=== PATIENT | male | born 1940 | race Caucasian/White ===

== ENCOUNTER 2018-11-08 17:07 | Inpatient (IN) | payer MEDICARE, OTHER ==
[~2018-11-08] VITALS: Ht 213 cm; Wt 89.8 kg
--- NOTE | 2018-11-08 16:45 | NUR ---
Report received from ANUSHA Carlson at [facility].
[2018-11-08 18:19] VITALS: BP 151/102
[2018-11-08] MEDS: TAMSULOSIN 0.4 MG (FLOMAX) CAP PO SCH (20:53)
--- NOTE | 2018-11-08 21:34 | PM&R H&P / Post Admit Assess ---
History of Present Illness HPI/Chief Complaint Chief complaint: Cervical spine stenosis status post predictable injury with upper extremity weakness History of present illness: This is an 78-year-old white male of Dr. Velarde in [facility] who is known to me from cervical spine surgery by Dr. Starr on 11/02/2018 at [facility] who is had a long wait for insurance approval from [facility] to be admitted to inpatient rehab due to severe cervical spine muscle weakness of the arms and legs. He had such severe stenosis that he has residual neurologic deficit to the upper extremities more than lower extremities. His bowels or not moving well but they did about 4 days ago he has not had any lung problems or prostate problems during his hospital course and [place] at [facility]. He thinks that he gets too drowsy with taking 2 of the hydrocodone pain pills in addition for the muscle relaxant so will decrease the dose on both but keep him comfortable nonetheless. His prior level of functioning was independent without the use of assistive devices and he will return home with his and supportive family. Source: patient, RN/MD, old records Exam Limitations: no limitations Date Seen 11/08/18 Time Seen by a Provider: 18:00 Attending Physician Calista Mercado DO PCP No,Local Physician Referring Physician Date of Admission Nov 08, 2018 at 17:48 Home Medications & Allergies Home Medications Reviewed patient Home Medication Reconciliation performed by pharmacy medication reconciliations install technician and/or nursing. Patients Allergies have been reviewed. Allergies Allergies Coded Allergies No Known Drug Allergies (Unverified11/08/18) Past Tgllzds-Ouizca-Jidzmc Hx Past Med/Social Hx: Reviewed Nursing Past Med/Soc Hx, Reviewed and Corrections made Patient Social History Marrital Status: Employed/Student: retired ([employer] profession in [place]) Alcohol Use: Denies Use Recreational Drug Use: No Smoking Status: Former Smoker Former Smoker, Quit: Nov 08, 1998 Type Used: Cigarettes Physical Abuse Screen: No Sexual Abuse: No Recent Foreign Travel: No Contact w/other who traveled: No Recent Hopitalizations: Yes Recent Infectious Disease Expo: No Immunizations Up To Date Date of Pneumonia Vaccine: Nov 04, 2016 Seasonal Allergies Seasonal Allergies: Yes Past Medical History Surgeries: Abdominal, Orthopedic Respiratory: Asthma Currently Using CPAP: No Currently Using BIPAP: No Genitourinary: Benign Prostatic Hyperpl, Prostate Problems History of Blood Disorders: No Family History Diabetes mellitus 19 FATHER G8 BROTHER G8 SISTER FH: aortic aneurysm 19 MOTHER FH: multiple sclerosis G8 SISTER FH: prostate cancer 19 FATHER Review of Systems Constitutional: see HPI EENTM: no symptoms reported Respiratory: no symptoms reported Cardiovascular: no symptoms reported Gastrointestinal: constipation Genitourinary: no symptoms reported Musculoskeletal: back pain Skin: no symptoms reported Psychiatric/Neurological: Numbness, Paresthesia, Tingling, Tremors, Weakness All Other Systems Reviewed Negative Unless Noted: Yes Physical Exam Exam Vital Signs Vital Signs Date Time Temp Pulse Resp B/P (MAP) Pulse Ox O2 Delivery O2 Flow Rate FiO2 11/08/18 18:19 37.1 80 16 151/102 94 Room Air Capillary Refill : General Appearance: No Apparent Distress, WD/WN, Chronically ill, Thin HEENT: PERRL/EOMI, Normal ENT Inspection, Pharynx Normal, Moist Mucous Membranes Neck: Full Range of Motion, Normal Inspection, Non Tender, Supple Respiratory: Chest Non Tender, Lungs Clear, Normal Breath Sounds, No Accessory Muscle Use, No Respiratory Distress Cardiovascular: Regular Rate, Rhythm, No Edema, No Gallop, No JVD, No Murmur Gastrointestinal: No Organomegaly, No Pulsatile Mass, Non Tender, Soft, Abnormal Bowel Sounds, Distended Back: Normal Inspection, No CVA Tenderness, No Vertebral Tenderness Extremity: Normal Capillary Refill, Normal Inspection, Normal Range of Motion, Non Tender, No Calf Tenderness, No Pedal Edema Neurologic/Psychiatric: Alert, Oriented x3, Normal Mood/Affect, stationary plant operators II-XII Norm as Tested, Motor Weakness (upper extremities 2/5 bilateral, legs 4/5) Skin: Normal Color, Warm/Dry Lymphatic: No Adenopathy Results Results/Procedures Labs Patient resulted labs reviewed. Assessment/Plan Assessment and Plan (1) Cervical spinal stenosis Status: Acute (2) Injury of cervical spine Status: Acute Qualifiers: Encounter type: subsequent encounter Qualified Codes: S14.109D - Unspecified injury at unspecified level of cervical spinal cord, subsequent encounter (3) BPH (benign prostatic hyperplasia) Status: Chronic Qualifiers: Lower urinary tract symptom presence: symptoms absent Qualified Codes: N40.0 - Benign prostatic hyperplasia without lower urinary tract symptoms (4) Constipation Status: Acute Qualifiers: Constipation type: slow transit constipation Qualified Codes: K59.01 - Slow transit constipation (5) Asthma Status: Chronic Qualifiers: Asthma severity: moderate Asthma persistence: unspecified Asthma complication type: unspecified Qualified Codes: J45.909 - Unspecified asthma, uncomplicated (6) Bilateral arm weakness Status: Acute (7) Risk for falls Status: Acute Post Admission Physician Asses Date seen by provider: Nov 08, 2018 Time seen by provider: 18:00 Admisison Dx: (1) Cervical spinal stenosis Status: Acute The preadmission screen agrees with the post admission assessment that the patient is a good candidate for inpatient rehabilitation. The patient will have a comprehensive program of inpatient rehabilitation with a goal of maximizing level of functional independence prior to discharge home with family. The patient will have PT/OT ninety minutes per day, each discipline, five days a week for gait, strengthening, conditioning, balance, ADLs, any patient/family/caregiver training as necessary. Speech therapy to do cognitive assessment and treat as indicated. Rehabilitation nursing to assist with bowel, bladder, skin, wound care, medication administration, pain management. Cryptography Teacher to assist with discharge planning, community reentry. SCD's for DVT prophylaxis. He appears to be well motivated to participate in three hours of therapy a day. He should be able to tolerate three hours of therapy a day from a medical standpoint. He should benefit from the three hours of therapy a day. He has a reasonable discharge plan, reasonable discharge rehabilitation goals and a supportive family. He has various comorbidities that need to be closely monitored with medications and treatments adjusted on a daily basis as needed. These include: see list Barriers to discharge for this patient who had been independent prior to this are for him to be modified independent to supervision for ADLs and mobility skills prior to discharge home with family, so as to lessen the burden of the caregivers. Risks for this patient include: 1. Fall 2. Fracture 3. DVT 4. Pulmonary embolism 5. Wound infection 6. Skin breakdown 7. Contractures 8. Poorly controlled pain 9. Urinary retention 10. UTI 11. Respiratory infection 12. Aspiration Estimated Length of Stay: 14 days Prognosis: Rehab prognosis appears good for goal of discharge home with family modified independent to supervision for ADLs and mobility skills. CALISTA MERCADO DO Nov 08, 2018 21:34
[2018-11-08] MEDS ORDERED: CALCIUM CARBONATE 500 MG (TUMS) TAB.CHEW PO PRN (21:45)
[2018-11-08] MEDS ORDERED: BISACODYL 10 MG SUPP (DULCOLAX) PR PRN (21:45)
[2018-11-08] MEDS ORDERED: diphenhydrAMINE 25 MG TAB (BENADRYL) PO PRN (21:45)
[2018-11-08] MEDS ORDERED: FLEET ENEMA ADULT 1 EA BTL PR PRN (21:45)
[2018-11-08] MEDS ORDERED: ONDANSETRON 4 MG (ZOFRAN) ORAL DISSOLVE TAB PO PRN (21:45)
[2018-11-08] MEDS ORDERED: LACTULOSE SYRUP 10GM/15ML (ENULOSE) 30ML UDC PO PRN (21:45)
[2018-11-08] MEDS: POLYETHYLENE GLYCOL 17 GM (MIRALAX) PACK PO SCH (21:51)
[2018-11-08] MEDS: SENNA W/DOCUSATE (SENOKOT S) TABLET PO SCH (21:51)
[2018-11-09] MEDS: HYDROcodone/APAP 5 MG/325 MG (LORTAB) TAB PO PRN ×6 (01:21→23:53)
[2018-11-09 04:59] LABS: BASOPHILS % (AUTO) 0 % (0-10); EOSINOPHILS # (AUTO) 0.1 10^3/uL (0.0-0.3); EOSINOPHILS % (AUTO) 1 % (0-10); HEMATOCRIT 41 % (40-54); LYMPHOCYTES # (AUTO) 2.1 X 10^3 (1.0-4.0); LYMPHOCYTES % (AUTO) 23 % (12-44); MEAN CORPUSCULAR HEMOGLOBIN 32 PG (25-34); MEAN CORPUSCULAR HGB CONC 34 G/DL (32-36); MEAN CORPUSCULAR VOLUME 95 FL (80-99); MEAN PLATELET VOLUME 9.9 FL (7.4-10.4); MONOCYTES # (AUTO) 0.6 X 10^3 (0.0-1.0); MONOCYTES % (AUTO) 6 % (0-12); NEUTROPHILS # (AUTO) 6.2 X 10^3 (1.8-7.8); NEUTROPHILS % (AUTO) 69 % (42-75); PLATELET COUNT 257 10^3/uL (130-400); RED CELL DISTRIBUTION WIDTH 12.4 % (10.0-14.5)
[2018-11-09 05:18] LABS: ALANINE AMINOTRANSFERASE 34 U/L (0-55); ALBUMIN 3.9 GM/DL (3.2-4.5); ALKALINE PHOSPHATASE 106 U/L (40-136); BILIRUBIN,TOTAL 0.5 MG/DL (0.1-1.0); BUN/CREATININE RATIO 25; CALCIUM 9.1 MG/DL (8.5-10.1); CARBON DIOXIDE 26 MMOL/L (21-32); CHLORIDE 97 MMOL/L (98-107); CREATININE SERUM 0.89 MG/DL (0.60-1.30); GFR ESTIMATED > 60; GLUCOSE 172 MG/DL (70-105); POTASSIUM 4.5 MMOL/L (3.6-5.0); SODIUM 131 MMOL/L (135-145); TOTAL PROTEIN 6.5 GM/DL (6.4-8.2)
[2018-11-09 05:22] VITALS: BP 145/85
[2018-11-09] MEDS: RT-ADVAIR HFA 115/21 MCG PER PUFF IH SCH ×2 (07:10→19:13)
[2018-11-09] MEDS: DOCUSATE SODIUM 100 MG (COLACE) CAP PO PRN (08:51)
[2018-11-09] MEDS: BACLOFEN 10 MG (LIORESAL) TAB PO PRN (08:51)
[2018-11-09] MEDS: TAMSULOSIN 0.4 MG (FLOMAX) CAP PO SCH ×2 (08:51→19:49)
--- NOTE | 2018-11-09 08:56 | Physical Therapy Evaluation ---
PT Evaluation-General Medical Diagnosis Admission Date Nov 08, 2018 at 17:48 Medical Diagnosis: cervical spine surgery Onset Date: Nov 02, 2018 Therapy Diagnosis Therapy Diagnosis: impaired mobility, strength, endurance, balance Precautions Precautions/Isolations: Fall Prevention, Standard Precautions Referral Physician: Calista Mercado DO Reason for Referral: Evaluation/Treatment Medical History Additional Medical History Past Medical History Surgeries: Abdominal, Orthopedic Respiratory: Asthma Currently Using CPAP: No Currently Using BIPAP: No Genitourinary: Benign Prostatic Hyperpl, Prostate Problems History of Blood Disorders: No Reviewed History: Yes Social History Home: Single Level Current Living Status: Spouse Entry Into Home: Level Entry Prior/Core FIM Prior Level of Function Therapy Code Descriptions/Definitions Functional [place] Measure: 0=Not Assessed/NA 4=Minimal Assistance 1=Total Assistance 5=Supervision or Setup 2=Maximal Assistance 6=Modified [place] 3=Moderate Assistance 7=Complete [place] Therapy Quality Codes: 6 Independent with activity with or without an assistive device 5 Patient requires set up or clean up by helper. Patient completes activity by themselves 4 Supervision or touching assist (CGA). [place] provide cues , steadying assist 3 The helper provides less than half the effort to complete the activity 2 The helper provides more than half the effort to complete the activity 1 Dependent. The helper does all the effort to complete an activity 7 Patient refused to complete or attempt activity 9 The patient did not perform the activity before the current illness or injury 88 Not attempted due to Medical conditions or safety concerns Functional Abilities and Goals: Independent: Patient completed the activities by him/herself, with or without an assistive device, with no assistance from a helper. Needed Some Help: Patient needed partial assistance from another person to complete activities. Dependent: A helper completed the activities for the patient. Unknown: Not Applicable: Bed Mobility: 7 Transfers (B,C,W/C) (FIM): 7 Gait: 7 Stairs: 7 Indoor Mobility (Ambulation): Independent Stairs: Independent PT Evaluation-Current Subjective Patient in recliner pre tx, agrees to PT, has 4/10 pain in neck, nurse notified of pain because patient wants pain meds. Pt/Family Goals "to walk out of here" Objective Patient Orientation: Person, Place, Situation cervical collar ROM/Strength ROM Lower Extremities WNL Strenght Lower Extremities LLE (hip flexion 3+/5, knee flexion 4-/5, knee extension 4+/5, dorsiflexion 3/5), RLE (hip flexion 3+/5, knee flexion 4-/5, knee extension 4+/5, dorsiflexion 3+/5) Sensory Vision: Functional Hearing: Functional Sensation Right Lower Extremit: Impaired Sensation Left Lower Extremity: Impaired Transfers Therapy Code Descriptions/Definitions Functional [place] Measure: 0=Not Assessed/NA 4=Minimal Assistance 1=Total Assistance 5=Supervision or Setup 2=Maximal Assistance 6=Modified [place] 3=Moderate Assistance 7=Complete [place] Therapy Quality Codes: 6 Independent with activity with or without an assistive device 5 Patient requires set up or clean up by helper. Patient completes activity by themselves 4 Supervision or touching assist (CGA). [place] provide cues , steadying assist 3 The helper provides less than half the effort to complete the activity 2 The helper provides more than half the effort to complete the activity 1 Dependent. The helper does all the effort to complete an activity 7 Patient refused to complete or attempt activity 9 The patient did not perform the activity before the current illness or injury 88 Not attempted due to Medical conditions or safety concerns Transfers (B, C, W/C) (FIM): 4 Scootin Rollin Roll Left to Right (QC): 4 Supine to/from Sit: 4 Sit to/from Stand: 4 Sit to Lying (QC): 3 Lying to Sitting/Side of Bed(Q: 3 Sit to Stand (QC): 3 Chair/Txx-sj-Gxfqr Xfer(QC): 4 Car Transfer (QC): 4 Patient performs bed mobility with SBA, supine <-> sit min assist, sit <-> stand min assist, transfers CGA, car transfer CGA. Patient needs cues for hand placement and safety. Patient is reluctant to place hands on bed or armrest when standing or sitting for some reason. He needs cues every time. Gait Does the Patient Walk?: Yes Mode of Locomotion: Walk Anticipated Mode of Locomotion: Walk Gait (FIM): 4 Walk 10 feet (QC): 4 Walk 50 ft with 2 Turns(QC): 4 Walk 150 ft (QC): 4 Walking 10ft/uneven surface-QC: 4 Distance: 150'x2 Gait Level of Assist: 4 Gait Persons Needed: 1 Gait Assistive Device: FWW Comments/Gait Description Patient can ambulate 150' with a rolling walker with CGA (including 50' with at least 2 turns of 90 degrees and 10' over an uneven surface). Patient has un steady moments, uncoordinated steps, but no jose LOB. Ambulates slowly. Stairs Stairs (FIM): 1 #of Steps: 1 Level of Assist: 4 1 Step (curb) (QC): 3 Assistive Device: Walker Patient can go up and down 1 step with min assist. Cues for positioning and safety. Balance Sitting Static: Normal Sitting Dynamic: Normal Standing Static: Fair Standing Dynamic: Fair Treatment NuStep level 4 for 15 min. Assessment/Needs Patient has impaired mobility, strength, endurance, balance. He is weaker in arms than legs. Needs cues for positioning and safety during treatment. Rehab Potential: Fair PT Short Term Goals Short Term Goals Time Frame: Nov 16, 2018 Transfers (B,C,W/C) (FIM): 4 (CGA) Gait (FIM): 4 Gait Distance Comment: 200' Gait Level of Assist: 4 Gait Assistive Device: FWW PT Clay Modeler Goals Clay Modeler Goals PT Clay Modeler Goals Time Frame: Nov 30, 2018 Transfers (B,C,W/C) (FIM): 5 Sit to Lying (QC): 6 Lying-Sitting on Side/Bed(QC): 6 Sit to Stand (QC): 4 Rollin Roll Left to Right (QC): 6 Chair/Cvv-ka-Qxfyb Xfer(QC): 4 Car Transfer (QC): 4 Gait (FIM): 5 Distance: 300' Walk 10 feet (QC): 4 Walk 10ft-Uneven Surface(QC): 4 Walk 50ft with 2 Turns (QC): 4 Walk 150 ft (QC): 4 Gait Level of Assist: 5 Gait Assistive Device: FWW Stairs (FIM): 2 # of Steps: 4 1 Step (curb) (QC): 4 4 Steps (QC): 4 Stairs Level Of Assist: 5 PT Plan Problem List Problem List: Activity Tolerance, Functional Strength, Safety, Balance, Gait, Transfer, Bed Mobility, ROM Treatment/Plan Treatment Plan: Continue Plan of Care Treatment Plan: Bed Mobility, Education, Functional Activity Mann, Functional Strength, Group Therapy, Gait, Safety, Therapeutic Exercise, Transfers Treatment Duration: Nov 30, 2018 Frequency: At least 5 of 7 days/Wk (IRF) Estimated Hrs Per Day: 1.5 hours per day Patient and/or Family Agrees t: Yes Safety Risks/Education Patient Education: Gait Training, Transfer Techniques, Steps, Reviewed Precautions, Correct Positioning, Safety Issues Teaching Recipient: Patient Teaching Methods: Demonstration, Discussion Response to Teaching: Reinforcement Needed Discharge Recommendations Plan Patient will perform bed mobility and transfer training, balance and endurance training, functional strengthening, stair training, gait training, and education, to improve functional mobility and independence at home. Therapy Discharge Recommendati: Other, See Comments (home with family assist) Time/GCodes Time In: 0800 Time Out: 0900 Total Billed Treatment Time: 60 Total Billed Treatment 1 visit EVM 30' FA 15' EX 15' OSORIO LOCKHART PT Nov 09, 2018 08:56
--- NOTE | 2018-11-09 08:59 | PM&R Progress Note ---
Subjective HPI/CC On Admission Date Seen by Provider: Nov 09, 2018 Time Seen by Provider: 09:00 Chief complaint: Cervical spine stenosis status post predictable injury with upper extremity weakness History of present illness: This is an 78-year-old white male of Dr. Velarde in [facility] who is known to me from cervical spine surgery by Dr. Starr on 11/02/2018 at [facility] who is had a long wait for insurance approval from [facility] to be admitted to inpatient rehab due to severe cervical spine muscle weakness of the arms and legs. He had such severe stenosis that he has residual neurologic deficit to the upper extremities more than lower extremities. His bowels or not moving well but they did about 4 days ago he has not had any lung problems or prostate problems during his hospital course and [place] at [facility]. He thinks that he gets too drowsy with taking 2 of the hydrocodone pain pills in addition for the muscle relaxant so will decrease the dose on both but keep him comfortable nonetheless. His prior level of functioning was independent without the use of assistive devices and he will return home with his and supportive family. Subjective/Events-last exam Pt doing very good but improving pain control with alternating Lortab and Baclofen, K Pad and Voltaren gel. Suppository and soap suds enema will be initiated today to get bowels moving Has limited range of motion lifting this arms due to the cervical spine stenosis and spinal cord injury Will need to recheck him from OT and PT standpoint Conferred with RN Checked meds and labs Reviewed therapy notes Review of Systems General: Fatigue Musculoskeletal: arm pain, leg pain Objective Exam Vital Signs Vital Signs Date Time Temp Pulse Resp B/P (MAP) Pulse Ox O2 Delivery O2 Flow Rate FiO2 11/09/18 21:01 Room Air 11/09/18 20:12 36.2 11/09/18 19:13 94 11/09/18 17:24 84 20 157/79 (105) Capillary Refill : General Appearance: No Apparent Distress, WD/WN, Chronically ill, Thin HEENT: PERRL/EOMI, Normal ENT Inspection, Pharynx Normal, Moist Mucous Membranes Neck: Full Range of Motion, Normal Inspection, Non Tender, Supple Respiratory: Chest Non Tender, Lungs Clear, Normal Breath Sounds, No Accessory Muscle Use, No Respiratory Distress Cardiovascular: Regular Rate, Rhythm, No Edema, No Gallop, No JVD, No Murmur Gastrointestinal: No Organomegaly, No Pulsatile Mass, Non Tender, Soft, Abnormal Bowel Sounds, Distended Back: Normal Inspection, No CVA Tenderness, No Vertebral Tenderness Extremity: Normal Capillary Refill, Normal Inspection, Normal Range of Motion, Non Tender, No Calf Tenderness, No Pedal Edema Neurologic/Psychiatric: Alert, Oriented x3, Normal Mood/Affect, tooth cutter clutch II-XII Norm as Tested, Motor Weakness (upper extremities 2/5 bilateral, legs 4/5) Skin: Normal Color, Warm/Dry Lymphatic: No Adenopathy Results/Procedures Lab Laboratory Tests 11/09/18 04:40 Patient resulted labs reviewed. FIM Transfers Therapy Code Descriptions/Definitions Functional [place] Measure: 0=Not Assessed/NA 4=Minimal Assistance 1=Total Assistance 5=Supervision or Setup 2=Maximal Assistance 6=Modified [place] 3=Moderate Assistance 7=Complete [place] Therapy Quality Codes: 6 Independent with activity with or without an assistive device 5 Patient requires set up or clean up by helper. Patient completes activity by themselves 4 Supervision or touching assist (CGA). [place] provide cues , steadying assist 3 The helper provides less than half the effort to complete the activity 2 The helper provides more than half the effort to complete the activity 1 Dependent. The helper does all the effort to complete an activity 7 Patient refused to complete or attempt activity 9 The patient did not perform the activity before the current illness or injury 88 Not attempted due to Medical conditions or safety concerns Assessment/Plan Assessment and Plan Assess & Plan/Chief Complaint Assessment: Cervical spine injury Extremity weakness Constipation Asthma BPH Plan: Monitor lungs BM regimen (1) Cervical spinal stenosis Status: Acute (2) Constipation Status: Acute Qualifiers: Constipation type: slow transit constipation Qualified Codes: K59.01 - Slow transit constipation (3) Asthma Status: Chronic Qualifiers: Asthma severity: moderate Asthma persistence: unspecified Asthma complication type: unspecified Qualified Codes: J45.909 - Unspecified asthma, uncomplicated (4) Bilateral arm weakness Status: Acute (5) Injury of cervical spine Status: Acute Qualifiers: Encounter type: subsequent encounter Qualified Codes: S14.109D - Unspecified injury at unspecified level of cervical spinal cord, subsequent encounter (6) BPH (benign prostatic hyperplasia) Status: Chronic Qualifiers: Lower urinary tract symptom presence: symptoms absent Qualified Codes: N40.0 - Benign prostatic hyperplasia without lower urinary tract symptoms (7) Risk for falls Status: Acute MAYRA TORREZ DO Nov 09, 2018 08:59
[2018-11-09] MEDS: SENNA W/DOCUSATE (SENOKOT S) TABLET PO SCH ×2 (09:00→19:49)
[2018-11-09] MEDS ORDERED: FLUT1DIS26 IH (09:29)
[2018-11-09] MEDS ORDERED: DOCU-143 PO (09:29)
[2018-11-09] MEDS ORDERED: TAMS0.4C98 PO (09:29)
[2018-11-09] MEDS ORDERED: ACET-2267 PO (09:29)
--- NOTE | 2018-11-09 09:32 | NUR ---
UPDATED MED REC WITH DISCHARGE INSTRUCTIONS FROM [facility]. NOTE THE FOLLOWING CHANGES WERE MADE AT THAT DISCHARGE THAT ARE NOT CURRENTLY REFLECTED ON THE HOME MED REC: START TAKING: DIAZEPAM 5MG Q6H PRN HYDROCODONE 10-325MG 1-2 Q4H PRN (THESE ARE BOTH SCRATCHED OUT HOWEVER IT IS UNCLEAR WHO MARKED THROUGH THEM) STOP TAKING: TYLENOL 500MG BID
[2018-11-09] MEDS ORDERED: BISACODYL 10 MG SUPP (DULCOLAX) PR SCH (09:45)
--- NOTE | 2018-11-09 10:44 | ST Cognitive Linguistic Eval ---
Speech Evaluation-General Medical Diagnosis cervical spine surgery Onset Date: Nov 02, 2018 Therapy Diagnosis Therapy Diagnosis: Cognitive-communication Precautions Precautions: Fall Precautions/Isolations: Fall Prevention, Standard Precautions Referral Referring Physician: Dr. Mercado Reason for Referral: Evaluation/Treatment Medical History Pertinent Medical History: Back Injury Patient has had spinal stenosis Current History Cervical Spine Surgery Reviewed History: Yes Social History Home: Single Level Current Living Status: Spouse Speech PLF-Current Status Prior Level of Function Patient lives at home with his where he plans to return post rehab. Subjective The patient was pleasant and cooperative with the cognitive assessment. Language Eval: Auditory Comprehends Simple Yes/No Ques: Functional Indent/Objects Multiple Ling: Functional Ident/Pics in Multiple Ling: Functional Follows 1-Step Commands: Functional Follows Complex Directions: Functional Follows General Conversations: Functional Language Eval: Verbal Language Completes Spontaneous Greeting: Functional Produces Auto, Serial Info: Functional Imitates Simple Words/Phrases: Functional Word Finding: Functional Requests Basic Needs: Functional States Basic Personal Info: Functional Expresses Complex Ideas: Functional Objective Cognitive Domain Attention: WNL Memory: Mild Problem Solving: Functional Executive Functions: WNL Visuospatial Skills: WNL Composite Severity Rating: WNL Clock Drawing Severity Rating: WNL Objective Formal/Standardized Tests [facility] Mental Status ([facility]) Results 28/30, within normal range of function Oral Motor/Speech Production Within functional limits Impression The patient is an 78 year old man who was admitted to the ARU s/p spine surgery. The patient was given the SLUMS with normal range of function indicated with a score of 28/30. The patient will not be receiving skilled ST at this time. Communication/Social Cognition Comprehension: 7 Expression: 7 Social Interaction: 7 Problem Solvin Memory: 7 Speech Patient Assess Expression of Ideas/Wants: Expression (4) Understanding Verbal Content: Understands (4) Brief Interview-Mental Status: Yes Repetition of Three Words: Three (3) Temporal Orientation: Year: Correct (3) Temporal Orientation: Month: Accurate within 5 days(2) Temporal Orientation: Day: Correct (1) Recall : Wear to say "Sock": Yes, no cue required (2) Recall : Color: Yes, no cue required (2) Recall : Bed: Yes,after cueing (1) Memory/Recall Ability: Current season, Location of own room, That he or she is in a hsp/hsp unit Speech-Plan Patient/Family Goals Patient/Family Goals: The patient plans on returning home with his post rehab. Treatment Plan Speech Therapy Treatment Plan: Discontinue ST The patient does not meet requirements for cognitive therapy. Treatment Duration: Nov 09, 2018 Frequency: 1 time per week Estimated Hrs Per Day: .25 hour per day Rehab Potential: Fair Barriers to Learning: None identified Pt/Family Agrees to Plan: Yes Safety Risks/Education Teaching Recipient: Patient Teaching Methods: Discussion Response to Teaching: Verbalize Understanding Education Topics Provided: Safety within his room and communication of his wants/needs Time Speech Therapy Time In: 09:15 Speech Therapy Time Out: 09:30 Total Billed Time: 15 Billed Treatment Time 1, SPSNDCOMP ADEN Johnson Nov 09, 2018 10:44
[2018-11-09] MEDS ORDERED: DICLOFENAC 1% GEL 100 GM (VOLTAREN) TUBE TOP PRN (11:00)
--- NOTE | 2018-11-09 13:34 | Occupational Therapy Eval ---
OT Evaluation-General/PLF Medical Diagnosis Admission Date Nov 08, 2018 at 17:48 Medical Diagnosis: cervical spine surgery Onset Date: Nov 02, 2018 Therapy Diagnosis Therapy Diagnosis: impaired self care skills Precautions Precautions/Isolations: Fall Prevention, Standard Precautions Safety Interventions: None Referral Physician: Calista Mercado DO Medical History Pertinent Medical History: Back Injury Additional Medical History BPH, Asthma Current History Pt s/p cervical spine surgery. Has rigid cervical collar in place Reviewed History: Yes Social History Home: Single Level Current Living Status: Spouse Entry Into Home: Level Entry ADL-Prior Level of Function Therapy Code Descriptions/Definitions Functional [place] Measure: 0=Not Assessed/NA 4=Minimal Assistance 1=Total Assistance 5=Supervision or Setup 2=Maximal Assistance 6=Modified [place] 3=Moderate Assistance 7=Complete [place] Therapy Quality Codes: 6 Independent with activity with or without an assistive device 5 Patient requires set up or clean up by helper. Patient completes activity by themselves 4 Supervision or touching assist (CGA). [place] provide cues , steadying assist 3 The helper provides less than half the effort to complete the activity 2 The helper provides more than half the effort to complete the activity 1 Dependent. The helper does all the effort to complete an activity 7 Patient refused to complete or attempt activity 9 The patient did not perform the activity before the current illness or injury 88 Not attempted due to Medical conditions or safety concerns Functional Abilities and Goals: Independent: Patient completed the activities by him/herself, with or without an assistive device, with no assistance from a helper. Needed Some Help: Patient needed partial assistance from another person to complete activities. Dependent: A helper completed the activities for the patient. Unknown: Not Applicable: ADL PLOF Comments Pt reports being independent with self care and mobility prior to admission. Did not use any assistive devices for mobility. Self Care: Independent DME/Equipment: Bath Chair, Shower, Tall Toilet Drive Self: Yes OT Current Status Subjective Pt sitting inchair, agrees to therapy. Pt reports 7/10 neck pain. Mental Status/Objective Patient Orientation: Person, Place, Situation Current Glasses/Contacts: Yes Hearing Aids: No Dentures/Partials: Yes Hand Dominance: Right Upper Extremity ROM Pt has minimal active shoulder ROM bilaterally. Able to tolerate PROM to ~90degrees. Upper Extremity Coordination Poor bilateral UE. (Pt unable to maintain personal property assessor on washcloth or comb during grooming tasks) Upper Extremity Sensation Decreased bilateral UE. Pt reports numbness and tingling. Upper Extremity Strength Formal MMT not completed secondary to recent cervical surgery. Pt has impaired strength bilaterally ADL-Treatment ADL-Current Pt participated in UE assessment while seated. Grooming tasks completed while sitting in chair. Pt unable to bring washcloth up to face. With elbow supported, but is able to wash lower portion of face, but has difficulty maintaining grasp on washcloth, requires assist to complete task. Pt unable to raise arm to brush hair. With assist to flex shoulder pt is able to comb sides of hair with hand over hand assist, but unable to comb back of head. Pt states he soaked his dentures last night and had assist to put them in his mouth this morning. Pt declined shower, but agreed to change shirt. Total assist required to doff/don shirt. Pt states he already changed shorts this morning. Pt unable to reach feet to don socks. Pt was instructed in use of sock aid. When sock was placed on sock aid, pt was able to don socks with mod assist and increased time. Pt sit to stand with min assist. Gait to restroom with FWW. Pt demonstrated ability to transfer on/off toilet with minimal assistance. Return to chair with min assist. Pt fatigues with activity and requires rest breaks throughout treatment. Pt was issued medium resistance therapy sponge to increase personal property assessor strength. Pt performed bilateral hand personal property assessor exercises x20 reps to increase strength for functional tasks. Education provided regarding role of therapy and plan of care. Pt states understanding of education and is in agreement with plan. Pt sitting in chair with needs met after session. Eating (FIM): 1 (nurse aide reports pt required total assist to eat breakfast this morning) Eating (QC): 1 Grooming (FIM): 1 Upper Body Dressing (FIM): 1 Upper Body Dressing (QC): 1 Toilet/Commode Transfer (FIM): 4 Toilet Transfer (QC): 3 Education OT Patient Education: Rehab process Teaching Recipient: Patient Teaching Methods: Discussion Response to Teaching: Verbalize Understanding OT Short Term Goals Short Term Goals Time Frame: Nov 16, 2018 Eating(FIM): 3 Grooming(FIM): 3 Upper Body Dressing(FIM): 3 Lower Body Dressing(FIM): 3 Toilet/Commode Transfer(FIM): 4 (CGA) Additional Short Term Goals: 1-Demonstrate ADL Tasks, 2-Verbalize Understanding, 3-ImproveStrength/Mann 1=Demonstrate adherence to instructed precautions during ADL tasks. 2=Patient will verbalize/demonstrate understanding of assistive d evices/modifications for ADL. 3=Patient will improve strength/tolerance for activity to enable patient to perform ADL's. OT Mcfp Goals Mcfp Goals Time Frame: Nov 30, 2018 Eating (FIM): 5 Eating (QC): 5 Groomin Oral Hygiene (QC): 5 Bathing(FIM): 5 Shower/Bathe Self (QC): 4 Upper Body Dressing(FIM): 5 Upper Body Dressing (QC): 5 Lower Body Dressing(FIM): 5 Lower Body Dressing (QC): 4 On/Off Footwear (QC): 5 Toileting(FIM): 5 Toileting Hygiene (QC): 5 Toilet/Commode Transfer(FIM): 5 Toilet/Commode Transfer (QC): 5 Shower Transfer(FIM): 5 Additional Goals: 1-Demonstrate ADL Tasks, 2-Verbalize Understanding, 3- ImproveStrength/Mann 1=Demonstrate adherence to instructed precautions during ADL tasks. 2=Patient will verbalize/demonstrate understanding of assistive devices/modifications for ADL. 3=Patient will improve strength/tolerance for activity to enable patient to perform ADL's. OT Education/Plan Problem List/Assessment Assessment: Decreased Activ Tolerance, Decreased UE Strength, Dependent Transfers, Impaired Coordination, Impaired Funct Balance, Impaired I ADL's, Impaired Self-Care Skills, Restricted Funct UE ROM Pt s/p cervical surgery with decreased strength and coordination impacting ability to perform functional tasks. Pt to benefit from skilled OT intervention for ADL training, transfers, strengthening, coordination, adaptive equipment training, and home safety education to increase level of independence and allow safe discharge home. Discharge Recommendations Plan/Recommendations: Continue POC Treatment Plan/Plan of Care Treatment,Training & Education: Yes Patient would benefit from OT for education, treatment and training to promote independence in ADL's, mobility, safety and/or upper extremity function for ADL's. Plan of Care: ADL Retraining, Functional Mobility, Group Exercise/Act as Ind, UE Funct Exercise/Act, UE Neuromus Re-Ed/Coord Treatment Duration: Nov 30, 2018 Frequency: At least 5 of 7 days/Wk (IRF) Estimated Hrs Per Day: 1.5 hours per day Agreement: Yes Rehab Potential: Fair Time/GCodes Start Time: 09:30 Stop Time: 11:00 Total Time Billed (hr/min): 90 Billed Treatment Time 1 visit, EVM(30minutes), ADLx4(60minutes), RACHELLE SUAREZ OT Nov 09, 2018 13:34
--- NOTE | 2018-11-09 13:35 | Physical Therapy Daily Note ---
PT Daily Note-Current Subjective Patient in recliner pre tx, agrees to PT, has no complaints of pain. Appearance Patient in recliner post tx with nurse call, phone, tray, all needs met. Mental Status Patient Orientation: Person, Place, Situation Transfers Therapy Code Descriptions/Definitions Functional [place] Measure: 0=Not Assessed/NA 4=Minimal Assistance 1=Total Assistance 5=Supervision or Setup 2=Maximal Assistance 6=Modified [place] 3=Moderate Assistance 7=Complete [place] Therapy Quality Codes: 6 Independent with activity with or without an assistive device 5 Patient requires set up or clean up by helper. Patient completes activity by themselves 4 Supervision or touching assist (CGA). [place] provide cues , steadying assist 3 The helper provides less than half the effort to complete the activity 2 The helper provides more than half the effort to complete the activity 1 Dependent. The helper does all the effort to complete an activity 7 Patient refused to complete or attempt activity 9 The patient did not perform the activity before the current illness or injury 88 Not attempted due to Medical conditions or safety concerns Transfers (B, C, W/C) (FIM): 4 Sit to/from Stand: 4 Bed to/from Chair: 4 CGA, needs cues for positioning Gait Training Gait (FIM): 4 Distance: 150'x2 Gait Level of Assist: 4 Gait Persons Needed: 1 Gait Assistive Device: FWW CGA, some unsteadiness but no LOB, slow ambulation Exercises Standing: Hip Abduction, Heel/toe raises, Marching, Mini squats LAQ alternating for 5 min Treatments ambulation, transfers, LE exercise, toileting (patient needs assist getting pants down and up) Assessment Current Status: Fair Progress improving LE strength and endurance PT Short Term Goals Short Term Goals Time Frame: Nov 16, 2018 Transfers (B,C,W/C) (FIM): 4 (CGA) Gait (FIM): 4 Gait Distance Comment: 200' Gait Level of Assist: 4 Gait Assistive Device: FWW PT Half-Way Goals Half-Way Goals PT Rn Anesthesiology Goals Time Frame: Nov 30, 2018 Transfers (B,C,W/C) (FIM): 5 Sit to Lying (QC): 6 Lying-Sitting on Side/Bed(QC): 6 Sit to Stand (QC): 4 Rollin Roll Left to Right (QC): 6 Chair/Ntu-jx-Knohh Xfer(QC): 4 Car Transfer (QC): 4 Gait (FIM): 5 Distance: 300' Walk 10 feet (QC): 4 Walk 10ft-Uneven Surface(QC): 4 Walk 50ft with 2 Turns (QC): 4 Walk 150 ft (QC): 4 Gait Level of Assist: 5 Gait Assistive Device: FWW Stairs (FIM): 2 # of Steps: 4 1 Step (curb) (QC): 4 4 Steps (QC): 4 Stairs Level Of Assist: 5 PT Plan Problem List Problem List: Activity Tolerance, Functional Strength, Safety, Balance, Gait, Transfer, Bed Mobility Treatment/Plan Treatment Plan: Continue Plan of Care Treatment Plan: Bed Mobility, Education, Functional Activity Mann, Functional Strength, Group Therapy, Gait, Safety, Therapeutic Exercise, Transfers Treatment Duration: Nov 30, 2018 Frequency: At least 5 of 7 days/Wk (IRF) Estimated Hrs Per Day: 1.5 hours per day Patient and/or Family Agrees t: Yes Safety Risks/Education Patient Education: Gait Training, Transfer Techniques, Correct Positioning, Safety Issues Teaching Recipient: Patient Teaching Methods: Demonstration, Discussion Response to Teaching: Reinforcement Needed Time/GCodes Time In: 1300 Time Out: 1330 Total Billed Treatment Time: 30 Total Billed Treatment 1 visit EX 15' GT 15' OSORIO LOCKHART PT Nov 09, 2018 13:35
--- NOTE | 2018-11-09 14:30 | NUR ---
Met with patient to complete initial assessment. Patient admitted to ARU on 11/08, with a diagnosis of Spinal Cord Dysfunction - Non Traumatic; Cervical Spondylosis with Myelopathy; Severe Cervical Stenosis, Neural Canal and Neural Foramen; Cervical Radiculopathy. Patient underwent C2-T2 PSF/C3-7 laminectomy with bone graft; s/p dura tear. This procedure was completed at [facility], by Dr. Starr. Prior to hospitalization the patient was living with his spouse in [place], [place]. He was reportedly independent with ADLs and functionally mobile without the use of an AD. Patient states he has a hip kit, shower chair, and a tall toilet. Patient identifies his PCP as Dr. Sanchez Pandey of [place], [place]. Patient identified his spouse, Kathryn as his primary contact ([phone]). Patient confirmed his primary insurance provider to [employer], with no supplemental coverage. Patient states his preferred pharmacy is [facility]. The purpose of Weekly Team Conference was discussed and patient displayed understanding and no concerns. Will continue to follow for ongoing discharge planning.
--- NOTE | 2018-11-09 14:30 | NUR ---
Met with patient and spouse to review Team Conference Summary. Patient agreeable to information discussed as well as to a continued stay with review at the next conference, 11/16. Clinical updates are required to be submitted to [facility], November 15. Will continue to follow for ongoing discharge planning.
[2018-11-09] MEDS: POLYETHYLENE GLYCOL 17 GM (MIRALAX) PACK PO SCH ×2 (15:19→19:55)
[2018-11-09 17:24] VITALS: BP 157/79
[2018-11-10] MEDS: HYDROcodone/APAP 5 MG/325 MG (LORTAB) TAB PO PRN ×5 (04:11→20:37)
[2018-11-10 05:04] VITALS: BP 155/82
[2018-11-10] MEDS: RT-ADVAIR HFA 115/21 MCG PER PUFF IH SCH ×2 (07:35→19:54)
[2018-11-10] MEDS: TAMSULOSIN 0.4 MG (FLOMAX) CAP PO SCH ×2 (08:30→20:37)
--- NOTE | 2018-11-10 08:57 | Physical Therapy Daily Note ---
PT Daily Note-Current Subjective Patient in recliner pre tx, agrees to PT, has 8/10 pain, nurse notified and he got pain meds during treatment. Appearance Patient in recliner post tx with nurse call, phone, tray, legs elevated and requested SCD's on. Mental Status Patient Orientation: Normal For Age cervical collar Transfers Therapy Code Descriptions/Definitions Functional [place] Measure: 0=Not Assessed/NA 4=Minimal Assistance 1=Total Assistance 5=Supervision or Setup 2=Maximal Assistance 6=Modified [place] 3=Moderate Assistance 7=Complete [place] Therapy Quality Codes: 6 Independent with activity with or without an assistive device 5 Patient requires set up or clean up by helper. Patient completes activity by themselves 4 Supervision or touching assist (CGA). [place] provide cues , steadying assist 3 The helper provides less than half the effort to complete the activity 2 The helper provides more than half the effort to complete the activity 1 Dependent. The helper does all the effort to complete an activity 7 Patient refused to complete or attempt activity 9 The patient did not perform the activity before the current illness or injury 88 Not attempted due to Medical conditions or safety concerns Transfers (B, C, W/C) (FIM): 4 Sit to/from Stand: 4 Bed to/from Chair: 4 Min assist sit to stand from lower surfaces, CGA for transfers, cues for hand placement Gait Training Gait (FIM): 4 Distance: 150'x2 Gait Level of Assist: 4 Gait Persons Needed: 1 Gait Assistive Device: FWW slow ambulation, more unsteady but still CGA, difficulty with clearance and step-through on right side Exercises sit to stand from elevated surface 3 sets of 10, LAQ alternating for 5 min NuStep Minutes: 15 NuStep Workload: 4 Treatments LE exercise, ambulation, transfers Assessment Current Status: Fair Progress patient has good motivation PT Short Term Goals Short Term Goals Time Frame: Nov 16, 2018 Gait (FIM): 4 Gait Distance Comment: 200' Gait Level of Assist: 4 Gait Assistive Device: FWW PT Manufacturing Chief Engineer Goals Usp Goals PT Usp Goals Time Frame: Nov 30, 2018 Transfers (B,C,W/C) (FIM): 5 Sit to Lying (QC): 6 Lying-Sitting on Side/Bed(QC): 6 Sit to Stand (QC): 4 Rollin Roll Left to Right (QC): 6 Chair/Fie-vj-Lwluy Xfer(QC): 4 Car Transfer (QC): 4 Gait (FIM): 5 Distance: 300' Walk 10 feet (QC): 4 Walk 10ft-Uneven Surface(QC): 4 Walk 50ft with 2 Turns (QC): 4 Walk 150 ft (QC): 4 Gait Level of Assist: 5 Gait Assistive Device: FWW Stairs (FIM): 2 # of Steps: 4 1 Step (curb) (QC): 4 4 Steps (QC): 4 Stairs Level Of Assist: 5 PT Plan Problem List Problem List: Activity Tolerance, Functional Strength, Safety, Balance, Gait, Transfer, Bed Mobility, ROM Treatment/Plan Treatment Plan: Continue Plan of Care Treatment Plan: Bed Mobility, Education, Functional Activity Mann, Functional Strength, Group Therapy, Gait, Safety, Therapeutic Exercise, Transfers Treatment Duration: Nov 30, 2018 Frequency: At least 5 of 7 days/Wk (IRF) Estimated Hrs Per Day: 1.5 hours per day Patient and/or Family Agrees t: Yes Safety Risks/Education Patient Education: Gait Training, Transfer Techniques, Correct Positioning, Safety Issues Teaching Recipient: Patient Teaching Methods: Demonstration, Discussion Response to Teaching: Reinforcement Needed Time/GCodes Time In: 0800 Time Out: 0900 Total Billed Treatment Time: 60 Total Billed Treatment 1 visit EX 25' FA 15' GT 20' OSORIO LOCKHART PT Nov 10, 2018 08:57
[2018-11-10] MEDS: POLYETHYLENE GLYCOL 17 GM (MIRALAX) PACK PO SCH ×2 (09:00→20:40)
[2018-11-10] MEDS: SENNA W/DOCUSATE (SENOKOT S) TABLET PO SCH ×2 (09:00→20:40)
--- NOTE | 2018-11-10 12:56 | PM&R Progress Note ---
Subjective HPI/CC On Admission Date Seen by Provider: Nov 10, 2018 Time Seen by Provider: 09:00 Chief complaint: Cervical spine stenosis status post predictable injury with upper extremity weakness History of present illness: This is an 78-year-old white male of Dr. Velarde in [facility] who is known to me from cervical spine surgery by Dr. Starr on 11/02/2018 at [facility] who is had a long wait for insurance approval from [facility] to be admitted to inpatient rehab due to severe cervical spine muscle weakness of the arms and legs. He had such severe stenosis that he has residual neurologic deficit to the upper extremities more than lower extremities. His bowels or not moving well but they did about 4 days ago he has not had any lung problems or prostate problems during his hospital course and [place] [facility]. He thinks that he gets too drowsy with taking 2 of the hydrocodone pain pills in addition for the muscle relaxant so will decrease the dose on both but keep him comfortable nonetheless. His prior level of functioning was independent without the use of assistive devices and he will return home with his and supportive family. Subjective/Events-last exam Large BM last night. Doing extremely well. Balance issues today and reassured . Walking not as good but we will pursue that today. Overall in improved condition. Will need to recheck him from OT and PT standpoint Conferred with RN Checked meds and labs Reviewed therapy notes Review of Systems Musculoskeletal: neck pain, arm pain, leg pain Objective Exam Vital Signs Vital Signs Date Time Temp Pulse Resp B/P (MAP) Pulse Ox O2 Delivery O2 Flow Rate FiO2 11/10/18 19:56 95 Room Air 11/10/18 16:22 36.4 80 16 130/75 (93) Capillary Refill : General Appearance: No Apparent Distress, WD/WN, Chronically ill, Thin HEENT: PERRL/EOMI, Normal ENT Inspection, Pharynx Normal, Moist Mucous Membranes Neck: Full Range of Motion, Normal Inspection, Non Tender, Supple Respiratory: Chest Non Tender, Lungs Clear, Normal Breath Sounds, No Accessory Muscle Use, No Respiratory Distress Cardiovascular: Regular Rate, Rhythm, No Edema, No Gallop, No JVD, No Murmur Gastrointestinal: No Organomegaly, No Pulsatile Mass, Non Tender, Soft, Abnorm al Bowel Sounds, Distended Back: Normal Inspection, No CVA Tenderness, No Vertebral Tenderness Extremity: Normal Capillary Refill, Normal Inspection, Normal Range of Motion, Non Tender, No Calf Tenderness, No Pedal Edema Neurologic/Psychiatric: Alert, Oriented x3, Normal Mood/Affect, remote inpatient coder II-XII Norm as Tested, Motor Weakness (upper extremities 2/5 bilateral, legs 4/5) Skin: Normal Color, Warm/Dry Lymphatic: No Adenopathy Results/Procedures Lab Patient resulted labs reviewed. FIM Transfers Therapy Code Descriptions/Definitions Functional [place] Measure: 0=Not Assessed/NA 4=Minimal Assistance 1=Total Assistance 5=Supervision or Setup 2=Maximal Assistance 6=Modified [place] 3=Moderate Assistance 7=Complete [place] Therapy Quality Codes: 6 Independent with activity with or without an assistive device 5 Patient requires set up or clean up by helper. Patient completes activity by themselves 4 Supervision or touching assist (CGA). [place] provide cues , steadying assist 3 The helper provides less than half the effort to complete the activity 2 The helper provides more than half the effort to complete the activity 1 Dependent. The helper does all the effort to complete an activity 7 Patient refused to complete or attempt activity 9 The patient did not perform the activity before the current illness or injury 88 Not attempted due to Medical conditions or safety concerns Transfers (B, C, W/C) (FIM): 4 Scootin Rollin Roll Left to Right (QC): 4 Supine to/from Sit: 4 Sit to/from Stand: 4 Sit to Lying (QC): 3 Sit to Stand (QC): 3 Chair/Yad-dk-Qsnxb Xfer(QC): 4 Bed to/from Chair: 4 Car Transfer (QC): 4 Gait Training Does the Patient Walk?: Yes Gait (FIM): 4 Distance: 150'x2 Walk 10 feet (QC): 4 Walk 50 ft with 2 Turns(QC): 4 Walk 150 ft (QC): 4 Walking 10ft/uneven surface-QC: 4 Gait Level of Assist: 4 Gait Persons Needed: 1 Gait Assistive Device: FWW Wheelchair Training Does the Pt Use a Wheelchair?: No Stair Training Stairs (FIM): 1 #of Steps: 1 1 Step (curb) (QC): 3 Level of Assist: 4 Mental Status/Objective Comprehension: 7 Expression: 7 Social Interaction: 7 Problem Solvin Memory: 7 ADL-Treatment Feedin (nurse aide reports pt required total assist to eat breakfast this morning) Eating (QC): 1 Groomin Upper Extremity Dressin Upper Body Dressing (QC): 1 Toilet/Commode Transfer: 4 Toilet Transfer (QC): 3 Assessment/Plan Assessment and Plan Assess & Plan/Chief Complaint Assessment: Cervical spine injury Extremity weakness Constipation Asthma BPH Plan: Monitor lungs BM regimen to be maintained (1) Cervical spinal stenosis Status: Acute (2) Constipation Status: Acute Qualifiers: Constipation type: slow transit constipation Qualified Codes: K59.01 - Slow transit constipation (3) Asthma Status: Chronic Qualifiers: Asthma severity: moderate Asthma persistence: unspecified Asthma complication type: unspecified Qualified Codes: J45.909 - Unspecified asthma, uncomplicated (4) Bilateral arm weakness Status: Acute (5) Injury of cervical spine Status: Acute Qualifiers: Encounter type: subsequent encounter Qualified Codes: S14.109D - Unspecified injury at unspecified level of cervical spinal cord, subsequent encounter (6) BPH (benign prostatic hyperplasia) Status: Chronic Qualifiers: Lower urinary tract symptom presence: symptoms absent Qualified Codes: N40.0 - Benign prostatic hyperplasia without lower urinary tract symptoms (7) Risk for falls Status: Acute MAYRA TORREZ DO Nov 10, 2018 12:56
--- NOTE | 2018-11-10 12:57 | Individualized Plan of Care ---
Individualized Plan of Care Rehab Nursing IPOC Order Admission Date Nov 08, 2018 at 17:48 Current Orders Orders Admission Order(Inpt,Obs,Sdc) (11/08/18 17:18) Vital Signs: Per Unit Policy ( 08,16,00 (11/08/18 17:18) Lime Sludge Mixer-Inpt Rehab Con (11/08/18 17:18) Rehab Nursing Orders-Ipoc (11/08/18 17:18) Physical Therapy Rehab Orders (11/08/18 17:18) Occupational Therapy Rehab Ord (11/08/18 17:18) Speech Therapy Rehab Orders (11/08/18 17:18) Intake & Output 06,14,22 (11/08/18 17:18) Precautions (Aru) (11/08/18 17:18) Weekly Weight (Lbs) WEEK (11/08/18 17:18) Rehab-Intensity Of Therapy (11/08/18 17:18) Initiate Admission Nursing Pro .admission (11/08/18 17:18) Initiate Admission Nursing Pro .admission (11/08/18 17:18) Cbc With Automated Diff (11/09/18 06:00) Comprehensive Metabolic Panel (11/09/18 06:00) General/Regular (11/08/18 Dinner) Follow-Up Appointment D/C (11/08/18 18:20) Nursing Communication (Order) (11/08/18 18:20) Ambulate 08,12,20 (11/08/18 18:36) Sequential Compression Device .once (11/08/18 18:36) Dvt/Vte Risk - Notifiy Physici .admit once (11/08/18 18:36) Ivan Morse 09,21 (11/08/18 18:42) Tamsulosin Capsule (Flomax Capsule) (11/08/18 21:00) Dressing Order (Intervention) DAILY (11/08/18 18:42) Docusate Sodium Capsule (Colace Capsule) (11/08/18 18:45) Fluticasone/Salmeterol Common (Advair 11 (11/09/18 09:00) Hydrocodone/Apap 5/325 Tablet (Lortab 5 (11/08/18 19:00) Baclofen Tablet (Lioresal Tablet) (11/08/18 19:00) Acetaminophen Tablet (Tylenol Tablet) (11/08/18 21:45) Calcium Carbonate Chew Tablet (Antacid C (11/08/18 21:45) Diphenhydramine Tablet (Benadryl Tablet) (11/08/18 21:45) Bisacodyl Suppository (Dulcolax Supposit (11/08/18 21:45) Na Phos/Na Biphos Enema (Fleet Enema Timothy (11/08/18 21:45) Lactulose Oral Solution (Enulose Oral So (11/08/18 21:45) Melatonin Tablet (Melatonin Tablet) (11/08/18 21:45) Ondansetron Oral Dissolve Tab (Zofran (11/08/18 21:45) Senna S Tablet (Senokot S Tablet) (11/08/18 21:45) Polyethylene Glycol Powder Pkt (Miralax (11/08/18 21:45) Soap Suds Enema DAILY PRN (11/09/18 09:35) Bisacodyl Suppository (Dulcolax Supposit (11/09/18 09:45) Heating Pad (11/09/18 10:57) Diclofenac 1% Gel (Voltaren 1% Gel) (11/09/18 11:00) Patient Visit (11/09/18 ) Speech Sound Lang Comp (11/09/18 ) Patient Visit (11/09/18 ) Pt Eval Moderate Complexity (11/09/18 ) Functional Activities, Ea 15 (11/09/18 ) Exercise Therap, Ea 15 Min (11/09/18 ) Gait Training, Ea 15 Min (11/09/18 ) Patient Visit (11/10/18 ) Exercise Therap, Ea 15 Min (11/10/18 ) Gait Training, Ea 15 Min (11/10/18 ) Functional Activities, Ea 15 (11/10/18 ) Patient Visit (11/10/18 ) Exercise Therap, Ea 15 Min (11/10/18 ) Gait Training, Ea 15 Min (11/10/18 ) Rehab Nursing Orders: Ongoing Assess. of Cognitive Status, Ongoing Assess. of Function Status, Bladder Management, Bowel Management, Disease Management & Educaiton, DVT Prophylaxis, Fall Prevention, Fluid/Electrolyte/Nutrition Mgmt, Infection Prevention, Management of Risks & Complications, Nutrition Management, Pain Management, Patient/Family Support, Safety Management Intensity of Therapy to be met Patient to be seen: Min.3h per day/5 of 7d PT IPOC Problem List: Activity Tolerance, Functional Strength, Safety, Balance, Gait, Transfer, Bed Mobility, ROM Treatment Plan: Continue Plan of Care Bed Mobility, Education, Functional Activity Mann, Functional Strength, Group Therapy, Gait, Safety, Therapeutic Exercise, Transfers Treatment Duration: Nov 30, 2018 Frequency: At least 5 of 7 days/Wk (IRF) Estimated Hrs Per Day: 1.5 hours per day OT IPOC Problems: Decreased Activ Tolerance, Decreased UE Strength, Dependent Transf ers, Impaired Coordination, Impaired Funct Balance, Impaired I ADL's, Impaired Self-Care Skills, Restricted Funct UE ROM OT Treatment, Training and Edu: Yes OT Problems Pt s/p cervical surgery with decreased strength and coordination impacting ability to perform functional tasks. Pt to benefit from skilled OT intervention for ADL training, transfers, strengthening, coordination, adaptive equipment training, and home safety education to increase level of independence and allow safe discharge home. Plan of Care: ADL Retraining, Functional Mobility, Group Exercise/Act as Ind, UE Funct Exercise/Act, UE Neuromus Re-Ed/Coord Treatment Duration: Nov 30, 2018 Frequency: At least 5 of 7 days/Wk (IRF) Estimated Hrs Per Day: 1.[address] IPOC Speech Therapy Treatment Plan: Discontinue ST Treatment Duration: Nov 09, 2018 Frequency: 1 time per week Estimated Hrs Per Day: .25 hour per day Lime Sludge Mixer/Case Mgmt Lime Sludge Mixer/Case Managemen: Discharge Planning Dietitian/Neon Sign Erector Dietitian/Neon Sign Erector to monitor nutritional status and make changes and/or recommendations as needed and work with speech pathology on dietary upgrades as the occur. Physician IPOC Medical Issues being managed closely and that require the 24 hour availability of a physician: Spine injury will require close monitoring for any neuro deficits and close mon itoring of asthma for any acute bronchospasm Medical Issues: Bowel/Bladder Function, DVT Prophylaxis, Falls Precautions, Fluid/Electrolyte/Nutrition Balance, Pain Management Brief Synthesis of Preadmission Screen, Post-Admission Evaluation, and Therapy Evaluations: PT will focus on ambulation with fall risk prevention OT will help patient regain function of arms with use of assistive devices to regain independent ADL's Medical Prognosis: Good Anticipated Length of Stay: 10 days MAYRA TORREZ DO Nov 10, 2018 12:57
--- NOTE | 2018-11-10 15:28 | Physical Therapy Daily Note ---
PT Daily Note-Current Subjective Pt agreeable to PT. No complaints this afternoon. Mental Status Patient Orientation: Person, Place, Time, Situation Transfers Therapy Code Descriptions/Definitions Functional [place] Measure: 0=Not Assessed/NA 4=Minimal Assistance 1=Total Assistance 5=Supervision or Setup 2=Maximal Assistance 6=Modified [place] 3=Moderate Assistance 7=Complete [place] Therapy Quality Codes: 6 Independent with activity with or without an assistive device 5 Patient requires set up or clean up by helper. Patient completes activity by themselves 4 Supervision or touching assist (CGA). [place] provide cues , steadying assist 3 The helper provides less than half the effort to complete the activity 2 The helper provides more than half the effort to complete the activity 1 Dependent. The helper does all the effort to complete an activity 7 Patient refused to complete or attempt activity 9 The patient did not perform the activity before the current illness or injury 88 Not attempted due to Medical conditions or safety concerns Sit to stand x multiple attempts with min-CGA with skilled cues for sequencing andhand placment. Gait Training Does the Patient Walk?: Yes Gait (FIM): 2 Distance (FIM): 2=789-57 ft Distance: 125 ft x 2 Gait Assistive Device: FWW Min - CGA with skilled cues for upright posture and increased step length/foot clearance. Exercises NuStep Minutes: 12 Treatments Nu step performed to improve LE strength and hip/knee ROM; pt's gait was impr efren after riding the Nu step showing improved step length and foot clearance. Assessment Current Status: Good Progress Sit to stand transfers improved with repetition and his gait pattern improved during treatment session. PT Short Term Goals Short Term Goals Time Frame: Nov 16, 2018 Gait (FIM): 4 Gait Distance Comment: 200' Gait Level of Assist: 4 Gait Assistive Device: FWW PT Credit And Collection Manager Goals Credit And Collection Manager Goals PT Correction Goals Time Frame: Nov 30, 2018 Transfers (B,C,W/C) (FIM): 5 Sit to Lying (QC): 6 Lying-Sitting on Side/Bed(QC): 6 Sit to Stand (QC): 4 Rollin Roll Left to Right (QC): 6 Chair/Ulv-ml-Asyhx Xfer(QC): 4 Car Transfer (QC): 4 Gait (FIM): 5 Distance: 300' Walk 10 feet (QC): 4 Walk 10ft-Uneven Surface(QC): 4 Walk 50ft with 2 Turns (QC): 4 Walk 150 ft (QC): 4 Gait Level of Assist: 5 Gait Assistive Device: FWW Stairs (FIM): 2 # of Steps: 4 1 Step (curb) (QC): 4 4 Steps (QC): 4 Stairs Level Of Assist: 5 PT Plan Problem List Problem List: Activity Tolerance, Functional Strength, Safety, Balance, Gait, Transfer, Bed Mobility Treatment/Plan Treatment Plan: Continue Plan of Care Treatment Plan: Bed Mobility, Education, Functional Activity Mann, Functional Strength, Group Therapy, Gait, Safety, Therapeutic Exercise, Transfers Treatment Duration: Nov 30, 2018 Frequency: At least 5 of 7 days/Wk (IRF) Estimated Hrs Per Day: 1.5 hours per day Patient and/or Family Agrees t: Yes Safety Risks/Education Patient Education: Gait Training Teaching Recipient: Patient Teaching Methods: Demonstration, Discussion Response to Teaching: Return Demonstration, Reinforcement Needed Time/GCodes Time In: 1330 Time Out: 1400 Total Billed Treatment Time: 30 Total Billed Treatment visit GT 18 EX 12 TIFFANIE VIERA PT Nov 10, 2018 15:28
--- NOTE | 2018-11-10 15:30 | Occupational Ther Daily Note ---
OT Current Status-Daily Note Subjective Pt. reports that he is unable to raise his arms very high in the air. Appearance Pt. up in chair. Agrees to work with OT. Mental Status/Objective Patient Orientation: Person, Place, Time, Situation Therapy Code Descriptions/Definitions Functional [place] Measure: 0=Not Assessed/NA 4=Minimal Assistance 1=Total Assistance 5=Supervision or Setup 2=Maximal Assistance 6=Modified [place] 3=Moderate Assistance 7=Complete [place] ADL-Treatment Therapy Code Descriptions/Definitions Functional [place] Measure: 0=Not Assessed/NA 4=Minimal Assistance 1=Total Assistance 5=Supervision or Setup 2=Maximal Assistance 6=Modified [place] 3=Moderate Assistance 7=Complete [place] Therapy Quality Codes: 6 Independent with activity with or without an assistive device 5 Patient requires set up or clean up by helper. Patient completes activity by themselves 4 Supervision or touching assist (CGA). [place] provide cues , steadying assist 3 The helper provides less than half the effort to complete the activity 2 The helper provides more than half the effort to complete the activity 1 Dependent. The helper does all the effort to complete an activity 7 Patient refused to complete or attempt activity 9 The patient did not perform the activity before the current illness or in jury 88 Not attempted due to Medical conditions or safety concerns Eating (FIM): 3 Eating (QC): 3 Toileting (FIM): 3 Toileting Hygiene (QC): 3 Transfers (B, C, W/C) (FIM): 4 Toilet/Commode Transfer (FIM): 4 Toilet Transfer (QC): 4 Other Treatment Pt. up in chair. Reports that he is dressed for the day and declines a shower at this time. OT provides gentle PROM to bilateral shoulders within available range, and within comfort levels. Provided gentle pressure to biceps and wrist extensors, as they were tight. Pt. reports that this "feels good." Able to achieve approximately 100 degrees in left shoulder in flexion, and 90 degrees in right shoulder in flexion. Provided gentle stretch to bilateral pectorals. Pt. completed AROM to bilateral elbows, wrists, and fingers within available range. After exercises and stretching, pt. practiced different methods to feed self, including built up grasp, swiveled spoon, plate guard, and using right hand to assist left hand to mouth. With effort and increased time, pt. is able to bring spoon to mouth, as well as dry food such as a cookie, to feed self. This is difficult and he is unable to maintain his hand at that level for long. However, this seemed to improve his confidence with eating. Pt. is encouraged to use right hand to stabilize cup or food item, to assist left hand. Pt. ambulated twice to bathroom to toilet. Utilized walker and required min assist. Transferred back to chair with all needs met. Education OT Patient Education: Correct positioning, Exercise program, Modified ADL techniques, Progress toward Goal/Update tx plan, Purpose of tx/functional activities, Reviewed precautions, Rehab process, Transfer techniques, Use of adapted equipment Teaching Recipient: Patient Teaching Methods: Demonstration, Discussion Response to Teaching: Verbalize Understanding, Return Demonstration OT Short Term Goals Short Term Goals Time Frame: Nov 16, 2018 Eating(FIM): 3 Grooming(FIM): 3 Upper Body Dressing(FIM): 3 Lower Body Dressing(FIM): 3 Toilet/Commode Transfer(FIM): 4 (CGA) Additional Short Term Goals: 1-Demonstrate ADL Tasks, 2-Verbalize Understanding, 3-ImproveStrength/Mann 1=Demonstrate adherence to instructed precautions during ADL tasks. 2=Patient will verbalize/demonstrate understanding of assistive devices/modifications for ADL. 3=Patient will improve strength/tolerance for activity to enable patient to perform ADL's. OT Shop Teacher Goals Shop Teacher Goals Time Frame: Nov 30, 2018 Eating (FIM): 5 Eating (QC): 5 Groomin Oral Hygiene (QC): 5 Bathing(FIM): 5 Shower/Bathe Self (QC): 4 Upper Body Dressing(FIM): 5 Upper Body Dressing (QC): 5 Lower Body Dressing(FIM): 5 Lower Body Dressing (QC): 4 On/Off Footwear (QC): 5 Toileting(FIM): 5 Toileting Hygiene (QC): 5 Toilet/Commode Transfer(FIM): 5 Toilet/Commode Transfer (QC): 5 Shower Transfer(FIM): 5 Additional Goals: 1-Demonstrate ADL Tasks, 2-Verbalize Understanding, 3- ImproveStrength/Mann 1=Demonstrate adherence to instructed precautions during ADL tasks. 2=Patient will verbalize/demonstrate understanding of assistive devices/modifications for ADL. 3=Patient will improve strength/tolerance for activity to enable patient to perform ADL's. OT Education/Plan Problem List/Assessment Assessment: Decreased Activ Tolerance, Decreased UE Strength, Dependent Transfers, Impaired Coordination, Impaired Funct Balance, Impaired I ADL's, Impaired Self-Care Skills, Restricted Funct UE ROM Pt s/p cervical surgery with decreased strength and coordination impacting ability to perform functional tasks. Pt to benefit from skilled OT intervention for ADL training, transfers, strengthening, coordination, adaptive equipment training, and home safety education to increase level of independence and allow safe discharge home. Discharge Recommendations Plan/Recommendations: Continue POC Therapy Discharge Recommendati: Post Acute OT Treatment Plan/Plan of Care Treatment,Training & Education: Yes Patient would benefit from OT for education, treatment and training to promote independence in ADL's, mobility, safety and/or upper extremity function for ADL's. Plan of Care: ADL Retraining, Functional Mobility, Group Exercise/Act as Ind, UE Funct Exercise/Act, UE Neuromus Re-Ed/Coord Treatment Duration: Nov 30, 2018 Frequency: At least 5 of 7 days/Wk (IRF) Estimated Hrs Per Day: 1.5 hours per day Agreement: Yes Rehab Potential: Fair Time/GCodes Start Time: 09:45 Stop Time: 11:15 Total Time Billed (hr/min): 90 Billed Treatment Time 1, ADL x 30minutes, NM x 30minutes, Ex x 30minutes NATALIE US OT Nov 10, 2018 15:30
[2018-11-10 16:22] VITALS: BP 130/75
--- NOTE | 2018-11-10 19:08 | NUR ---
bedside report received from NITIN TAVARES, assume care of pt
--- NOTE | 2018-11-10 20:37 | NUR ---
pt refused miralax & Senokot, c/o pain level 5/10 on numeric scale, Lortab 5 1 tab po given
--- NOTE | 2018-11-10 20:40 | NUR ---
assessments & interventions completed, see assessments & interventions, up in the chair, up to bathroom with 1 person assist & walker
--- NOTE | 2018-11-10 21:15 | NUR ---
rates pain at 2/10 on numeric scale
[2018-11-11] MEDS: HYDROcodone/APAP 5 MG/325 MG (LORTAB) TAB PO PRN ×5 (00:37→17:04)
--- NOTE | 2018-11-11 00:37 | NUR ---
c/o pain level 5/10 on numeric scale, Lortab 5 1 tab po given
--- NOTE | 2018-11-11 01:22 | NUR ---
resting quietly in the chair, pain level 0/10 on flacc scale
--- NOTE | 2018-11-11 04:23 | NUR ---
c/o pain level 6/10, Lortab 5 1 tab po given
--- NOTE | 2018-11-11 04:55 | NUR ---
resting quietly in the chair, pain level 0/10 on flacc scale
[2018-11-11 05:32] VITALS: BP 136/79
--- NOTE | 2018-11-11 07:14 | NUR ---
bedside report given to INGRIS TAVARES
--- NOTE | 2018-11-11 07:33 | NUR ---
c/o pain level 4/10 on numeric scale, Lortab 5 1 tab po given
[2018-11-11] MEDS: RT-ADVAIR HFA 115/21 MCG PER PUFF IH SCH ×2 (07:53→19:23)
--- NOTE | 2018-11-11 08:00 | NUR ---
STATES HAS FELT SHAKY SINCE FIRST DAY OF THERAPY. COMPLAIN POOR APPETITE BUT FAMILY IS BRINGING IN FOOD AND THAT HELPS. STATES URINARY INCONTINENCY IS NEW FOR HIM. LEGS ARE SWOLLEN SO WILL PUT BAMBI HOSE ON.
--- NOTE | 2018-11-11 08:00 | NUR ---
AFEBRILE. BP DOES DIFFERENTIATE BETWEEN AUTOMATIC AND MANUAL. SEE VS INTERVENTION. LEFT LEG STRONGER THAN ARM. Addendum: 11/11/18 at 1429 by ADIA DONOVAN RN WRONG PATIENT
--- NOTE | 2018-11-11 08:57 | Physical Therapy Daily Note ---
PT Daily Note-Current Subjective Patient in recliner pre tx, agrees to PT, has no complaints of pain. Appearance Patient in recliner post tx with nurse call, phone, tray, all needs met. Mental Status Patient Orientation: Normal For Age cervical collar Transfers Therapy Code Descriptions/Definitions Functional [place] Measure: 0=Not Assessed/NA 4=Minimal Assistance 1=Total Assistance 5=Supervision or Setup 2=Maximal Assistance 6=Modified [place] 3=Moderate Assistance 7=Complete [place] Therapy Quality Codes: 6 Independent with activity with or without an assistive device 5 Patient requires set up or clean up by helper. Patient completes activity by themselves 4 Supervision or touching assist (CGA). [place] provide cues , steadying assist 3 The helper provides less than half the effort to complete the activity 2 The helper provides more than half the effort to complete the activity 1 Dependent. The helper does all the effort to complete an activity 7 Patient refused to complete or attempt activity 9 The patient did not perform the activity before the current illness or injury 88 Not attempted due to Medical conditions or safety concerns Transfers (B, C, W/C) (FIM): 4 Sit to/from Stand: 4 Bed to/from Chair: 4 min assist sit to stand from low surfaces, cues for hand placement Gait Training Gait (FIM): 2 Distance: 120'x2 Gait Level of Assist: 4 Gait Persons Needed: 1 Gait Assistive Device: FWW slow ambulation, shaky, more slumped posture the longer he walks, poor foot clearance Exercises Standing: Hip Abduction, Heel/toe raises, Marching, Mini squats sideways ambulation in the parallel bars 8'x4 NuStep Minutes: 15 NuStep Workload: 4 Treatments transfers, ambulation, LE exercise Assessment Current Status: Fair Progress less neck pain PT Short Term Goals Short Term Goals Time Frame: Nov 16, 2018 Gait (FIM): 4 Gait Distance Comment: 200' Gait Level of Assist: 4 Gait Assistive Device: FWW PT Penitentiary Goals Cook Cashier Food Prep Goals PT Penitentiary Goals Time Frame: Nov 30, 2018 Transfers (B,C,W/C) (FIM): 5 Sit to Lying (QC): 6 Lying-Sitting on Side/Bed(QC): 6 Sit to Stand (QC): 4 Rollin Roll Left to Right (QC): 6 Chair/Zlg-rd-Uqyld Xfer(QC): 4 Car Transfer (QC): 4 Gait (FIM): 5 Distance: 300' Walk 10 feet (QC): 4 Walk 10ft-Uneven Surface(QC): 4 Walk 50ft with 2 Turns (QC): 4 Walk 150 ft (QC): 4 Gait Level of Assist: 5 Gait Assistive Device: FWW Stairs (FIM): 2 # of Steps: 4 1 Step (curb) (QC): 4 4 Steps (QC): 4 Stairs Level Of Assist: 5 PT Plan Problem List Problem List: Activity Tolerance, Functional Strength, Safety, Balance, Gait, Transfer, Bed Mobility, ROM Treatment/Plan Treatment Plan: Continue Plan of Care Treatment Plan: Bed Mobility, Education, Functional Activity Mann, Functional Strength, Group Therapy, Gait, Safety, Therapeutic Exercise, Transfers Treatment Duration: Nov 30, 2018 Frequency: At least 5 of 7 days/Wk (IRF) Estimated Hrs Per Day: 1.5 hours per day Patient and/or Family Agrees t: Yes Safety Risks/Education Patient Education: Gait Training, Transfer Techniques, Correct Positioning, Safety Issues Teaching Recipient: Patient Teaching Methods: Demonstration, Discussion Response to Teaching: Reinforcement Needed Time/GCodes Time In: 0800 Time Out: 0900 Total Billed Treatment Time: 60 Total Billed Treatment 1 visit GT 30' EX 30' OSORIO LOCKHART PT Nov 11, 2018 08:57
[2018-11-11] MEDS: TAMSULOSIN 0.4 MG (FLOMAX) CAP PO SCH ×2 (08:58→20:57)
[2018-11-11] MEDS: SENNA W/DOCUSATE (SENOKOT S) TABLET PO SCH ×2 (08:58→20:56)
[2018-11-11] MEDS: POLYETHYLENE GLYCOL 17 GM (MIRALAX) PACK PO SCH ×2 (09:00→20:57)
--- NOTE | 2018-11-11 09:00 | NUR ---
DR. TORREZ INFORMED OF PATIENT COMPLAINING THAT URINE SMELLS LIKE A BARN AND URINARY FREQUENCY. WILL OBTAIN UA. Addendum: 11/11/18 at 1429 by ADIA DONOVAN RN WRONG PATIENT
--- NOTE | 2018-11-11 10:37 | CONSULTATION REPORT ---
DATE OF SERVICE: 11/11/2018 ATTENDING PHYSICIAN: Dr. Mercado. SUMMARY: An 78-year-old white man recovering from a cervical spine surgery by Dr. Starr on the th of this month, who has been having urgency incontinence, probably secondary to overactive bladder. He does have history of that at home. He was also apparently has some BPH and prostatism. His Dr. Pandey, in [place], [place] and he has him on Flomax 0.4 b.i.d. He has tried oxybutynin 5 mg t.i.d., question help him, but caused dry mouth and discontinued it. His H and P was reviewed. IMPRESSION: 1. BPH with prostatism. 2. Wet overactive bladder. PLAN: We will have the nurse to check a postvoid residual bladder scan and call me and decide the next step if the hospital carry [place] that will be the least medication to cause dry mouth and I do not think they have Myrbetriq, which also was expensive. The plan was fully explained to the patient. Job ID: [id number] DocumentID: [id number] Dictated Date: 11/11/2018 09:50:40 Supervisor Evaporator Date: 11/11/2018 10:37:12 Dictated By: REHANA CASON MD
--- NOTE | 2018-11-11 11:20 | NUR ---
DR. CASON NOTIFIED PATIENT FELT VOIDED WELL PER TOILET AND THEN BLADDER SCANNER SHOWED 208 CC.
--- NOTE | 2018-11-11 11:34 | Physical Therapy Daily Note ---
PT Daily Note-Current Subjective Patient in recliner pre tx, agrees to PT, has no complaints of pain at rest, needs to use the restroom. Needs assist with pants down and up. Appearance Patient in recliner post tx with nurse call, phone, tray, all needs met. Mental Status Patient Orientation: Normal For Age Transfers Therapy Code Descriptions/Definitions Functional [place] Measure: 0=Not Assessed/NA 4=Minimal Assistance 1=Total Assistance 5=Supervision or Setup 2=Maximal Assistance 6=Modified [place] 3=Moderate Assistance 7=Complete [place] Therapy Quality Codes: 6 Independent with activity with or without an assistive device 5 Patient requires set up or clean up by helper. Patient completes activity by themselves 4 Supervision or touching assist (CGA). [place] provide cues , steadying assist 3 The helper provides less than half the effort to complete the activity 2 The helper provides more than half the effort to complete the activity 1 Dependent. The helper does all the effort to complete an activity 7 Patient refused to complete or attempt activity 9 The patient did not perform the activity before the current illness or i njury 88 Not attempted due to Medical conditions or safety concerns Transfers (B, C, W/C) (FIM): 4 Sit to/from Stand: 4 Bed to/from Chair: 4 Min assist for sit to stand, CGA for transfers, occasional cues for hand placement Gait Training Gait (FIM): 2 Distance: 120'x2 Gait Level of Assist: 4 Gait Persons Needed: 1 Gait Assistive Device: FWW Patient had one LOB that required therapist assist, otherwise was CGA. Patient tends to slump more the longer he ambulates due to weakness. Exercises Seated Therapy Exercises: Ankle pumps, Hip flexion, Hip abd/add (with pillow and RTB) Seated Reps: 20 LAQ alternating for 5 min Treatments toileting, ambulation, LE exercise Assessment Current Status: Fair Progress improving LE strength PT Short Term Goals Short Term Goals Time Frame: Nov 16, 2018 Gait (FIM): 4 Gait Distance Comment: 200' Gait Level of Assist: 4 Gait Assistive Device: FWW PT Drier Helper Goals Drier Helper Goals PT Mcfp Goals Time Frame: Nov 30, 2018 Transfers (B,C,W/C) (FIM): 5 Sit to Lying (QC): 6 Lying-Sitting on Side/Bed(QC): 6 Sit to Stand (QC): 4 Rollin Roll Left to Right (QC): 6 Chair/Mne-pt-Lvrxc Xfer(QC): 4 Car Transfer (QC): 4 Gait (FIM): 5 Distance: 300' Walk 10 feet (QC): 4 Walk 10ft-Uneven Surface(QC): 4 Walk 50ft with 2 Turns (QC): 4 Walk 150 ft (QC): 4 Gait Level of Assist: 5 Gait Assistive Device: FWW Stairs (FIM): 2 # of Steps: 4 1 Step (curb) (QC): 4 4 Steps (QC): 4 Stairs Level Of Assist: 5 PT Plan Problem List Problem List: Activity Tolerance, Functional Strength, Safety, Balance, Gait, Transfer, Bed Mobility Treatment/Plan Treatment Plan: Continue Plan of Care Treatment Plan: Bed Mobility, Education, Functional Activity Mann, Functional Strength, Group Therapy, Gait, Safety, Therapeutic Exercise, Transfers Treatment Duration: Nov 30, 2018 Frequency: At least 5 of 7 days/Wk (IRF) Estimated Hrs Per Day: 1.5 hours per day Patient and/or Family Agrees t: Yes Safety Risks/Education Patient Education: Gait Training, Transfer Techniques, Correct Positioning, Safety Issues Teaching Recipient: Patient Teaching Methods: Demonstration, Discussion Response to Teaching: Reinforcement Needed Time/GCodes Time In: 1100 Time Out: 1130 Total Billed Treatment Time: 30 Total Billed Treatment 1 visit GT 15' EX 15' OSORIO LOCKHART PT Nov 11, 2018 11:34
--- NOTE | 2018-11-11 11:45 | Occupational Ther Daily Note ---
OT Current Status-Daily Note Subjective Pt sitting in chair, agrees to therapy. Pt reports pain in neck, but does not rate. Mental Status/Objective Therapy Code Descriptions/Definitions Functional [place] Measure: 0=Not Assessed/NA 4=Minimal Assistance 1=Total Assistance 5=Supervision or Setup 2=Maximal Assistance 6=Modified [place] 3=Moderate Assistance 7=Complete [place] ADL-Treatment Pt declined shower this morning, but agrees to sponge bath. Pt required max assist to doff shirt. Pt able to hold washcloth in left hand and wash chest and abdomen; requires assist to wash bilateral UE and face. Pt attempted to wash upper legs and lacie area, but requires assist for thorough hygiene. Pt instructed in use of long handled sponge for lower body bathing. Pt has difficulty maintaining accounting associate on sponge and requires assist to complete task. Pt able to thread UE into sleeves, but requires assist to pull up over arms and head and pull down in back. Assist to thread bilateral LE into Depends and pants. Sit to stand with min assist. Pt attempts to pull pants up over hips, but is unable to grasp and requires assist for pant hike. After socks placed on sock aid, pt able to don with minimal assistance and increased time. Pt held comb in left hand and with elbow supported was able to partially comb hair. Pt fatigues quickly with activity and requires rest breaks throughout treatment. Increased time for ADL tasks. Therapy Code Descriptions/Definitions Functional [place] Measure: 0=Not Assessed/NA 4=Minimal Assistance 1=Total Assistance 5=Supervision or Setup 2=Maximal Assistance 6=Modified [place] 3=Moderate Assistance 7=Complete [place] Therapy Quality Codes: 6 Independent with activity with or without an assistive device 5 Patient requires set up or clean up by helper. Patient completes activity by themselves 4 Supervision or touching assist (CGA). [place] provide cues , steadying assist 3 The helper provides less than half the effort to complete the activity 2 The helper provides more than half the effort to complete the activity 1 Dependent. The helper does all the effort to complete an activity 7 Patient refused to complete or attempt activity 9 The patient did not perform the activity before the current illness or injury 88 Not attempted due to Medical conditions or safety concerns Grooming (FIM): 3 Bathing (FIM): 1 Upper Body (FIM): 2 Lower Body Dressing (FIM): 2 Other Treatment Gentle PROM completed to bilateral shoulders within available range. Pt states it makes him feel better and does not have any pain. Pt completed AROM bilateral elbow, wrist, forearm and fingers within available range. Pt moves slowly and takes frequent rest breaks. Bilateral hand accounting associate exercises x10 reps with moderate resistance therapy foam. Pt sitting in chair with needs met after session. OT Short Term Goals Short Term Goals Time Frame: Nov 16, 2018 Eating(FIM): 3 Grooming(FIM): 3 Upper Body Dressing(FIM): 3 Lower Body Dressing(FIM): 3 Toilet/Commode Transfer(FIM): 4 (CGA) Additional Short Term Goals: 1-Demonstrate ADL Tasks, 2-Verbalize Understanding, 3-ImproveStrength/Mann 1=Demonstrate adherence to instructed precautions during ADL tasks. 2=Patient will verbalize/demonstrate understanding of assistive devices/modifications for ADL. 3=Patient will improve strength/tolerance for activity to enable patient to perform ADL's. OT Earth Observations Chief Scientist Goals Earth Observations Chief Scientist Goals Time Frame: Nov 30, 2018 Eating (FIM): 5 Eating (QC): 5 Groomin Oral Hygiene (QC): 5 Bathing(FIM): 5 Shower/Bathe Self (QC): 4 Upper Body Dressing(FIM): 5 Upper Body Dressing (QC): 5 Lower Body Dressing(FIM): 5 Lower Body Dressing (QC): 4 On/Off Footwear (QC): 5 Toileting(FIM): 5 Toileting Hygiene (QC): 5 Toilet/Commode Transfer(FIM): 5 Toilet/Commode Transfer (QC): 5 Shower Transfer(FIM): 5 Additional Goals: 1-Demonstrate ADL Tasks, 2-Verbalize Understanding, 3- ImproveStrength/Mann 1=Demonstrate adherence to instructed precautions during ADL tasks. 2=Patient will verbalize/demonstrate understanding of assistive devices/modifications for ADL. 3=Patient will improve strength/tolerance for activity to enable patient to perform ADL's. OT Education/Plan Discharge Recommendations Plan/Recommendations: Continue POC Treatment Plan/Plan of Care Patient would benefit from OT for education, treatment and training to promote independence in ADL's, mobility, safety and/or upper extremity function for ADL's. Plan of Care: ADL Retraining, Functional Mobility, Group Exercise/Act as Ind, UE Funct Exercise/Act, UE Neuromus Re-Ed/Coord Treatment Duration: Nov 30, 2018 Frequency: At least 5 of 7 days/Wk (IRF) Estimated Hrs Per Day: 1.5 hours per day Agreement: Yes Rehab Potential: Fair Time/GCodes Start Time: 09:30 Stop Time: 11:00 Total Time Billed (hr/min): 90 Billed Treatment Time 1 visit, ADLx4(60minutes), EXx2(30minutes) RACHELLE SUAREZ OT Nov 11, 2018 11:45
--- NOTE | 2018-11-11 12:10 | PM&R Progress Note ---
Subjective HPI/CC On Admission Date Seen by Provider: Nov 11, 2018 Time Seen by Provider: 09:00 Chief complaint: Cervical spine stenosis status post predictable injury with upper extremity weakness History of present illness: This is an 78-year-old white male of Dr. Velarde in [facility] who is known to me from cervical spine surgery by Dr. Starr on 11/02/2018 at [facility] who is had a long wait for insurance approval from [facility] to be admitted to inpatient rehab due to severe cervical spine muscle weakness of the arms and legs. He had such severe stenosis that he has residual neurologic deficit to the upper extremities more than lower extremities. His bowels or not moving well but they did about 4 days ago he has not had any lung problems or prostate problems during his hospital course and [facility]. He thinks that he gets too drowsy with taking 2 of the hydrocodone pain pills in addition for the muscle relaxant so will decrease the dose on both but keep him comfortable nonetheless. His prior level of functioning was independent without the use of assistive devices and he will return home with his and supportive family. Subjective/Events-last exam Continues the shakiness Incontinence is new and is trying to work with the diapers he uses Poor appetite so encouraged him to do more with that Arms are getting stronger Lower extremity edema noted so we'll initiate BAMBI mathew Conferred with RN Checked meds and labs Reviewed therapy notes Review of Systems General: Fatigue Genitourinary: Incontinence Neurological: Weakness, Numbness, Incoordination Objective Exam Vital Signs Vital Signs Date Time Temp Pulse Resp B/P (MAP) Pulse Ox O2 Delivery O2 Flow Rate FiO2 11/12/18 06:00 36.4 80 20 150/74 (99) 93 Room Air Capillary Refill : General Appearance: No Apparent Distress, WD/WN, Chronically ill, Thin HEENT: PERRL/EOMI, Normal ENT Inspection, Pharynx Normal, Moist Mucous Membranes Neck: Full Range of Motion, Normal Inspection, Non Tender, Supple Respiratory: Chest Non Tender, Lungs Clear, Normal Breath Sounds, No Accessory Muscle Use, No Respiratory Distress Cardiovascular: Regular Rate, Rhythm, No Edema, No Gallop, No JVD, No Murmur Gastrointestinal: No Organomegaly, No Pulsatile Mass, Non Tender, Soft, Abnormal Bowel Sounds, Distended Back: Normal Inspection, No CVA Tenderness, No Vertebral Tenderness Extremity: Normal Capillary Refill, Normal Inspection, Normal Range of Motion, Non Tender, No Calf Tenderness, No Pedal Edema Neurologic/Psychiatric: Alert, Oriented x3, Normal Mood/Affect, 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 FIM Transfers Therapy Code Descriptions/Definitions Functional [place] Measure: 0=Not Assessed/NA 4=Minimal Assistance 1=Total Assistance 5=Supervision or Setup 2=Maximal Assistance 6=Modified [place] 3=Moderate Assistance 7=Complete [place] Therapy Quality Codes: 6 Independent with activity with or without an assistive device 5 Patient requires set up or clean up by helper. Patient completes activity by themselves 4 Supervision or touching assist (CGA). [place] provide cues , steadying assist 3 The helper provides less than half the effort to complete the activity 2 The helper provides more than half the effort to complete the activity 1 Dependent. The helper does all the effort to complete an activity 7 Patient refused to complete or attempt activity 9 The patient did not perform the activity before the current illness or injury 88 Not attempted due to Medical conditions or safety concerns Transfers (B, C, W/C) (FIM): 4 Scootin Rollin Roll Left to Right (QC): 4 Supine to/from Sit: 4 Sit to/from Stand: 4 Sit to Lying (QC): 3 Sit to Stand (QC): 3 Chair/Tcg-oj-Zabim Xfer(QC): 4 Bed to/from Chair: 4 Car Transfer (QC): 4 Gait Training Does the Patient Walk?: Yes Gait (FIM): 2 Distance (FIM): 0=708-72 ft Distance: 120'x2 Walk 10 feet (QC): 4 Walk 50 ft with 2 Turns(QC): 4 Walk 150 ft (QC): 4 Walking 10ft/uneven surface-QC: 4 Gait Level of Assist: 4 Gait Persons Needed: 1 Gait Assistive Device: FWW Wheelchair Training Does the Pt Use a Wheelchair?: No Stair Training Stairs (FIM): 1 #of Steps: 1 1 Step (curb) (QC): 3 Level of Assist: 4 Mental Status/Objective Comprehension: 7 Expression: 7 Social Interaction: 7 Problem Solvin Memory: 7 ADL-Treatment Feedin Eating (QC): 3 Groomin Bathin Upper Extremity Dressin Upper Body Dressing (QC): 1 Lower Extremity Dressin Toiletin Toileting Hygiene (QC): 3 Toilet/Commode Transfer: 4 Toilet Transfer (QC): 4 Assessment/Plan Assessment and Plan Assess & Plan/Chief Complaint Assessment: Cervical spine injury Extremity weakness Constipation now resolved Asthma BPH Shakiness Urinary incontinence Plan: Monitor lungs BM regimen to be maintained Urology consultation Lower extremity edema management with BAMBI mathew (1) Cervical spinal stenosis Status: Acute (2) Constipation Status: Acute Qualifiers: Constipation type: slow transit constipation Qualified Codes: K59.01 - Slow transit constipation (3) Asthma Status: Chronic Qualifiers: Asthma severity: moderate Asthma persistence: unspecified Asthma complication type: unspecified Qualified Codes: J45.909 - Unspecified asthma, uncomplicated (4) Bilateral arm weakness Status: Acute (5) Injury of cervical spine Status: Acute Qualifiers: Encounter type: subsequent encounter Qualified Codes: S14.109D - Unspecified injury at unspecified level of cervical spinal cord, subsequent encounter (6) BPH (benign prostatic hyperplasia) Status: Chronic Qualifiers: Lower urinary tract symptom presence: symptoms absent Qualified Codes: N40.0 - Benign prostatic hyperplasia without lower urinary tract symptoms (7) Risk for falls Status: Acute MAYRA TORREZ DO Nov 11, 2018 12:10
--- NOTE | 2018-11-11 13:45 | NUR ---
CHECKED AGAIN PER DR. CASON'S REQUEST AND AFTER VOIDING 100 CC - BLADDER SCAN SHOWED [address] CASON NOTIFIED.
[2018-11-11 16:42] VITALS: BP 165/72
--- NOTE | 2018-11-11 17:00 | NUR ---
NOW STATES DID HAVE SOME INCONTINENCY AT HOME, BUT HAS NOT HAD ANY TODAY.
--- NOTE | 2018-11-11 18:00 | NUR ---
IS PLEASED WITH HIS PROGRESS TODAY IN BEING ABLE TO FEED SELF ONCE FOOD IS PUT ON FORK FOR HIM. A FAIRLY GOOD DAY.
[2018-11-11] MEDS: BACLOFEN 10 MG (LIORESAL) TAB PO PRN (20:56)
[2018-11-12] MEDS: HYDROcodone/APAP 5 MG/325 MG (LORTAB) TAB PO PRN ×5 (00:45→23:32)
[2018-11-12 06:00] VITALS: BP 150/74
--- NOTE | 2018-11-12 07:47 | Physical Therapy Daily Note ---
PT Daily Note-Current Subjective Pt agreeable to PT session, requested pain meds from nsg. States he feels he needs more work on his shoulders due to soreness. Reports he still is not able to raise arms very high, is able to bend elbows. States his R side is weaker in general than L side, with decreased coordination Pain Numeric Pain Scale: 5-Moderate Pain Location Body Site: Neck Appearance Pt sitting up in recliner awake and alert with FISH HATCHERY MAN present upon arrival. At end of session, pt sitting up in recliner with LE's elevated, pillows supporting UE's, call light, phone and bedside table within reach Mental Status Patient Orientation: Confused, Place, Time, Eyes Open, Situation Attachments: Other-See Comments (hard c-collar) Transfers Therapy Code Descriptions/Definitions Functional [place] Measure: 0=Not Assessed/NA 4=Minimal Assistance 1=Total Assistance 5=Supervision or Setup 2=Maximal Assistance 6=Modified [place] 3=Moderate Assistance 7=Complete [place] Therapy Quality Codes: 6 Independent with activity with or without an assistive device 5 Patient requires set up or clean up by helper. Patient completes activity by themselves 4 Supervision or touching assist (CGA). [place] provide cues , steadying assist 3 The helper provides less than half the effort to complete the activity 2 The helper provides more than half the effort to complete the activity 1 Dependent. The helper does all the effort to complete an activity 7 Patient refused to complete or attempt activity 9 The patient did not perform the activity before the current illness or injury 88 Not attempted due to Medical conditions or safety concerns Transfers (B, C, W/C) (FIM): 4 Sit to/from Stand: 4 (sit to stand requiring min A and skilled verb inst for hand, body and foot placement, and safety. Stand to sit CGA with skilled verb inst) Gait Training Does the Patient Walk?: Yes Gait (FIM): 4 Distance (FIM): 3=150 ft Distance: 150 x2 Gait Level of Assist: 4 (CGA provided for safety 2* unsteady gait) Gait Persons Needed: 1 Gait Assistive Device: FWW slow pace, NBOS, unsteady without LOB, shuffling but step through gait pattern 75% of gait distance Exercises Seated Therapy Exercises: Ankle pumps, Long arc quads, Chair press-ups, Hip flexion, Hip abd/add (with knees extended) Seated Reps: 20 (each LE) NuStep Minutes: 15 NuStep Workload: 5 (LE's only, seat 11) Treatments transfers, gait, safety, education, balance, strength, functional mobility, activity tolerance Assessment Current Status: Good Progress PT Short Term Goals Short Term Goals Time Frame: Nov 16, 2018 Gait (FIM): 4 Gait Distance Comment: 200' Gait Level of Assist: 4 Gait Assistive Device: FWW PT Alf Goals Alf Goals PT Abstract Manager Goals Time Frame: Nov 30, 2018 Transfers (B,C,W/C) (FIM): 5 Sit to Lying (QC): 6 Lying-Sitting on Side/Bed(QC): 6 Sit to Stand (QC): 4 Rollin Roll Left to Right (QC): 6 Chair/Gbk-my-Khesw Xfer(QC): 4 Car Transfer (QC): 4 Gait (FIM): 5 Distance: 300' Walk 10 feet (QC): 4 Walk 10ft-Uneven Surface(QC): 4 Walk 50ft with 2 Turns (QC): 4 Walk 150 ft (QC): 4 Gait Level of Assist: 5 Gait Assistive Device: FWW Stairs (FIM): 2 # of Steps: 4 1 Step (curb) (QC): 4 4 Steps (QC): 4 Stairs Level Of Assist: 5 PT Plan Treatment/Plan Treatment Plan: Continue Plan of Care Treatment Plan: Bed Mobility, Education, Functional Activity Mann, Functional Strength, Group Therapy, Gait, Safety, Therapeutic Exercise, Transfers Treatment Duration: Nov 30, 2018 Frequency: At least 5 of 7 days/Wk (IRF) Estimated Hrs Per Day: 1.5 hours per day Patient and/or Family Agrees t: Yes Safety Risks/Education Patient Education: Gait Training, Transfer Techniques, Safety Issues Teaching Recipient: Patient Teaching Methods: Demonstration, Discussion Response to Teaching: Verbalize Understanding, Return Demonstration Time/GCodes Time In: 740 Time Out: 830 Total Billed Treatment Time: 50 Total Billed Treatment 1 visit, GT x20 min, EX x30 min FRANCISCO GILLIS PTA Nov 12, 2018 07:47
[2018-11-12] MEDS: POLYETHYLENE GLYCOL 17 GM (MIRALAX) PACK PO SCH ×3 (08:16→20:20)
[2018-11-12] MEDS: SENNA W/DOCUSATE (SENOKOT S) TABLET PO SCH ×2 (08:16→20:20)
[2018-11-12] MEDS: TAMSULOSIN 0.4 MG (FLOMAX) CAP PO SCH ×2 (08:16→20:20)
[2018-11-12] MEDS: DOCUSATE SODIUM 100 MG (COLACE) CAP PO PRN (08:16)
--- NOTE | 2018-11-12 09:06 | PM&R Progress Note ---
Subjective HPI/CC On Admission Date Seen by Provider: Nov 12, 2018 Time Seen by Provider: 09:15 Chief complaint: Cervical spine stenosis status post predictable injury with upper extremity weakness History of present illness: This is an 78-year-old white male of Dr. Velarde in [facility] who is known to me from cervical spine surgery by Dr. Starr on 11/02/2018 at [facility] who is had a long wait for insurance approval from [facility] to be admitted to inpatient rehab due to severe cervical spine muscle weakness of the arms and legs. He had such severe stenosis that he has residual neurologic deficit to the upper extremities more than lower extremities. His bowels or not moving well but they did about 4 days ago he has not had any lung problems or prostate problems during his hospital course and [place] at [facility] In [facility]. He thinks that he gets too drowsy with taking 2 of the hydrocodone pain pills in addition for the muscle relaxant so will decrease the dose on both but keep him comfortable nonetheless. His prior level of functioning was independent without the use of assistive devices and he will return home with his and supportive family. Subjective/Events-last exam Incontinence is being managed and he wants to have a larger size of depends disposable underwear to help with that Urology consultation is appreciated and it appears that he is willing to use the Sanctura and I did speak with Dr. Payan Pain is 7/10 Lortab used with good results Only 14 mL post void residual on bladder scan so overflow incontinence is not a diagnosis Conferred with RN Checked meds and labs Reviewed therapy notes Review of Systems General: Fatigue Genitourinary: Incontinence Neurological: Weakness, Numbness, Incoordination Objective Exam Vital Signs Vital Signs Date Time Temp Pulse Resp B/P (MAP) Pulse Ox O2 Delivery O2 Flow Rate FiO2 11/12/18 06:00 36.4 80 20 150/74 (99) 93 Room Air Capillary Refill : General Appearance: No Apparent Distress, WD/WN, Chronically ill, Thin HEENT: PERRL/EOMI, Normal ENT Inspection, Pharynx Normal, Moist Mucous Membranes Neck: Full Range of Motion, Normal Inspection, Non Tender, Supple Respiratory: Chest Non Tender, Lungs Clear, Normal Breath Sounds, No Accessory Muscle Use, No Respiratory Distress Cardiovascular: Regular Rate, Rhythm, No Edema, No Gallop, No JVD, No Murmur Gastrointestinal: No Organomegaly, No Pulsatile Mass, Non Tender, Soft, Abnormal Bowel Sounds, Distended Back: Normal Inspection, No CVA Tenderness, No Vertebral Tenderness Extremity: Normal Capillary Refill, Normal Inspection, Normal Range of Motion, Non Tender, No Calf Tenderness, No Pedal Edema Neurologic/Psychiatric: Alert, Oriented x3, Normal 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 FIM Transfers Therapy Code Descriptions/Definitions Functional [place] Measure: 0=Not Assessed/NA 4=Minimal Assistance 1=Total Assistance 5=Supervision or Setup 2=Maximal Assistance 6=Modified [place] 3=Moderate Assistance 7=Complete [place] Therapy Quality Codes: 6 Independent with activity with or without an assistive device 5 Patient requires set up or clean up by helper. Patient completes activity by themselves 4 Supervision or touching assist (CGA). [place] provide cues , steadying assist 3 The helper provides less than half the effort to complete the activity 2 The helper provides more than half the effort to complete the activity 1 Dependent. The helper does all the effort to complete an activity 7 Patient refused to complete or attempt activity 9 The patient did not perform the activity before the current illness or injury 88 Not attempted due to Medical conditions or safety concerns Transfers (B, C, W/C) (FIM): 4 Scootin Rollin Roll Left to Right (QC): 4 Supine to/from Sit: 4 Sit to/from Stand: 4 Sit to Lying (QC): 3 Sit to Stand (QC): 3 Chair/Caf-at-Jmgvk Xfer(QC): 4 Bed to/from Chair: 4 Car Transfer (QC): 4 Gait Training Does the Patient Walk?: Yes Gait (FIM): 2 Distance (FIM): 8=240-76 ft Distance: 120'x2 Walk 10 feet (QC): 4 Walk 50 ft with 2 Turns(QC): 4 Walk 150 ft (QC): 4 Walking 10ft/uneven surface-QC: 4 Gait Level of Assist: 4 Gait Persons Needed: 1 Gait Assistive Device: FWW Wheelchair Training Does the Pt Use a Wheelchair?: No Stair Training Stairs (FIM): 1 #of Steps: 1 1 Step (curb) (QC): 3 Level of Assist: 4 Mental Status/Objective Comprehension: 7 Expression: 7 Social Interaction: 7 Problem Solvin Memory: 7 ADL-Treatment Feedin Eating (QC): 3 Groomin Bathin Upper Extremity Dressin Upper Body Dressing (QC): 1 Lower Extremity Dressin Toiletin Toileting Hygiene (QC): 3 Toilet/Commode Transfer: 4 Toilet Transfer (QC): 4 Assessment/Plan Assessment and Plan Assess & Plan/Chief Complaint Assessment: Cervical spine injury Extremity weakness Constipation Asthma BPH Urinary incontinence placing on Sanctura Plan: Monitor lungs BM regimen to be maintained Urology consultation is appreciated (1) Cervical spinal stenosis Status: Acute (2) Constipation Status: Acute Qualifiers: Constipation type: slow transit constipation Qualified Codes: K59.01 - Slow transit constipation (3) Asthma Status: Chronic Qualifiers: Asthma severity: moderate Asthma persistence: unspecified Asthma complication type: unspecified Qualified Codes: J45.909 - Unspecified asthma, uncomplicated (4) Bilateral arm weakness Status: Acute (5) Injury of cervical spine Status: Acute Qualifiers: Encounter type: subsequent encounter Qualified Codes: S14.109D - Unspecified injury at unspecified level of cervical spinal cord, subsequent encounter (6) BPH (benign prostatic hyperplasia) Status: Chronic Qualifiers: Lower urinary tract symptom presence: symptoms absent Qualified Codes: N40.0 - Benign prostatic hyperplasia without lower urinary tract symptoms (7) Risk for falls Status: Acute MAYRA TORREZ DO Nov 12, 2018 09:06
--- NOTE | 2018-11-12 09:29 | NUR ---
DR. CASON IN ROOM, TALKING W PT
--- NOTE | 2018-11-12 09:35 | Occupational Ther Daily Note ---
OT Current Status-Daily Note Subjective Pt alert, sitting in recliner. Pt agrees to therapy. Pt c/o pain, 08/31, reported to nrsg. Mental Status/Objective Patient Orientation: Person, Place, Time, Situation Therapy Code Descriptions/Definitions Functional [place] Measure: 0=Not Assessed/NA 4=Minimal Assistance 1=Total Assistance 5=Supervision or Setup 2=Maximal Assistance 6=Modified [place] 3=Moderate Assistance 7=Complete [place] ADL-Treatment Pt ambulated to bathroom and sat at sink. Pt requires grooming items to be placed closer to the front edge of the sink due to decreased UE ROM. Pt able to complete oral care by self. Pt takes increased time to complete tasks. Therapy Code Descriptions/Definitions Functional [place] Measure: 0=Not Assessed/NA 4=Minimal Assistance 1=Total Assistance 5=Supervision or Setup 2=Maximal Assistance 6=Modified [place] 3=Moderate Assistance 7=Complete [place] Therapy Quality Codes: 6 Independent with activity with or without an assistive device 5 Patient requires set up or clean up by helper. Patient completes activity by themselves 4 Supervision or touching assist (CGA). [place] provide cues , steadying assist 3 The helper provides less than half the effort to complete the activity 2 The helper provides more than half the effort to complete the activity 1 Dependent. The helper does all the effort to complete an activity 7 Patient refused to complete or attempt activity 9 The patient did not perform the activity before the current illness or injury 88 Not attempted due to Medical conditions or safety concerns Grooming (FIM): 5 Oral Hygiene (QC): 4 Other Treatment Pt ambulated to therapy gym using FWW. Pt completed UE dowel carmen exercises to increase strength for daily functional tasks. Tricep/bicep exercises completed against gravity, 15 reps. Physician checked on pt during OT session. Pt then ambulated back to room and sat in w/c. Ice pack given to pt for upper back, nrsg in room. Call light/phone in reach. All needs met in room after therapy. OT Short Term Goals Short Term Goals Time Frame: Nov 16, 2018 Eating(FIM): 3 Grooming(FIM): 3 Upper Body Dressing(FIM): 3 Lower Body Dressing(FIM): 3 Toilet/Commode Transfer(FIM): 4 (CGA) Additional Short Term Goals: 1-Demonstrate ADL Tasks, 2-Verbalize Understanding, 3-ImproveStrength/Mann 1=Demonstrate adherence to instructed precautions during ADL tasks. 2=Patient will verbalize/demonstrate understanding of assistive devices/modifications for ADL. 3=Patient will improve strength/tolerance for activity to enable patient to perform ADL's. OT Longterm Goals Revenue Cycle Specialist Goals Time Frame: Nov 30, 2018 Eating (FIM): 5 Eating (QC): 5 Groomin Oral Hygiene (QC): 5 Bathing(FIM): 5 Shower/Bathe Self (QC): 4 Upper Body Dressing(FIM): 5 Upper Body Dressing (QC): 5 Lower Body Dressing(FIM): 5 Lower Body Dressing (QC): 4 On/Off Footwear (QC): 5 Toileting(FIM): 5 Toileting Hygiene (QC): 5 Toilet/Commode Transfer(FIM): 5 Toilet/Commode Transfer (QC): 5 Shower Transfer(FIM): 5 Additional Goals: 1-Demonstrate ADL Tasks, 2-Verbalize Understanding, 3-ImproveStrength/Mann 1=Demonstrate adherence to instructed precautions during ADL tasks. 2=Patient will verbalize/demonstrate understanding of assistive devices/modifications for ADL. 3=Patient will improve strength/tolerance for activity to enable patient to perform ADL's. OT Education/Plan Problem List/Assessment Assessment: Decreased Activ Tolerance, Decreased UE Strength, Impaired Coordination, Impaired Funct Balance, Impaired Self-Care Skills, Restricted Funct UE ROM Discharge Recommendations Plan/Recommendations: Continue POC Treatment Plan/Plan of Care Patient would benefit from OT for education, treatment and training to promote independence in ADL's, mobility, safety and/or upper extremity function for ADL's. Plan of Care: ADL Retraining, Functional Mobility, Group Exercise/Act as Ind, UE Funct Exercise/Act, UE Neuromus Re-Ed/Coord Treatment Duration: Nov 30, 2018 Frequency: At least 5 of 7 days/Wk (IRF) Estimated Hrs Per Day: 1.5 hours per day Agreement: Yes Rehab Potential: Fair Time/GCodes Start Time: 08:45 Stop Time: 09:30 Total Time Billed (hr/min): 45 Billed Treatment Time 1 visit-ADL 2 (35 min) EX 1 (10 min) TIFFANIE GAMBINO Nov 12, 2018 09:35
--- NOTE | 2018-11-12 09:45 | Progress Note - Urology ---
Progress Note-Urology Progress Notes/Assess & Plan Progress/Assessment & Plan PVR YESTERDAY 14CC. VOIDING WELL. STILL URGENCY AND FREQUENCY. PLAN SANCTURA AND WATCH PVR Final Diagnosis BPH AND OAB REHANA CASON MD Nov 12, 2018 09:45
[2018-11-12] MEDS: BACLOFEN 10 MG (LIORESAL) TAB PO PRN (11:29)
[2018-11-12] MEDS: RT-ADVAIR HFA 115/21 MCG PER PUFF IH SCH ×2 (12:45→19:14)
[2018-11-12] MEDS: TROSPIUM 20 MG (SANCTURA) TAB PO SCH (17:21)
[2018-11-12 18:33] VITALS: BP 152/74
[2018-11-13 06:00] VITALS: BP 154/67
[2018-11-13] MEDS: TROSPIUM 20 MG (SANCTURA) TAB PO SCH ×2 (06:25→16:09)
[2018-11-13] MEDS: HYDROcodone/APAP 5 MG/325 MG (LORTAB) TAB PO PRN ×4 (06:50→20:10)
[2018-11-13] MEDS: RT-ADVAIR HFA 115/21 MCG PER PUFF IH SCH ×2 (09:00→19:28)
[2018-11-13] MEDS: TAMSULOSIN 0.4 MG (FLOMAX) CAP PO SCH ×2 (09:22→20:10)
[2018-11-13] MEDS: SENNA W/DOCUSATE (SENOKOT S) TABLET PO SCH ×2 (09:22→20:10)
[2018-11-13] MEDS: DOCUSATE SODIUM 100 MG (COLACE) CAP PO PRN (09:22)
[2018-11-13] MEDS: POLYETHYLENE GLYCOL 17 GM (MIRALAX) PACK PO SCH ×2 (09:22→21:00)
[2018-11-13] MEDS: BACLOFEN 10 MG (LIORESAL) TAB PO PRN (09:26)
--- NOTE | 2018-11-13 10:28 | Progress Note - Urology ---
Progress Note-Urology Progress Notes/Assess & Plan Progress/Assessment & Plan SANCTURA HELPING. LESS URGENCY AND INCONTINENCE AND FREQUENCY. STILL VOIDING AND EMPTYING WELL. NO AE Final Diagnosis BPH AND OAB REHANA CASON MD Nov 13, 2018 10:28
--- NOTE | 2018-11-13 11:38 | PM&R Progress Note ---
Subjective HPI/CC On Admission Date Seen by Provider: Nov 13, 2018 Time Seen by Provider: 09:30 Chief complaint: Cervical spine stenosis status post predictable injury with upper extremity weakness History of present illness: This is an 78-year-old white male of Dr. Velarde in [facility] who is known to me from cervical spine surgery by Dr. Starr on 11/02/2018 at [facility] who is had a long wait for insurance approval from [facility] to be admitted to inpatient rehab due to severe cervical spine muscle weakness of the arms and legs. He had such severe stenosis that he has residual neurologic deficit to the upper extremities more than lower extremities. His bowels or not moving well but they did about 4 days ago he has not had any lung problems or prostate problems during his hospital course and [place] at [facility]. He thinks that he gets too drowsy with taking 2 of the hydrocodone pain pills in addition for the muscle relaxant so will decrease the dose on both but keep him comfortable nonetheless. His prior level of functioning was independent without the use of assistive devices and he will return home with his and supportive family. Subjective/Events-last exam Urology is appreciated and started him and on Sanctura Bladder scan is 191 and 199 Lortab and baclofen working well for the pain Urinary incontinence is his only real concern Slept very well in the recliner last night Was able to feed himself yesterday Conferred with RN Checked meds and labs Reviewed therapy notes Review of Systems Neurological: Weakness, Numbness, Incoordination Objective Exam Vital Signs Vital Signs Date Time Temp Pulse Resp B/P (MAP) Pulse Ox O2 Delivery O2 Flow Rate FiO2 11/13/18 20:06 Room Air 11/13/18 17:39 36.6 95 20 112/53 (72) 96 Capillary Refill : General Appearance: No Apparent Distress, WD/WN, Chronically ill, Thin HEENT: PERRL/EOMI, Normal ENT Inspection, Pharynx Normal, Moist Mucous Membranes Neck: Full Range of Motion, Normal Inspection, Non Tender, Supple Respiratory: Chest Non Tender, Lungs Clear, Normal Breath Sounds, No Accessory Muscle Use, No Respiratory Distress Cardiovascular: Regular Rate, Rhythm, No Edema, No Gallop, No JVD, No Murmur Gastrointestinal: No Organomegaly, No Pulsatile Mass, Non Tender, Soft, Abnormal Bowel Sounds, Distended Back: Normal Inspection, No CVA Tenderness, No Vertebral Tenderness Extremity: Normal Capillary Refill, Normal Inspection, Normal Range of Motion, Non Tender, No Calf Tenderness, No Pedal Edema Neurologic/Psychiatric: Alert, Oriented x3, Normal 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 FIM Transfers Therapy Code Descriptions/Definitions Functional [place] Measure: 0=Not Assessed/NA 4=Minimal Assistance 1=Total Assistance 5=Supervision or Setup 2=Maximal Assistance 6=Modified [place] 3=Moderate Assistance 7=Complete [place] Therapy Quality Codes: 6 Independent with activity with or without an assistive device 5 Patient requires set up or clean up by helper. Patient completes activity by themselves 4 Supervision or touching assist (CGA). [place] provide cues , steadying assist 3 The helper provides less than half the effort to complete the activity 2 The helper provides more than half the effort to complete the activity 1 Dependent. The helper does all the effort to complete an activity 7 Patient refused to complete or attempt activity 9 The patient did not perform the activity before the current illness or injury 88 Not attempted due to Medical conditions or safety concerns Transfers (B, C, W/C) (FIM): 4 Scootin Rollin Roll Left to Right (QC): 4 Supine to/from Sit: 4 Sit to/from Stand: 4 (sit to stand requiring min A and skilled verb inst for hand, body and foot placement, and safety. Stand to sit CGA with skilled verb inst) Sit to Lying (QC): 3 Sit to Stand (QC): 3 Chair/Dte-he-Grhtj Xfer(QC): 4 Bed to/from Chair: 4 Car Transfer (QC): 4 Gait Training Does the Patient Walk?: Yes Gait (FIM): 4 Distance (FIM): 3=150 ft Distance: 150 x2 Walk 10 feet (QC): 4 Walk 50 ft with 2 Turns(QC): 4 Walk 150 ft (QC): 4 Walking 10ft/uneven surface-QC: 4 Gait Level of Assist: 4 (CGA provided for safety 2* unsteady gait) Gait Persons Needed: 1 Gait Assistive Device: FWW Wheelchair Training Does the Pt Use a Wheelchair?: No Stair Training Stairs (FIM): 1 #of Steps: 1 1 Step (curb) (QC): 3 Level of Assist: 4 Mental Status/Objective Comprehension: 7 Expression: 7 Social Interaction: 7 Problem Solvin Memory: 7 ADL-Treatment Feedin Eating (QC): 3 Groomin Oral Hygiene (QC): 4 Bathin Upper Extremity Dressin Upper Body Dressing (QC): 1 Lower Extremity Dressin Toiletin Toileting Hygiene (QC): 3 Toilet/Commode Transfer: 4 Toilet Transfer (QC): 4 Assessment/Plan Assessment and Plan Assess & Plan/Chief Complaint Assessment: Cervical spine injury Extremity weakness Constipation Asthma BPH Urinary incontinence placing on Sanctura Plan: Monitor lungs BM regimen to be maintained Urology consultation is appreciated Feeding self (1) Cervical spinal stenosis Status: Acute (2) Constipation Status: Acute Qualifiers: Constipation type: slow transit constipation Qualified Codes: K59.01 - Slow transit constipation (3) Asthma Status: Chronic Qualifiers: Asthma severity: moderate Asthma persistence: unspecified Asthma complication type: unspecified Qualified Codes: J45.909 - Unspecified asthma, uncomplicated (4) Bilateral arm weakness Status: Acute (5) Injury of cervical spine Status: Acute Qualifiers: Encounter type: subsequent encounter Qualified Codes: S14.109D - Unspecified injury at unspecified level of cervical spinal cord, subsequent encounter (6) BPH (benign prostatic hyperplasia) Status: Chronic Qualifiers: Lower urinary tract symptom presence: symptoms absent Qualified Codes: N40.0 - Benign prostatic hyperplasia without lower urinary tract symptoms (7) Risk for falls Status: Acute MAYRA TORREZ DO Nov 13, 2018 11:38
[2018-11-13] MEDS: LIDOCAINE UROJET 2% GEL 10 ML PKG TOP PRN (14:08)
[2018-11-13 17:39] VITALS: BP 112/53
--- NOTE | 2018-11-13 21:30 | NUR ---
FEELS URINARY RETENTION IS WORSE. STATES NOT EVEN DRIBBLING MUCH AND UNABLE TO TELL WHEN BLADDER IS FULL. SEE BLADDER SCAN/STRAIGHT CATH INTERVENTION. UNABLE TO SLEEP IN BED BECAUSE TOO MUCH NECK PAIN. ENCOURAGED BECAUSE ARM STRENGTH IS IMPROVED BILATERALLY. RIGHT ARM IS WEAKER THAN LEFT. 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 CAN HOLD A CANDY BAR IN HAND AND FEED SELF. STATES WANTS TO ASSIST IN GIVING HIM A SHOWER IN AM.
--- NOTE | 2018-11-13 21:35 | NUR ---
SACRUM IS RED. NEW ALLEVYN APPLIED. SINCE PATIENT UNABLE TO LIE IN BED, ENCOURAGED TO TRY TO SHIFT WEIGHT MUCH POSSIBLE WHILE SITTING IN CHAIR. VOICES UNDERSTANDING.
--- NOTE | 2018-11-14 02:00 | NUR ---
STATES "ALWAYS WAKES UP ABOUT THIS TIME". MEDICATED WITH LORTAB REQUESTED AND MILD DOSE OF MELATONIN. SITS STRAIGHT UP IN CHAIR WITH HARD COLLAR ON.
[2018-11-14] MEDS: MELATONIN 3 MG TABLET PO PRN (02:04)
[2018-11-14] MEDS: HYDROcodone/APAP 5 MG/325 MG (LORTAB) TAB PO PRN ×5 (02:04→21:19)
[2018-11-14 05:18] LABS: BASOPHILS % (AUTO) 0 % (0-10); EOSINOPHILS # (AUTO) 0.1 10^3/uL (0.0-0.3); EOSINOPHILS % (AUTO) 1 % (0-10); HEMATOCRIT 40 % (40-54); HEMOGLOBIN 13.6 G/DL (13.3-17.7); LYMPHOCYTES # (AUTO) 1.8 X 10^3 (1.0-4.0); LYMPHOCYTES % (AUTO) 16 % (12-44); MEAN CORPUSCULAR HEMOGLOBIN 33 PG (25-34); MEAN CORPUSCULAR HGB CONC 34 G/DL (32-36); MEAN CORPUSCULAR VOLUME 95 FL (80-99); MEAN PLATELET VOLUME 9.8 FL (7.4-10.4); MONOCYTES # (AUTO) 0.6 X 10^3 (0.0-1.0); MONOCYTES % (AUTO) 6 % (0-12); NEUTROPHILS # (AUTO) 8.3 X 10^3 (1.8-7.8); NEUTROPHILS % (AUTO) 77 % (42-75); PLATELET COUNT 265 10^3/uL (130-400); RED CELL DISTRIBUTION WIDTH 12.1 % (10.0-14.5); WHITE BLOOD COUNT 10.8 10^3/uL (4.3-11.0)
[2018-11-14 05:24] VITALS: BP 142/68
[2018-11-14 05:44] LABS: ALANINE AMINOTRANSFERASE 32 U/L (0-55); ALBUMIN 3.9 GM/DL (3.2-4.5); ALKALINE PHOSPHATASE 86 U/L (40-136); BILIRUBIN,TOTAL 0.5 MG/DL (0.1-1.0); BUN/CREATININE RATIO 20; CALCIUM 9.2 MG/DL (8.5-10.1); CARBON DIOXIDE 24 MMOL/L (21-32); CHLORIDE 101 MMOL/L (98-107); CREATININE SERUM 0.98 MG/DL (0.60-1.30); GFR ESTIMATED > 60; GLUCOSE 151 MG/DL (70-105); POTASSIUM 4.4 MMOL/L (3.6-5.0); SODIUM 135 MMOL/L (135-145); TOTAL PROTEIN 6.2 GM/DL (6.4-8.2)
[2018-11-14] MEDS: TROSPIUM 20 MG (SANCTURA) TAB PO SCH ×2 (06:22→17:15)
[2018-11-14] MEDS: RT-ADVAIR HFA 115/21 MCG PER PUFF IH SCH ×2 (07:29→20:21)
--- NOTE | 2018-11-14 08:55 | Physical Therapy Daily Note ---
PT Daily Note-Current Subjective Patient in recliner pre tx, agrees to PT, voices no complaints of pain. Appearance Patient in recliner post tx with nurse call, phone, tray, all needs met. Mental Status Patient Orientation: Person, Place, Situation cervical collar Transfers Therapy Code Descriptions/Definitions Functional [place] Measure: 0=Not Assessed/NA 4=Minimal Assistance 1=Total Assistance 5=Supervision or Setup 2=Maximal Assistance 6=Modified [place] 3=Moderate Assistance 7=Complete [place] Therapy Quality Codes: 6 Independent with activity with or without an assistive device 5 Patient requires set up or clean up by helper. Patient completes activity by themselves 4 Supervision or touching assist (CGA). [place] provide cues , steadying assist 3 The helper provides less than half the effort to complete the activity 2 The helper provides more than half the effort to complete the activity 1 Dependent. The helper does all the effort to complete an activity 7 Patient refused to complete or attempt activity 9 The patient did not perform the activity before the current illness or injury 88 Not attempted due to Medical conditions or safety concerns Transfers (B, C, W/C) (FIM): 4 Sit to/from Stand: 4 Bed to/from Chair: 4 CGA, cues for hand placement and positioning Gait Training Gait (FIM): 2 Distance: 120'x2 Gait Level of Assist: 4 Gait Persons Needed: 1 Gait Assistive Device: FWW Patient ambulates slowly, increasingly slumps with fatigue. Exercises Seated Therapy Exercises: Ankle pumps, Hip flexion, Hip abd/add (with pillow and RTB) LAQ alternating for 5 min NuStep Minutes: 15 NuStep Workload: 4 Treatments LE exercise, transfers, ambulation Assessment Current Status: Poor Progress Patient shaky and stiff this morning PT Short Term Goals Short Term Goals Time Frame: Nov 16, 2018 Gait (FIM): 4 Gait Distance Comment: 200' Gait Level of Assist: 4 Gait Assistive Device: FWW PT Enamel Machine Operator Goals Half-Way Goals PT [place]amel Machine Operator Goals Time Frame: Nov 30, 2018 Transfers (B,C,W/C) (FIM): 5 Sit to Lying (QC): 6 Lying-Sitting on Side/Bed(QC): 6 Sit to Stand (QC): 4 Rollin Roll Left to Right (QC): 6 Chair/Non-ob-Lnbhr Xfer(QC): 4 Car Transfer (QC): 4 Gait (FIM): 5 Distance: 300' Walk 10 feet (QC): 4 Walk 10ft-Uneven Surface(QC): 4 Walk 50ft with 2 Turns (QC): 4 Walk 150 ft (QC): 4 Gait Level of Assist: 5 Gait Assistive Device: FWW Stairs (FIM): 2 # of Steps: 4 1 Step (curb) (QC): 4 4 Steps (QC): 4 Stairs Level Of Assist: 5 PT Plan Problem List Problem List: Activity Tolerance, Functional Strength, Safety, Balance, Gait, Transfer, Bed Mobility, ROM Treatment/Plan Treatment Plan: Continue Plan of Care Treatment Plan: Bed Mobility, Education, Functional Activity Mann, Functional Strength, Group Therapy, Gait, Safety, Therapeutic Exercise, Transfers Treatment Duration: Nov 30, 2018 Frequency: At least 5 of 7 days/Wk (IRF) Estimated Hrs Per Day: 1.5 hours per day Patient and/or Family Agrees t: Yes Safety Risks/Education Patient Education: Gait Training, Transfer Techniques, Correct Positioning, Safety Issues Teaching Recipient: Patient Teaching Methods: Demonstration, Discussion Response to Teaching: Reinforcement Needed Time/GCodes Time In: 0800 Time Out: 0900 Total Billed Treatment Time: 60 Total Billed Treatment 1 visit EX 40' GT 20' OSORIO LOCKHART PT Nov 14, 2018 08:55
[2018-11-14] MEDS: TAMSULOSIN 0.4 MG (FLOMAX) CAP PO SCH ×2 (09:12→21:00)
[2018-11-14] MEDS: SENNA W/DOCUSATE (SENOKOT S) TABLET PO SCH ×2 (09:12→21:00)
[2018-11-14] MEDS: POLYETHYLENE GLYCOL 17 GM (MIRALAX) PACK PO SCH ×2 (09:13→21:19)
--- NOTE | 2018-11-14 10:05 | PM&R Progress Note ---
Subjective HPI/CC On Admission Date Seen by Provider: Nov 14, 2018 Time Seen by Provider: 09:00 Chief complaint: Cervical spine stenosis status post predictable injury with upper extremity weakness History of present illness: This is an 78-year-old white male of Dr. Velarde in [facility] who is known to me from cervical spine surgery by Dr. Starr on 11/02/2018 at [facility] who is had a long wait for insurance approval from [facility] to be admitted to inpatient rehab due to severe cervical spine muscle weakness of the arms and legs. He had such severe stenosis that he has residual neurologic deficit to the upper extremities more than lower extremities. His bowels or not moving well but they did about 4 days ago he has not had any lung problems or prostate problems during his hospital course and [place] at [facility]. He thinks that he gets too drowsy with taking 2 of the hydrocodone pain pills in addition for the muscle relaxant so will decrease the dose on both but keep him comfortable nonetheless. His prior level of functioning was independent without the use of assistive devices and he will return home with his and supportive family. Subjective/Events-last exam Labs are normal Family at the bedside Straight Cath of 500cc yesterday [place] restarted a couple of days ago Weakness in his legs noted but overall feeling pretty well No shaking noted on exam Bowels are moving well Conferred with RN Checked meds and labs Reviewed therapy notes Review of Systems General: Fatigue Genitourinary: Retention Neurological: Weakness, Numbness, Incoordination Objective Exam Vital Signs Vital Signs Date Time Temp Pulse Resp B/P (MAP) Pulse Ox O2 Delivery O2 Flow Rate FiO2 11/14/18 16:13 36.2 94 16 131/68 (89) 95 Room Air Capillary Refill : General Appearance: No Apparent Distress, WD/WN, Chronically ill, Thin HEENT: PERRL/EOMI, Normal ENT Inspection, Pharynx Normal, Moist Mucous Membran es Neck: Full Range of Motion, Normal Inspection, Non Tender, Supple Respiratory: Chest Non Tender, Lungs Clear, Normal Breath Sounds, No Accessory Muscle Use, No Respiratory Distress Cardiovascular: Regular Rate, Rhythm, No Edema, No Gallop, No JVD, No Murmur Gastrointestinal: No Organomegaly, No Pulsatile Mass, Non Tender, Soft, Abnormal Bowel Sounds, Distended Back: Normal Inspection, No CVA Tenderness, No Vertebral Tenderness Extremity: Normal Capillary Refill, Normal Inspection, Normal Range of Motion, Non Tender, No Calf Tenderness, No Pedal Edema Neurologic/Psychiatric: Alert, Oriented x3, Normal Mood/Affect, woods 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 FIM Transfers Therapy Code Descriptions/Definitions Functional [place] Measure: 0=Not Assessed/NA 4=Minimal Assistance 1=Total Assistance 5=Supervision or Setup 2=Maximal Assistance 6=Modified [place] 3=Moderate Assistance 7=Complete [place] Therapy Quality Codes: 6 Independent with activity with or without an assistive device 5 Patient requires set up or clean up by helper. Patient completes activity by themselves 4 Supervision or touching assist (CGA). [place] provide cues , steadying assist 3 The helper provides less than half the effort to complete the activity 2 The helper provides more than half the effort to complete the activity 1 Dependent. The helper does all the effort to complete an activity 7 Patient refused to complete or attempt activity 9 The patient did not perform the activity before the current illness or injury 88 Not attempted due to Medical conditions or safety concerns Transfers (B, C, W/C) (FIM): 4 Scootin Rollin Roll Left to Right (QC): 4 Supine to/from Sit: 4 Sit to/from Stand: 4 Sit to Lying (QC): 3 Sit to Stand (QC): 3 Chair/Dom-nr-Bkzhl Xfer(QC): 4 Bed to/from Chair: 4 Car Transfer (QC): 4 Gait Training Does the Patient Walk?: Yes Gait (FIM): 2 Distance (FIM): 3=150 ft Distance: 120'x2 Walk 10 feet (QC): 4 Walk 50 ft with 2 Turns(QC): 4 Walk 150 ft (QC): 4 Walking 10ft/uneven surface-QC: 4 Gait Level of Assist: 4 Gait Persons Needed: 1 Gait Assistive Device: FWW Wheelchair Training Does the Pt Use a Wheelchair?: No Stair Training Stairs (FIM): 1 #of Steps: 1 1 Step (curb) (QC): 3 Level of Assist: 4 Mental Status/Objective Comprehension: 7 Expression: 7 Social Interaction: 7 Problem Solvin Memory: 7 ADL-Treatment Feedin Eating (QC): 3 Groomin Oral Hygiene (QC): 4 Bathin Upper Extremity Dressin Upper Body Dressing (QC): 1 Lower Extremity Dressin Toiletin Toileting Hygiene (QC): 3 Toilet/Commode Transfer: 4 Toilet Transfer (QC): 4 Assessment/Plan Assessment and Plan Assess & Plan/Chief Complaint Assessment: Cervical spine injury Extremity weakness Constipation resolved but maintained on meds Asthma BPH Urinary incontinence placing on [place] mixed now with retention requiring catheter in/out Plan: Monitor lungs BM regimen to be maintained Urology consultation is appreciated Feeding self now and doing better (1) Cervical spinal stenosis Status: Acute (2) Constipation Status: Acute Qualifiers: Constipation type: slow transit constipation Qualified Codes: K59.01 - Slow transit constipation (3) Asthma Status: Chronic Qualifiers: Asthma severity: moderate Asthma persistence: unspecified Asthma complication type: unspecified Qualified Codes: J45.909 - Unspecified asthma, uncomplicated (4) Bilateral arm weakness Status: Acute (5) Injury of cervical spine Status: Acute Qualifiers: Encounter type: subsequent encounter Qualified Codes: S14.109D - Unspecified injury at unspecified level of cervical spinal cord, subsequent encounter (6) BPH (benign prostatic hyperplasia) Status: Chronic Qualifiers: Lower urinary tract symptom presence: symptoms absent Qualified Codes: N40.0 - Benign prostatic hyperplasia without lower urinary tract symptoms (7) Risk for falls Status: Acute MAYRA TORREZ DO Nov 14, 2018 10:05
--- NOTE | 2018-11-14 11:15 | NUR ---
Pastoral care visit.
[2018-11-14] MEDS: LIDOCAINE UROJET 2% GEL 10 ML PKG TOP PRN ×2 (11:22→21:02)
--- NOTE | 2018-11-14 12:54 | Occupational Ther Daily Note ---
OT Current Status-Daily Note Subjective Pt seen in recliner chair, nurse present. Pt agreeable to OT tx session. present through session. Mental Status/Objective Patient Orientation: Normal For Age Therapy Code Descriptions/Definitions Functional [place] Measure: 0=Not Assessed/NA 4=Minimal Assistance 1=Total Assistance 5=Supervision or Setup 2=Maximal Assistance 6=Modified [place] 3=Moderate Assistance 7=Complete [place] Attachments: Other-See Comments Pt wearing C-collar ADL-Treatment Therapy Code Descriptions/Definitions Functional [place] Measure: 0=Not Assessed/NA 4=Minimal Assistance 1=Total Assistance 5=Supervision or Setup 2=Maximal Assistance 6=Modified [place] 3=Moderate Assistance 7=Complete [place] Therapy Quality Codes: 6 Independent with activity with or without an assistive device 5 Patient requires set up or clean up by helper. Patient completes activity by themselves 4 Supervision or touching assist (CGA). [place] provide cues , steadying assist 3 The helper provides less than half the effort to complete the activity 2 The helper provides more than half the effort to complete the activity 1 Dependent. The helper does all the effort to complete an activity 7 Patient refused to complete or attempt activity 9 The patient did not perform the activity before the current illness or injury 88 Not attempted due to Medical conditions or safety concerns Grooming (FIM): 2 (Pt able to grab brush, completed hair grooming task. ) Bathing (FIM): 2 (Pt required max A during showering tasks due to fine motor coordination and AROM. Pt completed torso, lacie area, and upper leg bathing. Pt utilized LHS to complete LB washing, pt stated he would like assist washing more thoroughly. Pt stood with SBA, required assist with BUE reaching grab bars. Pt able to maintain reach/ grasp of hand rails.) Shower/Bathe Self (QC): 2 Upper Body (FIM): 2 (Pt requires assist threading BUE and head. Pt able to pull down to adjust front of shirt, requires assist adjusting back of shirt. ) Upper Body Dressing (QC): 2 Lower Body Dressing (FIM): 2 (Pt requires assist threading BLE into breifs and pants. Pt able to pull L side up while in standing, pt c/o pain in R arm as he pulled with L. Pt requires assist pulling R side of pants up and adjusting in back. ) Lower Body Dressing (QC): 2 Transfers (B, C, W/C) (FIM): 4 (CGA for safety sit to stand from recliner. Use of FWW) Shower Transfer(FIM): 4 (CGA) Other Treatment Pt completes shower on this date. Skilled OT session included recommendation of home environment modifications based on 's descriptions. Pt's educated on showering, dressing and transfer techniques while maintaining cervical spine precautions. Pt denies use of AE during don/doffing clothing as plans to assist in dressing until pt able to complete. verbally demonstrated understanding. Pt sit to stand with CGA, transfers to recliner chair and left with present and all needs met. Call light in reach. Education OT Patient Education: Correct positioning, Energy conservation, Instructions to caregiver, Modified ADL techniques, Purpose of tx/functional activities, Reviewed precautions, Rehab process, Safety issues, Transfer techniques, Use of adapted equipment Teaching Recipient: Patient, Significant Other Teaching Methods: Demonstration, Discussion Response to Teaching: Verbalize Understanding, Return Demonstration OT Short Term Goals Short Term Goals Time Frame: Nov 16, 2018 Eating(FIM): 3 Grooming(FIM): 3 Upper Body Dressing(FIM): 3 Lower Body Dressing(FIM): 3 Toilet/Commode Transfer(FIM): 4 (CGA) Additional Short Term Goals: 1-Demonstrate ADL Tasks, 2-Verbalize Understanding, 3-ImproveStrength/Mann 1=Demonstrate adherence to instructed precautions during ADL tasks. 2=Patient will verbalize/demonstrate understanding of assistive devices/modifications for ADL. 3=Patient will improve strength/tolerance for activity to enable patient to perform ADL's. OT Call Or Contact Centre Operator Goals Call Or Contact Centre Operator Goals Time Frame: Nov 30, 2018 Eating (FIM): 5 Eating (QC): 5 Groomin Oral Hygiene (QC): 5 Bathing(FIM): 5 Shower/Bathe Self (QC): 4 Upper Body Dressing(FIM): 5 Upper Body Dressing (QC): 5 Lower Body Dressing(FIM): 5 Lower Body Dressing (QC): 4 On/Off Footwear (QC): 5 Toileting(FIM): 5 Toileting Hygiene (QC): 5 Toilet/Commode Transfer(FIM): 5 Toilet/Commode Transfer (QC): 5 Shower Transfer(FIM): 5 Additional Goals: 1-Demonstrate ADL Tasks, 2-Verbalize Understanding, 3- ImproveStrength/Mann 1=Demonstrate adherence to instructed precautions during ADL tasks. 2=Patient will verbalize/demonstrate understanding of assistive devices/modif ications for ADL. 3=Patient will improve strength/tolerance for activity to enable patient to perform ADL's. OT Education/Plan Problem List/Assessment Assessment: Decreased Activ Tolerance, Decreased UE Strength, Impaired Coordination, Impaired I ADL's, Impaired Self-Care Skills Discharge Recommendations Plan/Recommendations: Continue POC Equpiment Recommendations-D/C: Rails on Tub/Shower, Extended Shower Sprayer Treatment Plan/Plan of Care Treatment,Training & Education: Yes Patient would benefit from OT for education, treatment and training to promote independence in ADL's, mobility, safety and/or upper extremity function for ADL's. Plan of Care: ADL Retraining, Functional Mobility, Group Exercise/Act as Ind, UE Funct Exercise/Act, UE Neuromus Re-Ed/Coord Treatment Duration: Nov 30, 2018 Frequency: At least 5 of 7 days/Wk (IRF) Estimated Hrs Per Day: 1.5 hours per day Agreement: Yes Rehab Potential: Fair Time/GCodes Start Time: 11:30 Stop Time: 12:25 Total Time Billed (hr/min): 55 Billed Treatment Time 1 ADL x4 (55) CHANCE PARRY OTR Nov 14, 2018 12:54
--- NOTE | 2018-11-14 14:21 | Occupational Ther Daily Note ---
OT Current Status-Daily Note Subjective Pt seen in room, present through session, daughters present during start of session. Pt agreeable to OT tx session. Mental Status/Objective Patient Orientation: Normal For Age Therapy Code Descriptions/Definitions Functional [place] Measure: 0=Not Assessed/NA 4=Minimal Assistance 1=Total Assistance 5=Supervision or Setup 2=Maximal Assistance 6=Modified [place] 3=Moderate Assistance 7=Complete [place] ADL-Treatment Therapy Code Descriptions/Definitions Functional [place] Measure: 0=Not Assessed/NA 4=Minimal Assistance 1=Total Assistance 5=Supervision or Setup 2=Maximal Assistance 6=Modified [place] 3=Moderate Assistance 7=Complete [place] Therapy Quality Codes: 6 Independent with activity with or without an assistive device 5 Patient requires set up or clean up by helper. Patient completes activity by themselves 4 Supervision or touching assist (CGA). [place] provide cues , steadying assist 3 The helper provides less than half the effort to complete the activity 2 The helper provides more than half the effort to complete the activity 1 Dependent. The helper does all the effort to complete an activity 7 Patient refused to complete or attempt activity 9 The patient did not perform the activity before the current illness or injury 88 Not attempted due to Medical conditions or safety concerns Eating (FIM): 5 (Pt requires adaptive utensils and positioning prior to start of feeding. Pt positioned with L arm under pillow due to weakness, pt requires cues and assist in ability to clean mouth due to limited range/ weakness. Pt requires skilled techniques for stabbing food, able to complete with increased time and AE.) Eating (QC): 4 (cues) On/Off Footwear (QC): 4 (Pt requires assist threading bilateral socks onto sock aide. Pt able to complete sock donning with increased time/ motor planning.) Other Treatment Pt seated in recliner chair. Pt completes sock donning. AROM exercises encouraged- pt completes bicep curls against gravity. Pt unable to reach shoulders with hands bilaterally. PROM completed to all joints bilaterally. Pt completes bicep curls in gravity eliminated, able to reach opposite shoulder with arm supported. Pt demonstrates muscle spasms after AROM movement. Pt states "It doesn't hurt, but takes a lot of energy." PtPt and educated of nervous system and muscle contraction/ using brain for muscle activation. Pt completes PROM/ AROM exercises, education on completing AROM within range as often as he can. Pt food placed in front of pt, lowered table as much as possible due to weakness. Pt's and pt educated on AE for feeding and other options. Pt left with to finish meal, call light in reach, all needs met. Education OT Patient Education: Correct positioning, Energy conservation, Exercise program, Home exercise program, Instructions to caregiver, Modified ADL techniques, Rehab process, Safety issues, Use of adapted equipment Teaching Recipient: Patient, Significant Other Teaching Methods: Demonstration, Discussion Response to Teaching: Verbalize Understanding, Return Demonstration OT Short Term Goals Short Term Goals Time Frame: Nov 16, 2018 Eating(FIM): 3 (mt) Grooming(FIM): 3 Upper Body Dressing(FIM): 3 Lower Body Dressing(FIM): 3 Toilet/Commode Transfer(FIM): 4 (CGA) Additional Short Term Goals: 1-Demonstrate ADL Tasks, 2-Verbalize Understanding, 3-ImproveStrength/Mann 1=Demonstrate adherence to instructed precautions during ADL tasks. 2=Patient will verbalize/demonstrate understanding of assistive devices/modifications for ADL. 3=Patient will improve strength/tolerance for activity to enable patient to perform ADL's. OT Fdc Goals Corporate Strategy Analyst Goals Time Frame: Nov 30, 2018 Eating (FIM): 5 (met) Eating (QC): 5 Groomin Oral Hygiene (QC): 5 Bathing(FIM): 5 Shower/Bathe Self (QC): 4 Upper Body Dressing(FIM): 5 Upper Body Dressing (QC): 5 Lower Body Dressing(FIM): 5 Lower Body Dressing (QC): 4 On/Off Footwear (QC): 5 (met) Toileting(FIM): 5 Toileting Hygiene (QC): 5 Toilet/Commode Transfer(FIM): 5 Toilet/Commode Transfer (QC): 5 Shower Transfer(FIM): 5 Additional Goals: 1-Demonstrate ADL Tasks, 2-Verbalize Understanding, 3- ImproveStrength/Mann 1=Demonstrate adherence to instructed precautions during ADL tasks. 2=Patient will verbalize/demonstrate understanding of assistive devices/modifications for ADL. 3=Patient will improve strength/tolerance for activity to enable patient to perform ADL's. OT Education/Plan Problem List/Assessment Assessment: Decreased Activ Tolerance, Decreased UE Strength, Impaired Coordination, Impaired I ADL's, Impaired Self-Care Skills, Restricted Funct UE ROM Discharge Recommendations Plan/Recommendations: Continue POC Treatment Plan/Plan of Care Treatment,Training & Education: Yes Patient would benefit from OT for education, treatment and training to promote independence in ADL's, mobility, safety and/or upper extremity function for ADL's. Plan of Care: ADL Retraining, Functional Mobility, Group Exercise/Act as Ind, UE Funct Exercise/Act, UE Neuromus Re-Ed/Coord Treatment Duration: Nov 30, 2018 Frequency: At least 5 of 7 days/Wk (IRF) Estimated Hrs Per Day: 1.5 hours per day Agreement: Yes Rehab Potential: Fair Time/GCodes Start Time: 12:55 Stop Time: 13:30 Total Time Billed (hr/min): 35 Billed Treatment Time 1 ADL, EX (35) CHANCE PARRY OTR Nov 14, 2018 14:21
--- NOTE | 2018-11-14 15:07 | Physical Therapy Daily Note ---
PT Daily Note-Current Subjective Agrees to PT. Reports he would like to work on bed mobility in the next few days. Does not want to practice it today. Transfers Therapy Code Descriptions/Definitions Functional [place] Measure: 0=Not Assessed/NA 4=Minimal Assistance 1=Total Assistance 5=Supervision or Setup 2=Maximal Assistance 6=Modified [place] 3=Moderate Assistance 7=Complete [place] Therapy Quality Codes: 6 Independent with activity with or without an assistive device 5 Patient requires set up or clean up by helper. Patient completes activity by themselves 4 Supervision or touching assist (CGA). [place] provide cues , steadying assist 3 The helper provides less than half the effort to complete the activity 2 The helper provides more than half the effort to complete the activity 1 Dependent. The helper does all the effort to complete an activity 7 Patient refused to complete or attempt activity 9 The patient did not perform the activity before the current illness or injury 88 Not attempted due to Medical conditions or safety concerns Sit to stand training with focus on leaning forward, feet under him and pushing up from the chair. Sit to stand x 7 reps this visit with min assist and cues 75% of the time to stand up; pt also requires skilled cues for controlled descent to sit . Iniitally, required min assist to sit controlled but as treatment progressed he could control his lower with only CGA. Gait Training Does the Patient Walk?: Yes Gait (FIM): 4 Distance (FIM): 3=150 ft Distance: 150 ft x 2 Gait Assistive Device: Cane Large Base Quad Gait training completed with work on upright posture, step length and widened GERARDO. Pt tends to walk with knees flexed, short steps and his heels kick his ankles with step through. Pt able to widen his base and extend through the hips but unable to fully extend knees during gait. Unsteady at times but no jose LOB noted. Assessment Current Status: Good Progress Transfers improved during treatment. Pt able to correct gait pattern but needs cues throughout, carryover for a short time only. PT Short Term Goals Short Term Goals Time Frame: Nov 16, 2018 Gait (FIM): 4 (met) Gait Distance Comment: 200' Gait Level of Assist: 4 Gait Assistive Device: FWW PT Half-Way Goals Umbrella Repairer Goals PT Half-Way Goals Time Frame: Nov 30, 2018 Transfers (B,C,W/C) (FIM): 5 Sit to Lying (QC): 6 Lying-Sitting on Side/Bed(QC): 6 Sit to Stand (QC): 4 Rollin Roll Left to Right (QC): 6 Chair/Vom-zs-Eutcp Xfer(QC): 4 Car Transfer (QC): 4 Gait (FIM): 5 Distance: 300' Walk 10 feet (QC): 4 Walk 10ft-Uneven Surface(QC): 4 Walk 50ft with 2 Turns (QC): 4 Walk 150 ft (QC): 4 Gait Level of Assist: 5 Gait Assistive Device: FWW Stairs (FIM): 2 # of Steps: 4 1 Step (curb) (QC): 4 4 Steps (QC): 4 Stairs Level Of Assist: 5 PT Plan Problem List Problem List: Activity Tolerance, Functional Strength, Safety, Balance, Gait, Transfer, Bed Mobility Treatment/Plan Treatment Plan: Continue Plan of Care Treatment Plan: Bed Mobility, Education, Functional Activity Mann, Functional Strength, Group Therapy, Gait, Safety, Therapeutic Exercise, Transfers Treatment Duration: Nov 30, 2018 Frequency: At least 5 of 7 days/Wk (IRF) Estimated Hrs Per Day: 1.5 hours per day Patient and/or Family Agrees t: Yes Safety Risks/Education Patient Education: Transfer Techniques, Safety Issues Teaching Recipient: Patient Teaching Methods: Demonstration, Discussion Response to Teaching: Return Demonstration, Reinforcement Needed Discharge Recommendations Therapy Discharge Recommendati: Post Acute PT Time/GCodes Time In: 1400 Time Out: 1430 Total Billed Treatment Time: 30 Total Billed Treatment visit FA 30 TIFFANIE VIERA PT Nov 14, 2018 15:07
[2018-11-14 16:13] VITALS: BP 131/68
--- NOTE | 2018-11-14 19:17 | NUR ---
bedside report received from TODD TAVARES, assume care of pt
--- NOTE | 2018-11-14 20:40 | NUR ---
pt voided 5ml clear yellow urine, bladder scan shows 302ml
--- NOTE | 2018-11-14 21:00 | NUR ---
pt took Senokot but refused miralax
--- NOTE | 2018-11-14 21:05 | NUR ---
assessments & interventions completed see assessments & interventions
--- NOTE | 2018-11-14 21:10 | NUR ---
straight cath & received 250ml clear yellow urine
--- NOTE | 2018-11-14 21:19 | NUR ---
c/o pain level 5/10 on numeric scale, lortab 5 1 tab po given
--- NOTE | 2018-11-14 22:00 | NUR ---
resting quietly in the chair, pain level 0/10 on flacc scale
--- NOTE | 2018-11-15 00:45 | NUR ---
voided 75ml
--- NOTE | 2018-11-15 00:50 | NUR ---
bladder scan showed 70ml
[2018-11-15] MEDS: HYDROcodone/APAP 5 MG/325 MG (LORTAB) TAB PO PRN ×4 (01:17→20:33)
--- NOTE | 2018-11-15 01:17 | NUR ---
c/o pain level 4/10 on numeric scale, Lortab 5 1 tab po given
--- NOTE | 2018-11-15 02:00 | NUR ---
rates pain level 2/10 on numeric scale
[2018-11-15 05:15] VITALS: BP 148/70
[2018-11-15] MEDS: TROSPIUM 20 MG (SANCTURA) TAB PO SCH (06:29)
--- NOTE | 2018-11-15 06:40 | NUR ---
voided 5ml, bladder scan showed 433ml
[2018-11-15] MEDS: LIDOCAINE UROJET 2% GEL 10 ML PKG TOP PRN (06:42)
--- NOTE | 2018-11-15 06:43 | NUR ---
c/o pain level 7/10 Lortab 5 1 tab po given
--- NOTE | 2018-11-15 07:00 | NUR ---
straight cath received 400ml clear yellow urine
--- NOTE | 2018-11-15 07:14 | NUR ---
bedside report given to NITIN TAVARES
[2018-11-15] MEDS: RT-ADVAIR HFA 115/21 MCG PER PUFF IH SCH ×2 (07:30→19:59)
[2018-11-15] MEDS: POLYETHYLENE GLYCOL 17 GM (MIRALAX) PACK PO SCH ×2 (09:00→20:43)
[2018-11-15] MEDS: SENNA W/DOCUSATE (SENOKOT S) TABLET PO SCH ×2 (09:12→20:33)
[2018-11-15] MEDS: TAMSULOSIN 0.4 MG (FLOMAX) CAP PO SCH ×2 (09:14→20:33)
--- NOTE | 2018-11-15 10:03 | PM&R Progress Note ---
Subjective HPI/CC On Admission Date Seen by Provider: Nov 15, 2018 Time Seen by Provider: 09:00 Chief complaint: Cervical spine stenosis status post predictable injury with upper extremity weakness History of present illness: This is an 78-year-old white male of Dr. Velarde in [facility] who is known to me from cervical spine surgery by Dr. Starr on 11/02/2018 at [facility] who is had a long wait for insurance approval from [facility] to be admitted to inpatient rehab due to severe cervical spine muscle weakness of the arms and legs. He had such severe stenosis that he has residual neurologic deficit to the upper extremities more than lower extremities. His bowels or not moving well but they did about 4 days ago he has not had any lung problems or prostate problems during his hospital course and [place] [facility]. He thinks that he gets too drowsy with taking 2 of the hydrocodone pain pills in addition for the muscle relaxant so will decrease the dose on both but keep him comfortable nonetheless. His prior level of functioning was independent without the use of assistive devices and he will return home with his and supportive family. Subjective/Events-last exam Urinary issues are really his biggest problem. Dr. Payan will see him and discuss options. Now having urinary retention and catheter is being placed in and out and removing 500 CCs at a time. Had a BM two days ago and I told him to start taking bowel medication on a regular basis because a spinal cord injury affects a bowel like it does a bladder. Pain is improved. Conferred with RN Checked meds and labs Reviewed therapy notes Review of Systems General: Fatigue Gastrointestinal: Constipation Genitourinary: Incontinence, Retention Musculoskeletal: neck pain Neurological: Weakness, Numbness, Incoordination Objective Exam Vital Signs Vital Signs Date Time Temp Pulse Resp B/P (MAP) Pulse Ox O2 Delivery O2 Flow Rate FiO2 11/15/18 19:59 93 Room Air 11/15/18 17:26 36.7 91 18 144/77 (99) Capillary Refill : General Appearance: No Apparent Distress, WD/WN, Chronically ill, Thin HEENT: PERRL/EOMI, Normal ENT Inspection, Pharynx Normal, Moist Mucous Membranes Neck: Full Range of Motion, Normal Inspection, Non Tender, Supple Respiratory: Chest Non Tender, Lungs Clear, Normal Breath Sounds, No Accessory Muscle Use, No Respiratory Distress Cardiovascular: Regular Rate, Rhythm, No Edema, No Gallop, No JVD, No Murmur Gastrointestinal: No Organomegaly, No Pulsatile Mass, Non Tender, Soft, Abnormal Bowel Sounds, Distended Back: Normal Inspection, No CVA Tenderness, No Vertebral Tenderness Extremity: Normal Capillary Refill, Normal Inspection, Normal Range of Motion, Non Tender, No Calf Tenderness, No Pedal Edema Neurologic/Psychiatric: Alert, Oriented x3, Normal Mood/Affect, plate maker zinc II-XII Norm as Tested, Motor Weakness (upper extremities 2/5 bilateral, legs 4/5) Skin: Normal Color, Warm/Dry Lymphatic: No Adenopathy Results/Procedures Lab Patient resulted labs reviewed. FIM Transfers Therapy Code Descriptions/Definitions Functional [place] Measure: 0=Not Assessed/NA 4=Minimal Assistance 1=Total Assistance 5=Supervision or Setup 2=Maximal Assistance 6=Modified [place] 3=Moderate Assistance 7=Complete [place] Therapy Quality Codes: 6 Independent with activity with or without an assistive device 5 Patient requires set up or clean up by helper. Patient completes activity by themselves 4 Supervision or touching assist (CGA). [place] provide cues , steadying assist 3 The helper provides less than half the effort to complete the activity 2 The helper provides more than half the effort to complete the activity 1 Dependent. The helper does all the effort to complete an activity 7 Patient refused to complete or attempt activity 9 The patient did not perform the activity before the current illness or injury 88 Not attempted due to Medical conditions or safety concerns Transfers (B, C, W/C) (FIM): 4 (CGA for safety sit to stand from recliner. Use of FWW) Scootin Rollin Roll Left to Right (QC): 4 Supine to/from Sit: 4 Sit to/from Stand: 4 Sit to Lying (QC): 3 Sit to Stand (QC): 3 Chair/Zev-rr-Zzwdr Xfer(QC): 4 Bed to/from Chair: 4 Car Transfer (QC): 4 Gait Training Does the Patient Walk?: Yes Gait (FIM): 4 Distance (FIM): 3=150 ft Distance: 150 ft x 2 Walk 10 feet (QC): 4 Walk 50 ft with 2 Turns(QC): 4 Walk 150 ft (QC): 4 Walking 10ft/uneven surface-QC: 4 Gait Level of Assist: 4 Gait Persons Needed: 1 Gait Assistive Device: Cane Large Base Quad Wheelchair Training Does the Pt Use a Wheelchair?: No Stair Training Stairs (FIM): 1 #of Steps: 1 1 Step (curb) (QC): 3 Level of Assist: 4 Mental Status/Objective Comprehension: 7 Expression: 7 Social Interaction: 7 Problem Solvin Memory: 7 ADL-Treatment Feedin (Pt requires adaptive utensils and positioning prior to start of feeding. Pt positioned with L arm under pillow due to weakness, pt requires cues and assist in ability to clean mouth due to limited range/ weakness. Pt requires skilled techniques for stabbing food, able to complete with increased time and AE.) Eating (QC): 4 (cues) Groomin (Pt able to grab brush, completed hair grooming task. ) Oral Hygiene (QC): 4 Bathin (Pt required max A during showering tasks due to fine motor coordination and AROM. Pt completed torso, lacie area, and upper leg bathing. Pt utilized LHS to complete LB washing, pt stated he would like assist washing more thoroughly. Pt stood with SBA, required assist with BUE reaching grab bars. Pt able to maintain reach/ grasp of hand rails.) Shower/Bathe Self (QC): 2 Upper Extremity Dressin (Pt requires assist threading BUE and head. Pt able to pull down to adjust front of shirt, requires assist adjusting back of shirt. ) Upper Body Dressing (QC): 2 Lower Extremity Dressin (Pt requires assist threading BLE into breifs and pants. Pt able to pull L side up while in standing, pt c/o pain in R arm as he pulled with L. Pt requires assist pulling R side of pants up and adjusting in back. ) Lower Body Dressing (QC): 2 On/Off Footwear (QC): 4 (Pt requires assist threading bilateral socks onto sock aide. Pt able to complete sock donning with increased time/ motor planning.) Toiletin Toileting Hygiene (QC): 3 Toilet/Commode Transfer: 4 Toilet Transfer (QC): 4 Shower: 4 (CGA) Assessment/Plan Assessment and Plan Assess & Plan/Chief Complaint Assessment: Cervical spine injury Extremity weakness Constipation resolved but maintained on meds Asthma BPH Urinary incontinence placing on [place] mixed now with retention requiring cat heter in/out Plan: Monitor lungs BM regimen to be maintained on regular scheduled basis Urology consultation is appreciated Feeding self now and doing better (1) Cervical spinal stenosis Status: Acute (2) Constipation Status: Acute Qualifiers: Constipation type: slow transit constipation Qualified Codes: K59.01 - Slow transit constipation (3) Asthma Status: Chronic Qualifiers: Asthma severity: moderate Asthma persistence: unspecified Asthma complication type: unspecified Qualified Codes: J45.909 - Unspecified asthma, uncomplicated (4) Bilateral arm weakness Status: Acute (5) Injury of cervical spine Status: Acute Qualifiers: Encounter type: subsequent encounter Qualified Codes: S14.109D - Unspecified injury at unspecified level of cervical spinal cord, subsequent encounter (6) BPH (benign prostatic hyperplasia) Status: Chronic Qualifiers: Lower urinary tract symptom presence: symptoms absent Qualified Codes: N40.0 - Benign prostatic hyperplasia without lower urinary tract symptoms (7) Risk for falls Status: Acute MAYRA TORREZ DO Nov 15, 2018 10:02
--- NOTE | 2018-11-15 10:59 | Physical Therapy Daily Note ---
PT Daily Note-Current Subjective Patient in recliner pre tx, agrees to PT, has no complaints of pain. Appearance Patient in recliner post tx with nurse call, phone, tray, all needs met. Mental Status Patient Orientation: Normal For Age cervical collar Transfers Therapy Code Descriptions/Definitions Functional [place] Measure: 0=Not Assessed/NA 4=Minimal Assistance 1=Total Assistance 5=Supervision or Setup 2=Maximal Assistance 6=Modified [place] 3=Moderate Assistance 7=Complete [place] Therapy Quality Codes: 6 Independent with activity with or without an assistive device 5 Patient requires set up or clean up by helper. Patient completes activity by themselves 4 Supervision or touching assist (CGA). [place] provide cues , steadying assist 3 The helper provides less than half the effort to complete the activity 2 The helper provides more than half the effort to complete the activity 1 Dependent. The helper does all the effort to complete an activity 7 Patient refused to complete or attempt activity 9 The patient did not perform the activity before the current illness or injury 88 Not attempted due to Medical conditions or safety concerns Transfers (B, C, W/C) (FIM): 4 Sit to/from Stand: 4 Bed to/from Chair: 4 Min assist to stand from lower surfaces, CGA for transfers, occasional cues for positioning Gait Training Gait (FIM): 2 Distance: 120'x4 Gait Level of Assist: 4 Gait Persons Needed: 1 Gait Assistive Device: FWW Patient ambulates slowly, unsteady but no LOB, narrow GERARDO, slumps more the further he does and needs occasional cue to stand strait. Exercises NuStep Minutes: 15 NuStep Workload: 4 Treatments LE exercise, transfers, ambulation Assessment Current Status: Fair Progress improving endurance PT Short Term Goals Short Term Goals Time Frame: Nov 16, 2018 Gait (FIM): 4 (met) Gait Distance Comment: 200' Gait Level of Assist: 4 Gait Assistive Device: FWW PT Retirement Goals Global Logistics Analyst Goals PT Retirement Goals Time Frame: Nov 30, 2018 Transfers (B,C,W/C) (FIM): 5 Sit to Lying (QC): 6 Lying-Sitting on Side/Bed(QC): 6 Sit to Stand (QC): 4 Rollin Roll Left to Right (QC): 6 Chair/Xiv-ik-Jtatn Xfer(QC): 4 Car Transfer (QC): 4 Gait (FIM): 5 Distance: 300' Walk 10 feet (QC): 4 Walk 10ft-Uneven Surface(QC): 4 Walk 50ft with 2 Turns (QC): 4 Walk 150 ft (QC): 4 Gait Level of Assist: 5 Gait Assistive Device: FWW Stairs (FIM): 2 # of Steps: 4 1 Step (curb) (QC): 4 4 Steps (QC): 4 Stairs Level Of Assist: 5 PT Plan Problem List Problem List: Activity Tolerance, Functional Strength, Safety, Balance, Gait, Transfer, Bed Mobility, ROM Treatment/Plan Treatment Plan: Continue Plan of Care Treatment Plan: Bed Mobility, Education, Functional Activity Mann, Functional Strength, Group Therapy, Gait, Safety, Therapeutic Exercise, Transfers Treatment Duration: Nov 30, 2018 Frequency: At least 5 of 7 days/Wk (IRF) Estimated Hrs Per Day: 1.5 hours per day Patient and/or Family Agrees t: Yes Safety Risks/Education Patient Education: Gait Training, Transfer Techniques, Correct Positioning, Safety Issues Teaching Recipient: Patient Teaching Methods: Demonstration, Discussion Response to Teaching: Reinforcement Needed Time/GCodes Time In: 1000 Time Out: 1100 Total Billed Treatment Time: 60 Total Billed Treatment 1 visit EX 15' GT 45' OSORIO LOCKHART PT Nov 15, 2018 10:59
--- NOTE | 2018-11-15 11:58 | Occupational Ther Daily Note ---
OT Current Status-Daily Note Subjective Pt seen in recliner chair, pt states minimal pain at the moment. Pt agreeable to OT tx session. Mental Status/Objective Patient Orientation: Normal For Age Therapy Code Descriptions/Definitions Functional [place] Measure: 0=Not Assessed/NA 4=Minimal Assistance 1=Total Assistance 5=Supervision or Setup 2=Maximal Assistance 6=Modified [place] 3=Moderate Assistance 7=Complete [place] Attachments: Other-See Comments (C-collar) ADL-Treatment Therapy Code Descriptions/Definitions Functional [place] Measure: 0=Not Assessed/NA 4=Minimal Assistance 1=Total Assistance 5=Supervision or Setup 2=Maximal Assistance 6=Modified [place] 3=Moderate Assistance 7=Complete [place] Therapy Quality Codes: 6 Independent with activity with or without an assistive device 5 Patient requires set up or clean up by helper. Patient completes activity by themselves 4 Supervision or touching assist (CGA). [place] provide cues , steadying assist 3 The helper provides less than half the effort to complete the activity 2 The helper provides more than half the effort to complete the activity 1 Dependent. The helper does all the effort to complete an activity 7 Patient refused to complete or attempt activity 9 The patient did not perform the activity before the current illness or in [place] 88 Not attempted due to Medical conditions or safety concerns Eating (FIM): 5 (s/u for cutting food and positioning of pt. Pt requires cues at times for differring positions of hands during feeding. Pt ambulates with FWW to refridgerator, able to unwrap breakfast burrito with increased trials. Pt requests not to complete microwaving, as his will help with task. Pt ambulates to room and seated with food in front of him, pillows to support shoulder flexion to reach mouth. Pt able to use L hand to reach mouth with burrito, pt able to cut pre-cut pears into smaller pieces with L hand. Pt educated of utilization of natural movement patterns and muscles/ use of R hand. Pt repositioned for successful R hand feeding tasks. Pt demonstrates decreased coordination and nozzle operator strength of R hand. Pt able to feed self with adaptive utensil with R hand with modified grasp/ patterns. Pt completes 4 successful bites, then requires assist with L hand to reach mouth due to weakness of R.) Eating (QC): 4 (Cues and positioning prior to feeding trials.) Grooming (FIM): 5 (Pt able to complete face hygiene (just reaching from mouth to eyes) with s/u due to decreased coordination and inability to open packaging. ) Transfers (B, C, W/C) (FIM): 4 (Pt completes sit to stand from recliner with CGA. Within standard chair with bilateral arm rests, pt requires min A and cues to successfully stand at FWW. Pt states "that's so strage," referring to abilities to stand at times and not at others. Pt educated of seat height and use of momentum during stance. ) Other Treatment Pt completes feeding tasks with increased IND with R hand on this date. Pt left in recliner with all needs met and call light in reach. Education OT Patient Education: Correct positioning, Energy conservation, Modified ADL techniques, Progress toward Goal/Update tx plan, Purpose of tx/functional activities, Rehab process, Safety issues, Transfer techniques, Use of adapted equipment Teaching Recipient: Patient Teaching Methods: Demonstration, Discussion Response to Teaching: Verbalize Understanding, Return Demonstration OT Short Term Goals Short Term Goals Time Frame: Nov 16, 2018 Eating(FIM): 3 (mt) Grooming(FIM): 3 (met) Upper Body Dressing(FIM): 3 Lower Body Dressing(FIM): 3 Toilet/Commode Transfer(FIM): 4 (CGA) Additional Short Term Goals: 1-Demonstrate ADL Tasks, 2-Verbalize Understanding, 3-ImproveStrength/Mann 1=Demonstrate adherence to instructed precautions during ADL tasks. 2=Patient will verbalize/demonstrate understanding of assistive devices/modifications for ADL. 3=Patient will improve strength/tolerance for activity to enable patient to perform ADL's. OT Drill Foreman Goals [facility] Goals Time Frame: Nov 30, 2018 Eating (FIM): 5 (met) Eating (QC): 5 Groomin (met) Oral Hygiene (QC): 5 Bathing(FIM): 5 Shower/Bathe Self (QC): 4 Upper Body Dressing(FIM): 5 Upper Body Dressing (QC): 5 Lower Body Dressing(FIM): 5 Lower Body Dressing (QC): 4 On/Off Footwear (QC): 5 (met) Toileting(FIM): 5 Toileting Hygiene (QC): 5 Toilet/Commode Transfer(FIM): 5 Toilet/Commode Transfer (QC): 5 Shower Transfer(FIM): 5 Additional Goals: 1-Demonstrate ADL Tasks, 2-Verbalize Understanding, 3- ImproveStrength/Mann 1=Demonstrate adherence to instructed precautions during ADL tasks. 2=Patient will verbalize/demonstrate understanding of assistive devices/modifications for ADL. 3=Patient will improve strength/tolerance for activity to enable patient to perform ADL's. OT Education/Plan Problem List/Assessment Assessment: Decreased Activ Tolerance, Decreased UE Strength, Dependent Transfers, Impaired Coordination, Impaired Funct Balance, Impaired I ADL's, Impaired Self-Care Skills, Restricted Funct UE ROM Discharge Recommendations Plan/Recommendations: Continue POC Treatment Plan/Plan of Care Treatment,Training & Education: Yes Patient would benefit from OT for education, treatment and training to promote independence in ADL's, mobility, safety and/or upper extremity function for ADL's. Plan of Care: ADL Retraining, Functional Mobility, Group Exercise/Act as Ind, UE Funct Exercise/Act, UE Neuromus Re-Ed/Coord Treatment Duration: Nov 30, 2018 Frequency: At least 5 of 7 days/Wk (IRF) Estimated Hrs Per Day: 1.5 hours per day Agreement: Yes Rehab Potential: Fair Time/GCodes Start Time: 09:05 Stop Time: 10:00 Total Time Billed (hr/min): 55 Billed Treatment Time 1 ADL x4 (55) CHANCE PARRY OTR Nov 15, 2018 11:58
--- NOTE | 2018-11-15 13:19 | Occupational Ther Daily Note ---
OT Current Status-Daily Note Subjective Pt seen in recliner chair, agreeable to OT tx session. Pt states 4/10 pain. Mental Status/Objective Patient Orientation: Normal For Age Therapy Code Descriptions/Definitions Functional [place] Measure: 0=Not Assessed/NA 4=Minimal Assistance 1=Total Assistance 5=Supervision or Setup 2=Maximal Assistance 6=Modified [place] 3=Moderate Assistance 7=Complete [place] ADL-Treatment Therapy Code Descriptions/Definitions Functional [place] Measure: 0=Not Assessed/NA 4=Minimal Assistance 1=Total Assistance 5=Supervision or Setup 2=Maximal Assistance 6=Modified [place] 3=Moderate Assistance 7=Complete [place] Therapy Quality Codes: 6 Independent with activity with or without an assistive device 5 Patient requires set up or clean up by helper. Patient completes activity by themselves 4 Supervision or touching assist (CGA). [place] provide cues , steadying assist 3 The helper provides less than half the effort to complete the activity 2 The helper provides more than half the effort to complete the activity 1 Dependent. The helper does all the effort to complete an activity 7 Patient refused to complete or attempt activity 9 The patient did not perform the activity before the current illness or injury 88 Not attempted due to Medical conditions or safety concerns Other Treatment Pt sit to stand with CGA. Pt ambulates with FWW to therapy gym with CGA. Pt states he has no feeling in R index DIP to fingertip. Pt states he isn't able to feel light touch, during sensation testing pt states no feeling with vision to DIP of thumb as well. Pt states he hasn't felt sensation in these areas since before surgery. Pt states, "It is getting better," but is unsure if it is due to "thinking" or "actually getting better." Pt completes pinching exercises bilaterally with digits I-III with forearm supported on arm rest. Pt reaches in different planes below shoulder height to encourage functional reach during shoulder flexion/ stability during functional movements. Pt completes reaching with L hand, able to complete 10 pinches consecutively to theraputty while flexing shoulder. Pt completes shoulder flexion with R arm, able to complete 4 pinches with R shoulder flexed before requiring rest. Muscle spasms noted in R forearm. Pt completes an additional 5 while supporting R arm in flexion. Pt completes R hand manipulation task with arm supported by OT to compensate sensation impairment with vision. Pt able to complete gripping exercises and pinching with vision with greater success. Skilled cues and placement utilized for proper body mechanics and functional hand positions during task. Pt educated on compensated movements, educated on visual compensation to practice proper movements. Pt completes transferring small ball from L to R hand to encourage bilateral integration skills. Pt's present at end of session. Pt's states she would like to shower him this afternoon, pt's educated that nursing or nursing project coordinator staff needs to be present during shower for safety. Pt's nodded and verbalized understanding. Pt left with call light in reach, all needs met. Pt in recliner chair. Education OT Patient Education: Correct positioning, Energy conservation, Exercise program, Home exercise program, Instructions to caregiver, Purpose of tx/functional activities, Rehab process, Safety issues, Transfer techniques Teaching Recipient: Patient Teaching Methods: Demonstration, Discussion Response to Teaching: Verbalize Understanding, Return Demonstration OT Short Term Goals Short Term Goals Time Frame: Nov 16, 2018 Eating(FIM): 3 (mt) Grooming(FIM): 3 (met) Upper Body Dressing(FIM): 3 Lower Body Dressing(FIM): 3 Toilet/Commode Transfer(FIM): 4 (CGA) Additional Short Term Goals: 1-Demonstrate ADL Tasks, 2-Verbalize Understanding, 3-ImproveStrength/Mann 1=Demonstrate adherence to instructed precautions during ADL tasks. 2=Patient will verbalize/demonstrate understanding of assistive devices/modif ications for ADL. 3=Patient will improve strength/tolerance for activity to enable patient to perform ADL's. OT Flare Stitcher Goals [facility] Goals Time Frame: Nov 30, 2018 Eating (FIM): 5 (met) Eating (QC): 5 Groomin (met) Oral Hygiene (QC): 5 Bathing(FIM): 5 Shower/Bathe Self (QC): 4 Upper Body Dressing(FIM): 5 Upper Body Dressing (QC): 5 Lower Body Dressing(FIM): 5 Lower Body Dressing (QC): 4 On/Off Footwear (QC): 5 (met) Toileting(FIM): 5 Toileting Hygiene (QC): 5 Toilet/Commode Transfer(FIM): 5 Toilet/Commode Transfer (QC): 5 Shower Transfer(FIM): 5 Additional Goals: 1-Demonstrate ADL Tasks, 2-Verbalize Understanding, 3- ImproveStrength/Mann 1=Demonstrate adherence to instructed precautions during ADL tasks. 2=Patient will verbalize/demonstrate understanding of assistive devices/modifications for ADL. 3=Patient will improve strength/tolerance for activity to enable patient to perform ADL's. OT Education/Plan Problem List/Assessment Assessment: Decreased Activ Tolerance, Decreased UE Strength, Dependent Transfers, Impaired Coordination, Impaired I ADL's, Impaired Self-Care Skills Discharge Recommendations Plan/Recommendations: Continue POC Treatment Plan/Plan of Care Treatment,Training & Education: Yes Patient would benefit from OT for education, treatment and training to promote independence in ADL's, mobility, safety and/or upper extremity function for ADL's. Plan of Care: ADL Retraining, Functional Mobility, Group Exercise/Act as Ind, UE Funct Exercise/Act, UE Neuromus Re-Ed/Coord Treatment Duration: Nov 30, 2018 Frequency: At least 5 of 7 days/Wk (IRF) Estimated Hrs Per Day: 1.5 hours per day Agreement: Yes Rehab Potential: Fair Time/GCodes Start Time: 10:55 Stop Time: 11:30 Total Time Billed (hr/min): 35 Billed Treatment Time 1 EX x2 (35) CHANCE PARRY OTR Nov 15, 2018 13:19
--- NOTE | 2018-11-15 13:56 | NUR ---
Patient is scheduled for a follow-up appointment with Dr. Starr, tomorrow at 9:15. According to RN, spouse is prepared to transport patient to/from appointment.
--- NOTE | 2018-11-15 15:43 | Physical Therapy Daily Note ---
PT Daily Note-Current Subjective Patient in recliner pre tx, agrees to PT, has 7/10 pain, nurse notified and he got pain meds. Appearance Patient in recliner post tx with nurse call, phone, tray, all needs met. Mental Status Patient Orientation: Normal For Age Transfers Therapy Code Descriptions/Definitions Functional [place] Measure: 0=Not Assessed/NA 4=Minimal Assistance 1=Total Assistance 5=Supervision or Setup 2=Maximal Assistance 6=Modified [place] 3=Moderate Assistance 7=Complete [place] Therapy Quality Codes: 6 Independent with activity with or without an assistive device 5 Patient requires set up or clean up by helper. Patient completes activity by themselves 4 Supervision or touching assist (CGA). [place] provide cues , steadying assist 3 The helper provides less than half the effort to complete the activity 2 The helper provides more than half the effort to complete the activity 1 Dependent. The helper does all the effort to complete an activity 7 Patient refused to complete or attempt activity 9 The patient did not perform the activity before the current illness or injury 88 Not attempted due to Medical conditions or safety concerns Transfers (B, C, W/C) (FIM): 4 Sit to/from Stand: 4 Bed to/from Chair: 4 Gait Training Gait (FIM): 2 Distance: 120'x2 Gait Level of Assist: 4 Gait Persons Needed: 1 Gait Assistive Device: FWW unsteady, tired, patient had one LOB that needed therapist assist Exercises Standing: Hip Abduction, Hamstring curls, Heel/toe raises, Marching, Mini squats Standing Reps: 15 Treatments transfers, ambulation, LE exercise Assessment Current Status: Poor Progress Patient was very fatigued this afternoon, worse balance, had one LOB. PT Short Term Goals Short Term Goals Time Frame: Nov 16, 2018 Gait (FIM): 4 (met) Gait Distance Comment: 200' Gait Level of Assist: 4 Gait Assistive Device: FWW PT Corporate Controller Goals Snf Goals PT Corporate Controller Goals Time Frame: Nov 30, 2018 Transfers (B,C,W/C) (FIM): 5 Sit to Lying (QC): 6 Lying-Sitting on Side/Bed(QC): 6 Sit to Stand (QC): 4 Rollin Roll Left to Right (QC): 6 Chair/Hiy-dd-Lzqgy Xfer(QC): 4 Car Transfer (QC): 4 Gait (FIM): 5 Distance: 300' Walk 10 feet (QC): 4 Walk 10ft-Uneven Surface(QC): 4 Walk 50ft with 2 Turns (QC): 4 Walk 150 ft (QC): 4 Gait Level of Assist: 5 Gait Assistive Device: FWW Stairs (FIM): 2 # of Steps: 4 1 Step (curb) (QC): 4 4 Steps (QC): 4 Stairs Level Of Assist: 5 PT Plan Problem List Problem List: Activity Tolerance, Functional Strength, Safety, Balance, Gait, Transfer, Bed Mobility, ROM Treatment/Plan Treatment Plan: Continue Plan of Care Treatment Plan: Bed Mobility, Education, Functional Activity Mann, Functional Strength, Group Therapy, Gait, Safety, Therapeutic Exercise, Transfers Treatment Duration: Nov 30, 2018 Frequency: At least 5 of 7 days/Wk (IRF) Estimated Hrs Per Day: 1.5 hours per day Patient and/or Family Agrees t: Yes Safety Risks/Education Patient Education: Gait Training, Transfer Techniques, Correct Positioning, Safety Issues Teaching Recipient: Patient Teaching Methods: Demonstration, Discussion Response to Teaching: Reinforcement Needed Time/GCodes Time In: 1510 Time Out: 1540 Total Billed Treatment Time: 30 Total Billed Treatment 1 visit EX 15' GT 15' OSORIO LOCKHART PT Nov 15, 2018 15:43
[2018-11-15 17:26] VITALS: BP 144/77
--- NOTE | 2018-11-15 19:13 | NUR ---
bedside report received from NITIN TAVARES, assume care of pt
--- NOTE | 2018-11-15 20:33 | NUR ---
pt given Dulcolax suppository & Senokot, refused miralax, c/o pain level 4/10 on numeric scale, Lortab 5 1 tab po given
--- NOTE | 2018-11-15 21:10 | NUR ---
pt has small hard brown BM, pain level 2/10 on numeric scale
[2018-11-16] MEDS: HYDROcodone/APAP 5 MG/325 MG (LORTAB) TAB PO PRN ×3 (00:45→18:11)
--- NOTE | 2018-11-16 00:45 | NUR ---
c/o pain level 5/10 on numeric scale, lortab 5 1 tab po given, voided 25ml light gabriel colored urine
--- NOTE | 2018-11-16 00:50 | NUR ---
bladder scan showed 117ml
--- NOTE | 2018-11-16 01:25 | NUR ---
rates pain 2/10 on numeric scale
[2018-11-16 05:15] VITALS: BP 128/67
--- NOTE | 2018-11-16 06:30 | NUR ---
c/o pain level 4/10 on numeric scale, Lortab 5 1 tab po given
--- NOTE | 2018-11-16 07:07 | NUR ---
bedside report given to NITIN TAVARES
--- NOTE | 2018-11-16 07:10 | NUR ---
pain level 2/10 on numeric scale
[2018-11-16] MEDS: RT-ADVAIR HFA 115/21 MCG PER PUFF IH SCH ×2 (07:30→21:06)
[2018-11-16] MEDS: TAMSULOSIN 0.4 MG (FLOMAX) CAP PO SCH ×2 (07:49→21:07)
--- NOTE | 2018-11-16 08:54 | Physical Therapy Daily Note ---
PT Daily Note-Current Subjective Pt sitting in chair in [facility] awaiting W/C for appt. Nurse retrieving W/C, BOAT TENDER will assist to car for transfer. Pain Location: No Pain Reported Mental Status Patient Orientation: Person, Place, Time, Situation Transfers Therapy Code Descriptions/Definitions Functional [place] Measure: 0=Not Assessed/NA 4=Minimal Assistance 1=Total Assistance 5=Supervision or Setup 2=Maximal Assistance 6=Modified [place] 3=Moderate Assistance 7=Complete [place] Therapy Quality Codes: 6 Independent with activity with or without an assistive device 5 Patient requires set up or clean up by helper. Patient completes activity by themselves 4 Supervision or touching assist (CGA). [place] provide cues , steadying assist 3 The helper provides less than half the effort to complete the activity 2 The helper provides more than half the effort to complete the activity 1 Dependent. The helper does all the effort to complete an activity 7 Patient refused to complete or attempt activity 9 The patient did not perform the activity before the current illness or injury 88 Not attempted due to Medical conditions or safety concerns Scootin Sit to/from Stand: 4 Sit to Stand (QC): 4 Treatments Pt transfers from chair to W/C then assisted by BOAT TENDER in W/C to car for car transfer for outside facility appt. Pt has all needs met and BOAT TENDER will see pt after return from appt. Assessment Current Status: Good Progress Pt has pleasant affect and follows directions well. Pt demonstrates increase in strength to gain independence of transfers & mobility. PT Short Term Goals Short Term Goals Time Frame: Nov 16, 2018 Gait (FIM): 4 (met) Gait Distance Comment: 200' Gait Level of Assist: 4 Gait Assistive Device: FWW PT Alf Goals Alf Goals PT Alf Goals Time Frame: Nov 30, 2018 Transfers (B,C,W/C) (FIM): 5 Sit to Lying (QC): 6 Lying-Sitting on Side/Bed(QC): 6 Sit to Stand (QC): 4 Rollin Roll Left to Right (QC): 6 Chair/Jpm-sm-[place] Xfer(QC): 4 Car Transfer (QC): 4 Gait (FIM): 5 Distance: 300' Walk 10 feet (QC): 4 Walk 10ft-Uneven Surface(QC): 4 Walk 50ft with 2 Turns (QC): 4 Walk 150 ft (QC): 4 Gait Level of Assist: 5 Gait Assistive Device: FWW Stairs (FIM): 2 # of Steps: 4 1 Step (curb) (QC): 4 4 Steps (QC): 4 Stairs Level Of Assist: 5 PT Plan Problem List Problem List: Activity Tolerance, Functional Strength, Safety, Balance, Gait, Transfer Treatment/Plan Treatment Plan: Continue Plan of Care Treatment Plan: Bed Mobility, Education, Functional Activity Mann, Functional Strength, Group Therapy, Gait, Safety, Therapeutic Exercise, Transfers Treatment Duration: Nov 30, 2018 Frequency: At least 5 of 7 days/Wk (IRF) Estimated Hrs Per Day: 1.5 hours per day Patient and/or Family Agrees t: Yes Safety Risks/Education Patient Education: Transfer Techniques, Correct Positioning, Safety Issues Teaching Recipient: Patient Teaching Methods: Discussion Response to Teaching: Verbalize Understanding Time/GCodes Time In: 805 Time Out: 825 Total Billed Treatment Time: 20 Total Billed Treatment 1, GLORIA (20m) NADYA STRICKLAND PTA Nov 16, 2018 08:54
[2018-11-16] MEDS: POLYETHYLENE GLYCOL 17 GM (MIRALAX) PACK PO SCH ×2 (09:00→21:11)
[2018-11-16] MEDS: SENNA W/DOCUSATE (SENOKOT S) TABLET PO SCH ×2 (09:00→21:11)
--- NOTE | 2018-11-16 12:36 | Occupational Ther Daily Note ---
OT Current Status-Daily Note Subjective Pt seen in room, agreeable to OT tx session. present at start of session. Mental Status/Objective Patient Orientation: Normal For Age Therapy Code Descriptions/Definitions Functional [place] Measure: 0=Not Assessed/NA 4=Minimal Assistance 1=Total Assistance 5=Supervision or Setup 2=Maximal Assistance 6=Modified [place] 3=Moderate Assistance 7=Complete [place] C collar (hard) ADL-Treatment Therapy Code Descriptions/Definitions Functional [place] Measure: 0=Not Assessed/NA 4=Minimal Assistance 1=Total Assistance 5=Supervision or Setup 2=Maximal Assistance 6=Modified [place] 3=Moderate Assistance 7=Complete [place] Therapy Quality Codes: 6 Independent with activity with or without an assistive device 5 Patient requires set up or clean up by helper. Patient completes activity by themselves 4 Supervision or touching assist (CGA). [place] provide cues , steadying assist 3 The helper provides less than half the effort to complete the activity 2 The helper provides more than half the effort to complete the activity 1 Dependent. The helper does all the effort to complete an activity 7 Patient refused to complete or attempt activity 9 The patient did not perform the activity before the current illness or injury 88 Not attempted due to Medical conditions or safety concerns On/Off Footwear (QC): 4 (cues during task) Other Treatment Pt completes sit to stand with SBA. Pt ambulates with FWW, stating shoes are tall and it is difficult to lift to clear foot. Pt states he will only wear socks at home, pt completes sock doffing with dressing stick, dons one sock onto sock aide with difficulty/ increased time. pt given separate sock aide without foam pad to encourage easier manipulation and success; pt completes with cues for positioning with success. Pt completes P/AROM exercises within range of comfort to encourage ROM, muscle/ manipulation control. Pt then completes stretching/ AROM exercises on frictionless table, completing in all vertical planes, stating tightness in RTC muscles but no intense pain. Pt completes PROM above 90* in order to encourage muscle elongation and prevent contracture. Pt completes bed mobility task on mat with cues and demonstration. Pt requires min A for lowering body/ lifting legs to clear mat while laying supine, and requires mod A for supine to sit. Pt returns to room, sits in recliner chair, all needs met, call light in reach, and daughter present. Education OT Patient Education: Correct positioning, Exercise program, Home exercise program, Instructions to caregiver, Modified ADL techniques, Progress toward Goal/Update tx plan, Purpose of tx/functional activities, Reviewed precautions, Rehab process, Safety issues, Transfer techniques, Use of adapted equipment Teaching Recipient: Patient, Family Teaching Methods: Demonstration, Discussion Response to Teaching: Verbalize Understanding, Return Demonstration OT Short Term Goals Short Term Goals Time Frame: Nov 16, 2018 Eating(FIM): 3 (mt) Grooming(FIM): 3 (met) Upper Body Dressing(FIM): 3 Lower Body Dressing(FIM): 3 Toilet/Commode Transfer(FIM): 4 (CGA) Additional Short Term Goals: 1-Demonstrate ADL Tasks, 2-Verbalize Understanding, 3-ImproveStrength/Mann 1=Demonstrate adherence to instructed precautions during ADL tasks. 2=Patient will verbalize/demonstrate understanding of assistive devices/modifications for ADL. 3=Patient will improve strength/tolerance for activity to enable patient to perform ADL's. OT Territory Sales Manager Medical Goals Residential Goals Time Frame: Nov 30, 2018 Eating (FIM): 5 (met) Eating (QC): 5 Groomin (met) Oral Hygiene (QC): 5 Bathing(FIM): 5 Shower/Bathe Self (QC): 4 Upper Body Dressing(FIM): 5 Upper Body Dressing (QC): 5 Lower Body Dressing(FIM): 5 Lower Body Dressing (QC): 4 On/Off Footwear (QC): 5 (met) Toileting(FIM): 5 Toileting Hygiene (QC): 5 Toilet/Commode Transfer(FIM): 5 Toilet/Commode Transfer (QC): 5 Shower Transfer(FIM): 5 Additional Goals: 1-Demonstrate ADL Tasks, 2-Verbalize Understanding, 3- ImproveStrength/Mann 1=Demonstrate adherence to instructed precautions during ADL tasks. 2=Patient will verbalize/demonstrate understanding of assistive d evices/modifications for ADL. 3=Patient will improve strength/tolerance for activity to enable patient to perform ADL's. OT Education/Plan Discharge Recommendations Plan/Recommendations: Continue POC Treatment Plan/Plan of Care Patient would benefit from OT for education, treatment and training to promote independence in ADL's, mobility, safety and/or upper extremity function for ADL's. Plan of Care: ADL Retraining, Functional Mobility, Group Exercise/Act as Ind, UE Funct Exercise/Act, UE Neuromus Re-Ed/Coord Treatment Duration: Nov 30, 2018 Frequency: At least 5 of 7 days/Wk (IRF) Estimated Hrs Per Day: 1.5 hours per day Agreement: Yes Rehab Potential: Fair Time/GCodes Start Time: 11:00 Stop Time: 12:00 Total Time Billed (hr/min): 60 Billed Treatment Time 1 ADL, EX x 3 (60) CHANCE PARRY OTR Nov 16, 2018 12:36
--- NOTE | 2018-11-16 15:58 | Occupational Ther Daily Note ---
OT Current Status-Daily Note Subjective Pt seen in recliner, pt's daughter and present. Pt no c/o pain, agreeable to tx session. Mental Status/Objective Patient Orientation: Normal For Age Therapy Code Descriptions/Definitions Functional [place] Measure: 0=Not Assessed/NA 4=Minimal Assistance 1=Total Assistance 5=Supervision or Setup 2=Maximal Assistance 6=Modified [place] 3=Moderate Assistance 7=Complete [place] C collar ADL-Treatment Therapy Code Descriptions/Definitions Functional [place] Measure: 0=Not Assessed/NA 4=Minimal Assistance 1=Total Assistance 5=Supervision or Setup 2=Maximal Assistance 6=Modified [place] 3=Moderate Assistance 7=Complete [place] Therapy Quality Codes: 6 Independent with activity with or without an assistive device 5 Patient requires set up or clean up by helper. Patient completes activity by themselves 4 Supervision or touching assist (CGA). [place] provide cues , steadying assist 3 The helper provides less than half the effort to complete the activity 2 The helper provides more than half the effort to complete the activity 1 Dependent. The helper does all the effort to complete an activity 7 Patient refused to complete or attempt activity 9 The patient did not perform the activity before the current illness or injury 88 Not attempted due to Medical conditions or safety concerns Eating (FIM): 5 (s/u, pt positioned for feeding tasks and skilled cues followed for increasing IND with tasks.) Eating (QC): 4 (cues and s/u) Upper Body (FIM): 3 ([place]: Pt requires cues for positioning of arms, removes R arm with assist. Pt able to remove L arm, requires assist to remove overhe ad.Donning: Pt able to thread L arm with shirt handed to him, threads R arm with use of dressing stick to move over shoulder. Pt unable to thread overhead, pt's assists with donning overhead. ) Transfers (B, C, W/C) (FIM): 4 (CGA for lowering to toilet. Pt states they have high rise toilet at home.) Toilet/Commode Transfer (FIM): 4 (CGA) Toilet Transfer (QC): 4 (CGA) Other Treatment Pt completes feeding with use of skilled cues/ techniques. Pt and states they are concerned with bed mobility and dressing tasks with more IND. Pt completes dressing UB with cues to / pt. Pt's states she will help as much as needed but states she knows he has to go through the motions to regain strength. Pt's educated on PROM to maintain muscle elasticity, pt educated on "thumb up" to maintain proper positioning during shoulder PROM. Pt and educated that if any feelings of tightness within shoulder/ scapula to not e xceed 90*. Pt's return-demonstrated PROM to elbow and shoulder within different planes. Pt states need for bathroom, sit to stand with SBA; use of FWW for ambulation. Pt requires assist with lowering pants and CGA for lowering to toilet. Pt left with , pull-string (call light) in reach, all needs met. Education OT Patient Education: Correct positioning, Home exercise program, Instructions to caregiver, Modified ADL techniques, Purpose of tx/functional activities, R eviewed precautions, Rehab process, Safety issues, Transfer techniques, Use of adapted equipment Teaching Recipient: Patient Teaching Methods: Demonstration, Discussion Response to Teaching: Verbalize Understanding, Return Demonstration OT Short Term Goals Short Term Goals Time Frame: Nov 16, 2018 Eating(FIM): 3 (mt) Grooming(FIM): 3 (met) Upper Body Dressing(FIM): 3 Lower Body Dressing(FIM): 3 Toilet/Commode Transfer(FIM): 4 (CGA) Additional Short Term Goals: 1-Demonstrate ADL Tasks, 2-Verbalize Understanding, 3-ImproveStrength/Mann 1=Demonstrate adherence to instructed precautions during ADL tasks. 2=Patient will verbalize/demonstrate understanding of assistive devices/modifications for ADL. 3=Patient will improve strength/tolerance for activity to enable patient to perform ADL's. OT Multiple Pressure Riveter Operator Goals Multiple Pressure Riveter Operator Goals Time Frame: Nov 30, 2018 Eating (FIM): 5 (met) Eating (QC): 5 Groomin (met) Oral Hygiene (QC): 5 Bathing(FIM): 5 Shower/Bathe Self (QC): 4 Upper Body Dressing(FIM): 5 Upper Body Dressing (QC): 5 Lower Body Dressing(FIM): 5 Lower Body Dressing (QC): 4 On/Off Footwear (QC): 5 (met) Toileting(FIM): 5 Toileting Hygiene (QC): 5 Toilet/Commode Transfer(FIM): 5 Toilet/Commode Transfer (QC): 5 Shower Transfer(FIM): 5 Additional Goals: 1-Demonstrate ADL Tasks, 2-Verbalize Understanding, 3- ImproveStrength/Mann 1=Demonstrate adherence to instructed precautions during ADL tasks. 2=Patient will verbalize/demonstrate understanding of assistive devices/modifications for ADL. 3=Patient will improve strength/tolerance for activity to enable patient to perform ADL's. OT Education/Plan Problem List/Assessment Assessment: Decreased Activ Tolerance, Decreased UE Strength, Impaired Coordination, Impaired I ADL's, Impaired Self-Care Skills, Restricted Funct UE ROM Discharge Recommendations Plan/Recommendations: Continue POC Treatment Plan/Plan of Care Treatment,Training & Education: Yes Patient would benefit from OT for education, treatment and training to promote independence in ADL's, mobility, safety and/or upper extremity function for ADL's. Plan of Care: ADL Retraining, Functional Mobility, Group Exercise/Act as Ind, UE Funct Exercise/Act, UE Neuromus Re-Ed/Coord Treatment Duration: Nov 30, 2018 Frequency: At least 5 of 7 days/Wk (IRF) Estimated Hrs Per Day: 1.5 hours per day Agreement: Yes Rehab Potential: Fair Time/GCodes Start Time: 12:55 Stop Time: 13:25 Total Time Billed (hr/min): 30 Billed Treatment Time 1 FA, ADL (30) CHANCE PARRY OTR Nov 16, 2018 15:58
--- NOTE | 2018-11-16 16:01 | Physical Therapy Daily Note ---
PT Daily Note-Current Subjective Pt sitting in recliner in room upon arrival. Sp is present. Pt agrees to PT and reports wanting to practice sit to supine transfers and bed mobility. Pain Numeric Pain Scale: 5-Moderate Pain Location: Lower Location Body Site: Back Pain Description: Ache, Tightness, Tingling Mental Status Patient Orientation: Person, Place, Time, Situation Attachments: Other-See Comments (Cervical Collar) Transfers Therapy Code Descriptions/Definitions Functional [place] Measure: 0=Not Assessed/NA 4=Minimal Assistance 1=Total Assistance 5=Supervision or Setup 2=Maximal Assistance 6=Modified [place] 3=Moderate Assistance 7=Complete [place] Therapy Quality Codes: 6 Independent with activity with or without an assistive device 5 Patient requires set up or clean up by helper. Patient completes activity by themselves 4 Supervision or touching assist (CGA). [place] provide cues , steadying assist 3 The helper provides less than half the effort to complete the activity 2 The helper provides more than half the effort to complete the activity 1 Dependent. The helper does all the effort to complete an activity 7 Patient refused to complete or attempt activity 9 The patient did not perform the activity before the current illness or injury 88 Not attempted due to Medical conditions or safety concerns Scootin Supine to/from Sit: 4 Sit to/from Stand: 5 Sit to Lying (QC): 4 Sit to Stand (QC): 5 Treatments Pt practices transfers from EOB to Supine and vice versa. IT INSTRUCTOR includes Sp in training. Pt resting Supine in bed at end of tx with all needs met, call light in hand. Assessment Current Status: Good Progress Pt able to follow VC well and pt & sp had no questions over transfers at this time. PT Short Term Goals Short Term Goals Time Frame: Nov 16, 2018 Gait (FIM): 4 (met) Gait Distance Comment: 200' Gait Level of Assist: 4 Gait Assistive Device: FWW PT Nursing Home Goals Nursing Home Goals PT Nursing Home Goals Time Frame: Nov 30, 2018 Transfers (B,C,W/C) (FIM): 5 Sit to Lying (QC): 6 Lying-Sitting on Side/Bed(QC): 6 Sit to Stand (QC): 4 Rollin Roll Left to Right (QC): 6 Chair/Jwu-pe-Knvih Xfer(QC): 4 Car Transfer (QC): 4 Gait (FIM): 5 Distance: 300' Walk 10 feet (QC): 4 Walk 10ft-Uneven Surface(QC): 4 Walk 50ft with 2 Turns (QC): 4 Walk 150 ft (QC): 4 Gait Level of Assist: 5 Gait Assistive Device: FWW Stairs (FIM): 2 # of Steps: 4 1 Step (curb) (QC): 4 4 Steps (QC): 4 Stairs Level Of Assist: 5 PT Plan Problem List Problem List: Activity Tolerance, Functional Strength, Transfer Treatment/Plan Treatment Plan: Continue Plan of Care Treatment Plan: Bed Mobility, Education, Functional Activity Mann, Functional Strength, Group Therapy, Gait, Safety, Therapeutic Exercise, Transfers Treatment Duration: Nov 30, 2018 Frequency: At least 5 of 7 days/Wk (IRF) Estimated Hrs Per Day: 1.5 hours per day Patient and/or Family Agrees t: Yes Safety Risks/Education Patient Education: Transfer Techniques, Correct Positioning, Instructions to Caregiver, Safety Issues Teaching Recipient: Patient, Significant Other Teaching Methods: Discussion Response to Teaching: Verbalize Understanding Time/GCodes Time In: 1430 Time Out: 1500 Total Billed Treatment Time: 30 Total Billed Treatment 1, FA x2 (30m) NADYA STRICKLAND PTA Nov 16, 2018 16:01
[2018-11-16 17:30] VITALS: BP 144/69
--- NOTE | 2018-11-16 18:04 | NUR ---
Pt out to Dr. youssef surgical appt. @ 8am. No paperwork returned with patient/family upon return from appt. Family relays to RN, ok'd to wear soft collar for meals only, hard collar on at all other times. [place] removed and was to start Bactrim for small reddened area. No order's received throughout day, with phone call and message left at Dr. Lewis office. Phone call passed to oncall provider, Dr. Plascencia orders Patient to begin bactrim TID, beginning tonight. No other orders relayed to nurse at this time.
--- NOTE | 2018-11-16 19:13 | NUR ---
bedside report received from KAPIL TAVARES, assume care of pt
--- NOTE | 2018-11-16 20:35 | NUR ---
back to bed with 1 person assist & walker
--- NOTE | 2018-11-16 21:04 | NUR ---
refused [facility]
[2018-11-16] MEDS: TRIM/SULFAMETH 160/800 (SEPTRA DS) TAB PO SCH (21:06)
[2018-11-16] MEDS: MELATONIN 3 MG TABLET PO PRN (21:07)
--- NOTE | 2018-11-16 21:15 | NUR ---
voiding 100ml clear yellow urine at a time, bladder scan showed 238
[2018-11-17 06:04] VITALS: BP 135/51
--- NOTE | 2018-11-17 07:21 | NUR ---
bedside report given to INGRIS TAVARES
[2018-11-17] MEDS: RT-ADVAIR HFA 115/21 MCG PER PUFF IH SCH ×2 (07:52→19:10)
--- NOTE | 2018-11-17 08:00 | NUR ---
STATES "NOT AFRAID OF THE BED ANYMORE". SLEPT WELL IN IT LAST NIGHT AND NO INCREASE IN NECK PAIN. STATES STILL VOIDING THE SAME AMOUNT AT HOME (100 CC), BUT CONTINUES TO VOID MORE FREQUENTLY NOW AND ALSO INCONTINENT MORE OFTEN.
[2018-11-17] MEDS: HYDROcodone/APAP 5 MG/325 MG (LORTAB) TAB PO PRN (08:10)
[2018-11-17] MEDS: SENNA W/DOCUSATE (SENOKOT S) TABLET PO SCH ×2 (08:10→20:11)
[2018-11-17] MEDS: TAMSULOSIN 0.4 MG (FLOMAX) CAP PO SCH ×2 (08:10→20:10)
[2018-11-17] MEDS: POLYETHYLENE GLYCOL 17 GM (MIRALAX) PACK PO SCH ×2 (08:13→20:11)
[2018-11-17] MEDS: TRIM/SULFAMETH 160/800 (SEPTRA DS) TAB PO SCH ×2 (09:26→17:07)
--- NOTE | 2018-11-17 09:28 | Physical Therapy Daily Note ---
PT Daily Note-Current Subjective Pt sitting in recliner upon arrival. Pt agrees to PT but asked for BAMBI hoses to be applied. Pain Numeric Pain Scale: 5-Moderate Pain Location: Lower Location Body Site: Back Pain Description: Ache, Tightness, Tingling Mental Status Patient Orientation: Person, Place, Time, Situation Attachments: Other-See Comments (Cervical Collar) Transfers Therapy Code Descriptions/Definitions Functional [place] Measure: 0=Not Assessed/NA 4=Minimal Assistance 1=Total Assistance 5=Supervision or Setup 2=Maximal Assistance 6=Modified [place] 3=Moderate Assistance 7=Complete [place] Therapy Quality Codes: 6 Independent with activity with or without an assistive device 5 Patient requires set up or clean up by helper. Patient completes activity by themselves 4 Supervision or touching assist (CGA). [place] provide cues , steadying assist 3 The helper provides less than half the effort to complete the activity 2 The helper provides more than half the effort to complete the activity 1 Dependent. The helper does all the effort to complete an activity 7 Patient refused to complete or attempt activity 9 The patient did not perform the activity before the current illness or injury 88 Not attempted due to Medical conditions or safety concerns Scootin Sit to/from Stand: 4 Sit to Stand (QC): 4 Weight Bearing Weight Bearing/Tolerated Weight Bearing/Tolerated Gait Training Does the Patient Walk?: Yes Gait (FIM): 4 Distance (FIM): 3=150 ft Distance: 150' Walk 10 feet (QC): 5 Walk 50 ft with 2 Turns(QC): 5 Walk 150 ft (QC): 5 Gait Level of Assist: 5 Gait Persons Needed: 1 Gait Assistive Device: FWW Pt walks with slow cordell, steady but apprehensive about falling, steady/no LOB. Wheelchair Training Does the Pt Use a Wheelchair?: No Exercises Seated Therapy Exercises: Ankle pumps, Long arc quads, Hip flexion, Kicking activity, Hamstring Curls Seated Reps: 20 NuStep Minutes: 15 NuStep Workload: 4 Treatments Pt is assisted by MOLECULAR PATHOLOGIST in donning BAMBI hoses for swelling as Dr Mercado arrives. Pt transfers from recliner to standing using FWW at CGA-Min A. Pt ambulates in hallway then uses NuStep for 15m at WL 4. Pt takes short RB then completes Seated EX in chair. Pt returns to room to rest in recliner as OT arrives. Pt has all needs met. Assessment Current Status: Good Progress Pt is gaining strength and independence of tasks although still anxious. PT Short Term Goals Short Term Goals Time Frame: Nov 16, 2018 Gait (FIM): 4 (met) Gait Distance Comment: 200' Gait Level of Assist: 4 Gait Assistive Device: FWW PT Drag Out Man Goals Drag Out Man Goals PT Assisted Goals Time Frame: Nov 30, 2018 Transfers (B,C,W/C) (FIM): 5 Sit to Lying (QC): 6 Lying-Sitting on Side/Bed(QC): 6 Sit to Stand (QC): 4 Rollin Roll Left to Right (QC): 6 Chair/Zwm-cp-Mmaya Xfer(QC): 4 Car Transfer (QC): 4 Gait (FIM): 5 Distance: 300' Walk 10 feet (QC): 4 Walk 10ft-Uneven Surface(QC): 4 Walk 50ft with 2 Turns (QC): 4 Walk 150 ft (QC): 4 Gait Level of Assist: 5 Gait Assistive Device: FWW Stairs (FIM): 2 # of Steps: 4 1 Step (curb) (QC): 4 4 Steps (QC): 4 Stairs Level Of Assist: 5 PT Plan Problem List Problem List: Activity Tolerance, Functional Strength, Transfer Treatment/Plan Treatment Plan: Continue Plan of Care Treatment Plan: Bed Mobility, Education, Functional Activity Mann, Functional Strength, Group Therapy, Gait, Safety, Therapeutic Exercise, Transfers Treatment Duration: Nov 30, 2018 Frequency: At least 5 of 7 days/Wk (IRF) Estimated Hrs Per Day: 1.5 hours per day Patient and/or Family Agrees t: Yes Safety Risks/Education Patient Education: Gait Training, Transfer Techniques, Correct Positioning, Safety Issues Teaching Recipient: Patient Teaching Methods: Discussion Response to Teaching: Verbalize Understanding Time/GCodes Time In: 815 Time Out: 815 Total Billed Treatment Time: 60 Total Billed Treatment 1, GT (15m), EX x2 (30m) & FA (15m) NADYA STRICKLAND PTA Nov 17, 2018 09:28
--- NOTE | 2018-11-17 10:00 | NUR ---
VERIFIED WITH DR. HUMPHREY'S OFFICE (TALKED TO SAMIRA) THAT BACTRIM SHOULD BE GIVEN BID X 10 DAYS.
--- NOTE | 2018-11-17 10:00 | NUR ---
DR. CASON HERE TO DO BEDSIDE CYSTO.
--- NOTE | 2018-11-17 10:45 | Occupational Ther Daily Note ---
OT Current Status-Daily Note Subjective Pt seen in room, up in recliner, agreeable to OT. Reported no pain except where cervical collar pressed into the back of his head and under his chin. He has been told that he can remove the collar to eat and he was encouraged to do so to relieve pressure. Appearance Alert, cooperative Mental Status/Objective Therapy Code Descriptions/Definitions Functional [place] Measure: 0=Not Assessed/NA 4=Minimal Assistance 1=Total Assistance 5=Supervision or Setup 2=Maximal Assistance 6=Modified [place] 3=Moderate Assistance 7=Complete [place] ADL-Treatment Pt wanted to shower and change clothes. present and doing the ADLs with him, with family education and help as needed. Mod assist to get up from recliner initially. Walked [facility], FWW to bathroom. Pt educ shower technique, transfer into shower with [facility], grab bar, FWW. He lowered himself to shower bench [facility]. Help to wash hair and back. He washed and dried arms but not under arms, chest, abdomen, lacie front, upper and lower legs, using shower bench, grab bars, hand held shower, long handled sponge. Pt educ technique for drying legs with sponge. leaned side to side while washed bottom. Pulled up from shower bench with SBA. walked CGA, FWW to toilet and transferred to toilet [facility], grab bar, to dress. Needed help to pull pants up and down over hips, get them over feet but he pulled them up to hips. Mod assist doffing and donning shirt. Used dressing stick to take slipper socks off but unable to do TEDs. After dressing, walked back to recliner [facility], FWW. Pt educ technique to help donning TEDs. Pt used both socks aids to don slipper sock and needed just a little help with each one. Pt educ hand placement for getting out of recliner and he stood with [facility], FWW. Walked to bed [facility], FWW and was able to get both legs into bed. Help to adjust pillows. Therapy Code Descriptions/Definitions Functional [place] Measure: 0=Not Assessed/NA 4=Minimal Assistance 1=Total Assistance 5=Supervision or Setup 2=Maximal Assistance 6=Modified [place] 3=Moderate Assistance 7=Complete [place] Therapy Quality Codes: 6 Independent with activity with or without an assistive device 5 Patient requires set up or clean up by helper. Patient completes activity by themselves 4 Supervision or touching assist (CGA). [place] provide cues , steadying assist 3 The helper provides less than half the effort to complete the activity 2 The helper provides more than half the effort to complete the activity 1 Dependent. The helper does all the effort to complete an activity 7 Patient refused to complete or attempt activity 9 The patient did not perform the activity before the current illness or injury 88 Not attempted due to Medical conditions or safety concerns Bathing (FIM): 3 Bathing Location: L Upper Leg, R Upper Leg, L Lower Leg (including foot), R Lower Leg (including foot), Chest, Abdomen, Perineal Area Shower/Bathe Self (QC): 3 Upper Body (FIM): 3 Upper Body Dressing (QC): 3 Lower Body Dressing (FIM): 2 Lower Body Dressing (QC): 3 Shower Transfer(FIM): 4 Other Treatment Once in bed, did 5 reps bilat AAROM UEs, then 5 reps each arm alone. Needed mod assist initially to get shoulder flex but, with repetitions, decreased to min assist. education on how to do AAROM with him, with return demo. Pt left up in bed, all needs met. Education OT Patient Education: Exercise program, Modified ADL techniques, Progress toward Goal/Update tx plan, Purpose of tx/functional activities, Safety issues, Transfer techniques, Use of adapted equipment Teaching Recipient: Patient, Family Teaching Methods: Demonstration, Discussion Response to Teaching: Verbalize Understanding, Return Demonstration, Reinforcement Needed OT Short Term Goals Short Term Goals Time Frame: Nov 16, 2018 Eating(FIM): 3 (mt) Grooming(FIM): 3 (met) Upper Body Dressing(FIM): 3 Lower Body Dressing(FIM): 3 Toilet/Commode Transfer(FIM): 4 (CGA) Additional Short Term Goals: 1-Demonstrate ADL Tasks, 2-Verbalize Understanding, 3-ImproveStrength/Mann 1=Demonstrate adherence to instructed precautions during ADL tasks. 2=Patient will verbalize/demonstrate understanding of assistive devices/modifications for ADL. 3=Patient will improve strength/tolerance for activity to enable patient to perform ADL's. OT Architect Goals Architect Goals Time Frame: Nov 30, 2018 Eating (FIM): 5 (met) Eating (QC): 5 Groomin (met) Oral Hygiene (QC): 5 Bathing(FIM): 5 Shower/Bathe Self (QC): 4 Upper Body Dressing(FIM): 5 Upper Body Dressing (QC): 5 Lower Body Dressing(FIM): 5 Lower Body Dressing (QC): 4 On/Off Footwear (QC): 5 (met) Toileting(FIM): 5 Toileting Hygiene (QC): 5 Toilet/Commode Transfer(FIM): 5 Toilet/Commode Transfer (QC): 5 Shower Transfer(FIM): 5 Additional Goals: 1-Demonstrate ADL Tasks, 2-Verbalize Understanding, 3- ImproveStrength/Mann 1=Demonstrate adherence to instructed precautions during ADL tasks. 2=Patient will verbalize/demonstrate understanding of assistive devices/modifications for ADL. 3=Patient will improve strength/tolerance for activity to enable patient to perform ADL's. OT Education/Plan Discharge Recommendations Plan/Recommendations: Continue POC Treatment Plan/Plan of Care Patient would benefit from OT for education, treatment and training to promote independence in ADL's, mobility, safety and/or upper extremity function for ADL's. Plan of Care: ADL Retraining, Functional Mobility, Group Exercise/Act as Ind, UE Funct Exercise/Act, UE Neuromus Re-Ed/Coord Treatment Duration: Nov 30, 2018 Frequency: At least 5 of 7 days/Wk (IRF) Estimated Hrs Per Day: 1.5 hours per day Agreement: Yes Rehab Potential: Fair Time/GCodes Start Time: 09:15 Stop Time: 10:35 Total Time Billed (hr/min): 80 Billed Treatment Time visit, 60 minutes ADL, 10 minutes functional activity, 10 minutes exercise (charged ADL4, FA) ANISH BERMUDEZ OT Nov 17, 2018 10:45
--- NOTE | 2018-11-17 10:46 | PM&R Progress Note ---
Subjective HPI/CC On Admission Date Seen by Provider: Nov 16, 2018 Time Seen by Provider: 13:00 Chief complaint: Cervical spine stenosis status post predictable injury with upper extremity weakness History of present illness: This is an 78-year-old white male of Dr. Velarde in [facility] who is known to me from cervical spine surgery by Dr. Starr on 11/02/2018 at [facility] who is had a long wait for insurance approval from [facility] to be admitted to inpatient rehab due to severe cervical spine muscle weakness of the arms and legs. He had such severe stenosis that he has residual neurologic deficit to the upper extremities more than lower extremities. His bowels or not moving well but they did about 4 days ago he has not had any lung problems or prostate problems during his hospital course and [place] [facility]. He thinks that he gets too drowsy with taking 2 of the hydrocodone pain pills in addition for the muscle relaxant so will decrease the dose on both but keep him comfortable nonetheless. His prior level of functioning was independent without the use of assistive devices and he will return home with his and supportive family. Subjective/Events-last exam [place] were removed. Bactrim initiated but will clarify that or it should be Bactroban topical, we will confer with Dr. Starr. Slept in bed for the first time for five hours last night. Cystoscopy today and after rounds Dr. Payan diagnosed a bladder tumor that appeared to be superficial but needs resection so likely will allow his recovery to continue and then do an outpatient resection with follow-up cystoscopies. No catheter is needed since we stopped the [place]. Conferred with RN Checked meds and labs Reviewed therapy notes Review of Systems General: Fatigue Neurological: Weakness, Numbness, Incoordination Objective Exam Vital Signs Vital Signs Date Time Temp Pulse Resp B/P (MAP) Pulse Ox O2 Delivery O2 Flow Rate FiO2 11/17/18 17:21 36.1 68 16 105/70 (82) 95 Room Air Capillary Refill : General Appearance: No Apparent Distress, WD/WN, Chronically ill, Thin HEENT: PERRL/EOMI, Normal ENT Inspection, Pharynx Normal, Moist Mucous Membranes Neck: Full Range of Motion, Normal Inspection, Non Tender, Supple Respiratory: Chest Non Tender, Lungs Clear, Normal Breath Sounds, No Accessory Muscle Use, No Respiratory Distress Cardiovascular: Regular Rate, Rhythm, No Edema, No Gallop, No JVD, No Murmur Gastrointestinal: No Organomegaly, No Pulsatile Mass, Non Tender, Soft, Abnormal Bowel Sounds, Distended Back: Normal Inspection, No CVA Tenderness, No Vertebral Tenderness Extremity: Normal Capillary Refill, Normal Inspection, Normal Range of Motion, Non Tender, No Calf Tenderness, No Pedal Edema Neurologic/Psychiatric: Alert, Oriented x3, Normal Mood/Affect, raised printer II-XII Norm as Tested, Motor Weakness (upper extremities 2/5 bilateral, legs 4/5) Skin: Normal Color, Warm/Dry Lymphatic: No Adenopathy Results/Procedures Lab Patient resulted labs reviewed. FIM Transfers Therapy Code Descriptions/Definitions Functional [place] Measure: 0=Not Assessed/NA 4=Minimal Assistance 1=Total Assistance 5=Supervision or Setup 2=Maximal Assistance 6=Modified [place] 3=Moderate Assistance 7=Complete [place] Therapy Quality Codes: 6 Independent with activity with or without an assistive device 5 Patient requires set up or clean up by helper. Patient completes activity by themselves 4 Supervision or touching assist (CGA). [place] provide cues , steadying assist 3 The helper provides less than half the effort to complete the activity 2 The helper provides more than half the effort to complete the activity 1 Dependent. The helper does all the effort to complete an activity 7 Patient refused to complete or attempt activity 9 The patient did not perform the activity before the current illness or i njury 88 Not attempted due to Medical conditions or safety concerns Transfers (B, C, W/C) (FIM): 4 (CGA for lowering to toilet. Pt states they have high rise toilet at home.) Scootin Rollin Roll Left to Right (QC): 4 Supine to/from Sit: 4 Sit to/from Stand: 4 Sit to Lying (QC): 4 Sit to Stand (QC): 4 Chair/Vjd-vb-Ifykh Xfer(QC): 4 Bed to/from Chair: 4 Car Transfer (QC): 4 Gait Training Does the Patient Walk?: Yes Gait (FIM): 4 Distance (FIM): 3=150 ft Distance: 150' Walk 10 feet (QC): 5 Walk 50 ft with 2 Turns(QC): 5 Walk 150 ft (QC): 5 Walking 10ft/uneven surface-QC: 4 Gait Level of Assist: 5 Gait Persons Needed: 1 Gait Assistive Device: FWW Wheelchair Training Does the Pt Use a Wheelchair?: No Stair Training Stairs (FIM): 1 #of Steps: 1 1 Step (curb) (QC): 3 Level of Assist: 4 Mental Status/Objective Comprehension: 7 Expression: 7 Social Interaction: 7 Problem Solvin Memory: 7 ADL-Treatment Feedin (s/u, pt positioned for feeding tasks and skilled cues followed for increasing IND with tasks.) Eating (QC): 4 (cues and s/u) Groomin (Pt able to complete face hygiene (just reaching from mouth to eyes) with s/u due to decreased coordination and inability to open packaging. ) Oral Hygiene (QC): 4 Bathin (Pt required max A during showering tasks due to fine motor coordination and AROM. Pt completed torso, lacie area, and upper leg bathing. Pt utilized LHS to complete LB washing, pt stated he would like assist washing more thoroughly. Pt stood with SBA, required assist with BUE reaching grab bars. Pt able to maintain reach/ grasp of hand rails.) Shower/Bathe Self (QC): 2 Upper Extremity Dressin ([place]: Pt requires cues for positioning of arms, removes R arm with assist. Pt able to remove L arm, requires assist to remove overhead.Donning: Pt able to thread L arm with shirt handed to him, threads R arm with use of dressing stick to move over shoulder. Pt unable to thread overhead, pt's assists with donning overhead. ) Upper Body Dressing (QC): 2 Lower Extremity Dressin (Pt requires assist threading BLE into breifs and pants. Pt able to pull L side up while in standing, pt c/o pain in R arm as he pulled with L. Pt requires assist pulling R side of pants up and adjusting in back. ) Lower Body Dressing (QC): 2 On/Off Footwear (QC): 4 (cues during task) Toiletin Toileting Hygiene (QC): 3 Toilet/Commode Transfer: 4 (CGA) Toilet Transfer (QC): 4 (CGA) Shower: 4 (CGA) Assessment/Plan Assessment and Plan Assess & Plan/Chief Complaint Assessment: Cervical spine injury Extremity weakness Constipation resolved but maintained on meds Asthma BPH Bladder mass Plan: Monitor lungs BM regimen to be maintained on regular scheduled basis Urology consultation is appreciated and christina since the cysto dx bladder tumor Feeding self now and doing better (1) Cervical spinal stenosis Status: Acute (2) Constipation Status: Acute Qualifiers: Constipation type: slow transit constipation Qualified Codes: K59.01 - Slow transit constipation (3) Asthma Status: Chronic Qualifiers: Asthma severity: moderate Asthma persistence: unspecified Asthma complication type: unspecified Qualified Codes: J45.909 - Unspecified asthma, uncomplicated (4) Bilateral arm weakness Status: Acute (5) Injury of cervical spine Status: Acute Qualifiers: Encounter type: subsequent encounter Qualified Codes: S14.109D - Unspecified injury at unspecified level of cervical spinal cord, subsequent encounter (6) BPH (benign prostatic hyperplasia) Status: Chronic Qualifiers: Lower urinary tract symptom presence: symptoms absent Qualified Codes: N40.0 - Benign prostatic hyperplasia without lower urinary tract symptoms (7) Risk for falls Status: Acute (8) Bladder mass MAYRA TORREZ DO Nov 17, 2018 10:46
--- NOTE | 2018-11-17 10:47 | PM&R Progress Note ---
Subjective HPI/CC On Admission Date Seen by Provider: Nov 16, 2018 Time Seen by Provider: 09:00 Chief complaint: Cervical spine stenosis status post predictable injury with upper extremity weakness History of present illness: This is an 78-year-old white male of Dr. Velarde in [facility] who is known to me from cervical spine surgery by Dr. Starr on 11/02/2018 at [facility] who is had a long wait for insurance approval from [facility] to be admitted to inpatient rehab due to severe cervical spine muscle weakness of the arms and legs. He had such severe stenosis that he has residual neurologic deficit to the upper extremities more than lower extremities. His bowels or not moving well but they did about 4 days ago he has not had any lung problems or prostate problems during his hospital course and [facility] at [facility]. He thinks that he gets too drowsy with taking 2 of the hydrocodone pain pills in addition for the muscle relaxant so will decrease the dose on both but keep him comfortable nonetheless. His prior level of functioning was independent without the use of assistive devices and he will return home with his and supportive family. Subjective/Events-last exam Late entry I saw the patient after he returned from Dr Starr office Feels really motivated and ready to sleep in his bed Conferred with RN Checked meds and labs Reviewed therapy notes Objective Exam Vital Signs Vital Signs Date Time Temp Pulse Resp B/P (MAP) Pulse Ox O2 Delivery O2 Flow Rate FiO2 11/17/18 17:21 36.1 68 16 105/70 (82) 95 Room Air Capillary Refill : General Appearance: No Apparent Distress, WD/WN, Chronically ill, Thin HEENT: PERRL/EOMI, Normal ENT Inspection, Pharynx Normal, Moist Mucous Membranes Neck: Full Range of Motion, Normal Inspection, Non Tender, Supple Respiratory: Chest Non Tender, Lungs Clear, Normal Breath Sounds, No Accessory Muscle Use, No Respiratory Distress Cardiovascular: Regular Rate, Rhythm, No Edema, No Gallop, No JVD, No Murmur Gastrointestinal: No Organomegaly, No Pulsatile Mass, Non Tender, Soft, Abnormal Bowel Sounds, Distended Back: Normal Inspection, No CVA Tenderness, No Vertebral Tenderness Extremity: Normal Capillary Refill, Normal Inspection, Normal Range of Motion, Non Tender, No Calf Tenderness, No Pedal Edema Neurologic/Psychiatric: Alert, Oriented x3, Normal Mood/Affect, business performance specialist II-XII Norm as Tested, Motor Weakness (upper extremities 2/5 bilateral, legs 4/5) Skin: Normal Color, Warm/Dry Lymphatic: No Adenopathy Results/Procedures Lab Patient resulted labs reviewed. FIM Transfers Therapy Code Descriptions/Definitions Functional [place] Measure: 0=Not Assessed/NA 4=Minimal Assistance 1=Total Assistance 5=Supervision or Setup 2=Maximal Assistance 6=Modified [place] 3=Moderate Assistance 7=Complete [place] Therapy Quality Codes: 6 Independent with activity with or without an assistive device 5 Patient requires set up or clean up by helper. Patient completes activity by themselves 4 Supervision or touching assist (CGA). [place] provide cues , steadying assist 3 The helper provides less than half the effort to complete the activity 2 The helper provides more than half the effort to complete the activity 1 Dependent. The helper does all the effort to complete an activity 7 Patient refused to complete or attempt activity 9 The patient did not perform the activity before the current illness or injury 88 Not attempted due to Medical conditions or safety concerns Transfers (B, C, W/C) (FIM): 4 (CGA for lowering to toilet. Pt states they have high rise toilet at home.) Scootin Rollin Roll Left to Right (QC): 4 Supine to/from Sit: 4 Sit to/from Stand: 4 Sit to Lying (QC): 4 Sit to Stand (QC): 4 Chair/Uyo-dq-Ukbks Xfer(QC): 4 Bed to/from Chair: 4 Car Transfer (QC): 4 Gait Training Does the Patient Walk?: Yes Gait (FIM): 4 Distance (FIM): 3=150 ft Distance: 150' Walk 10 feet (QC): 5 Walk 50 ft with 2 Turns(QC): 5 Walk 150 ft (QC): 5 Walking 10ft/uneven surface-QC: 4 Gait Level of Assist: 5 Gait Persons Needed: 1 Gait Assistive Device: FWW Wheelchair Training Does the Pt Use a Wheelchair?: No Stair Training Stairs (FIM): 1 #of Steps: 1 1 Step (curb) (QC): 3 Level of Assist: 4 Mental Status/Objective Comprehension: 7 Expression: 7 Social Interaction: 7 Problem Solvin Memory: 7 ADL-Treatment Feedin (s/u, pt positioned for feeding tasks and skilled cues followed for increasing IND with tasks.) Eating (QC): 4 (cues and s/u) Groomin (Pt able to complete face hygiene (just reaching from mouth to eyes) with s/u due to decreased coordination and inability to open packaging. ) Oral Hygiene (QC): 4 Bathin (Pt required max A during showering tasks due to fine motor coordination and AROM. Pt completed torso, lacie area, and upper leg bathing. Pt utilized LHS to complete LB washing, pt stated he would like assist washing more thoroughly. Pt stood with SBA, required assist with BUE reaching grab bars. Pt able to maintain reach/ grasp of hand rails.) Shower/Bathe Self (QC): 2 Upper Extremity Dressin ([place]: Pt requires cues for positioning of arms, removes R arm with assist. Pt able to remove L arm, requires assist to remove overhead.Donning: Pt able to thread L arm with shirt handed to him, threads R arm with use of dressing stick to move over shoulder. Pt unable to thread overhead, pt's assists with donning overhead. ) Upper Body Dressing (QC): 2 Lower Extremity Dressin (Pt requires assist threading BLE into breifs and pants. Pt able to pull L side up while in standing, pt c/o pain in R arm as he pulled with L. Pt requires assist pulling R side of pants up and adjusting in back. ) Lower Body Dressing (QC): 2 On/Off Footwear (QC): 4 (cues during task) Toiletin Toileting Hygiene (QC): 3 Toilet/Commode Transfer: 4 (CGA) Toilet Transfer (QC): 4 (CGA) Shower: 4 (CGA) Assessment/Plan Assessment and Plan Assess & Plan/Chief Complaint Assessment: Cervical spine injury Extremity weakness Constipation resolved but maintained on meds Asthma BPH Urinary incontinence placing on Sanctura mixed now with retention requiring catheter in/out Plan: Monitor lungs BM regimen to be maintained on regular scheduled basis Urology consultation is appreciated Feeding self now and doing better (1) Cervical spinal stenosis Status: Acute (2) Constipation Status: Acute Qualifiers: Constipation type: slow transit constipation Qualified Codes: K59.01 - Slow transit constipation (3) Asthma Status: Chronic Qualifiers: Asthma severity: moderate Asthma persistence: unspecified Asthma complication type: unspecified Qualified Codes: J45.909 - Unspecified asthma, uncomplicated (4) Bilateral arm weakness Status: Acute (5) Injury of cervical spine Status: Acute Qualifiers: Encounter type: subsequent encounter Qualified Codes: S14.109D - Unspecified injury at unspecified level of cervical spinal cord, subsequent encounter (6) BPH (benign prostatic hyperplasia) Status: Chronic Qualifiers: Lower urinary tract symptom presence: symptoms absent Qualified Codes: N40.0 - Benign prostatic hyperplasia without lower urinary tract symptoms (7) Risk for falls Status: Acute MAYRA TORREZ DO Nov 17, 2018 10:46
--- NOTE | 2018-11-17 13:17 | Occupational Ther Daily Note ---
OT Current Status-Daily Note Subjective Pt seen in room, up in recliner, agreeable to OT. No pain mentioned. Mental Status/Objective Therapy Code Descriptions/Definitions Functional [place] Measure: 0=Not Assessed/NA 4=Minimal Assistance 1=Total Assistance 5=Supervision or Setup 2=Maximal Assistance 6=Modified [place] 3=Moderate Assistance 7=Complete [place] ADL-Treatment Pt reported that he was able to feed himself finger foods once they were cut up, using L hand and assisting with R. He demonstrated how he can feed himself ice cream using bend spoon and plate guard. Pt educ use of dycem or other non-skid surface under plate or bow. It made scooping easier. Pt educ technique for using rocker knife and looked at several in catalogue. Pt's thinks they have something at home that will work and will bring it in to try. Pt left up in recliner, all needs met. Therapy Code Descriptions/Definitions Functional [place] Measure: 0=Not Assessed/NA 4=Minimal Assistance 1=Total Assistance 5=Supervision or Setup 2=Maximal Assistance 6=Modified [place] 3=Moderate Assistance 7=Complete [place] Therapy Quality Codes: 6 Independent with activity with or without an assistive device 5 Patient requires set up or clean up by helper. Patient completes activity by themselves 4 Supervision or touching assist (CGA). [place] provide cues , steadying assist 3 The helper provides less than half the effort to complete the activity 2 The helper provides more than half the effort to complete the activity 1 Dependent. The helper does all the effort to complete an activity 7 Patient refused to complete or attempt activity 9 The patient did not perform the activity before the current illness or injury 88 Not attempted due to Medical conditions or safety concerns Eating (FIM): 5 (setup) Education OT Patient Education: Modified ADL techniques, Progress toward Goal/Update tx plan Teaching Recipient: Patient, Family Teaching Methods: Demonstration, Discussion Response to Teaching: Return Demonstration OT Short Term Goals Short Term Goals Time Frame: Nov 16, 2018 Eating(FIM): 3 (mt) Grooming(FIM): 3 (met) Upper Body Dressing(FIM): 3 Lower Body Dressing(FIM): 3 Toilet/Commode Transfer(FIM): 4 (CGA) Additional Short Term Goals: 1-Demonstrate ADL Tasks, 2-Verbalize Understanding, 3-ImproveStrength/Mann 1=Demonstrate adherence to instructed precautions during ADL tasks. 2=Patient will verbalize/demonstrate understanding of assistive devices /modifications for ADL. 3=Patient will improve strength/tolerance for activity to enable patient to perform ADL's. OT Half-Way Goals Chain Saw Driver Goals Time Frame: Nov 30, 2018 Eating (FIM): 5 (met) Eating (QC): 5 Groomin (met) Oral Hygiene (QC): 5 Bathing(FIM): 5 Shower/Bathe Self (QC): 4 Upper Body Dressing(FIM): 5 Upper Body Dressing (QC): 5 Lower Body Dressing(FIM): 5 Lower Body Dressing (QC): 4 On/Off Footwear (QC): 5 (met) Toileting(FIM): 5 Toileting Hygiene (QC): 5 Toilet/Commode Transfer(FIM): 5 Toilet/Commode Transfer (QC): 5 Shower Transfer(FIM): 5 Additional Goals: 1-Demonstrate ADL Tasks, 2-Verbalize Understanding, 3- ImproveStrength/Mann 1=Demonstrate adherence to instructed precautions during ADL tasks. 2=Patient will verbalize/demonstrate understanding of assistive devices/modifications for ADL. 3=Patient will improve strength/tolerance for activity to enable patient to perform ADL's. OT Education/Plan Discharge Recommendations Plan/Recommendations: Continue POC Treatment Plan/Plan of Care Patient would benefit from OT for education, treatment and training to promote independence in ADL's, mobility, safety and/or upper extremity function for ADL's. Plan of Care: ADL Retraining, Functional Mobility, Group Exercise/Act as Ind, UE Funct Exercise/Act, UE Neuromus Re-Ed/Coord Treatment Duration: Nov 30, 2018 Frequency: At least 5 of 7 days/Wk (IRF) Estimated Hrs Per Day: 1.5 hours per day Agreement: Yes Rehab Potential: Fair Time/GCodes Start Time: 12:58 Stop Time: 13:10 Total Time Billed (hr/min): 12 Billed Treatment Time visit, 12 minutes ADL ANISH BERMUDEZ OT Nov 17, 2018 13:17
--- NOTE | 2018-11-17 14:00 | NUR ---
SEE BLADDER SCAN INTERVENTION. HAS NOT NEEDED TO BE STRAIGHT CATH'D TODAY.
--- NOTE | 2018-11-17 14:11 | Physical Therapy Daily Note ---
PT Daily Note-Current Subjective Pt sitting in recliner upon arrival. Pt agrees to PT. Sp & daughter have a couple of questions about household set up upon D/C. Pain Numeric Pain Scale: 4 Location Body Site: Neck Pain Description: Ache Mental Status Patient Orientation: Person, Place, Time, Situation Attachments: Other-See Comments (Cervical Collar) Transfers Therapy Code Descriptions/Definitions Functional [place] Measure: 0=Not Assessed/NA 4=Minimal Assistance 1=Total Assistance 5=Supervision or Setup 2=Maximal Assistance 6=Modified [place] 3=Moderate Assistance 7=Complete [place] Therapy Quality Codes: 6 Independent with activity with or without an assistive device 5 Patient requires set up or clean up by helper. Patient completes activity by themselves 4 Supervision or touching assist (CGA). [place] provide cues , steadying assist 3 The helper provides less than half the effort to complete the activity 2 The helper provides more than half the effort to complete the activity 1 Dependent. The helper does all the effort to complete an activity 7 Patient refused to complete or attempt activity 9 The patient did not perform the activity before the current illness or injury 88 Not attempted due to Medical conditions or safety concerns Scootin Sit to/from Stand: 4 Sit to Stand (QC): 4 Weight Bearing Weight Bearing/Tolerated Weight Bearing/Tolerated Treatments GENERAL PRACTITIONER discusses bathroom setup especially with in regards to best place for grab bars for toileting and showering. GENERAL PRACTITIONER also discussed with pt, sp & daughter pt's progress, equipment needed and what happens over the next week for tx until possible D/C. Pt transfers from recliner to standing using FWW at CGA. Pt uses restroom at end of tx. Assessment Current Status: Good Progress Pt gaining strength and independence of tasks especially transfers and mobility. Pt demonstrates some nervousness though. PT Short Term Goals Short Term Goals Time Frame: Nov 16, 2018 Gait (FIM): 4 (met) Gait Distance Comment: 200' Gait Level of Assist: 4 Gait Assistive Device: FWW PT Usp Goals Usp Goals PT Usp Goals Time Frame: Nov 30, 2018 Transfers (B,C,W/C) (FIM): 5 Sit to Lying (QC): 6 Lying-Sitting on Side/Bed(QC): 6 Sit to Stand (QC): 4 Rollin Roll Left to Right (QC): 6 Chair/Yjh-bl-Cupxo Xfer(QC): 4 Car Transfer (QC): 4 Gait (FIM): 5 Distance: 300' Walk 10 feet (QC): 4 Walk 10ft-Uneven Surface(QC): 4 Walk 50ft with 2 Turns (QC): 4 Walk 150 ft (QC): 4 Gait Level of Assist: 5 Gait Assistive Device: FWW Stairs (FIM): 2 # of Steps: 4 1 Step (curb) (QC): 4 4 Steps (QC): 4 Stairs Level Of Assist: 5 PT Plan Problem List Problem List: Activity Tolerance, Functional Strength, Transfer Treatment/Plan Treatment Plan: Continue Plan of Care Treatment Plan: Bed Mobility, Education, Functional Activity Mann, Functional Strength, Group Therapy, Gait, Safety, Therapeutic Exercise, Transfers Treatment Duration: Nov 30, 2018 Frequency: At least 5 of 7 days/Wk (IRF) Estimated Hrs Per Day: 1.5 hours per day Patient and/or Family Agrees t: Yes Safety Risks/Education Patient Education: Transfer Techniques, Correct Positioning, Instructions to Caregiver, Safety Issues Teaching Recipient: Patient, Family Teaching Methods: Discussion Response to Teaching: Verbalize Understanding Time/GCodes Time In: 1330 Time Out: 1400 Total Billed Treatment Time: 30 Total Billed Treatment 1, FA x2 (30m) NADYA STRICKLAND GENERAL PRACTITIONER Nov 17, 2018 14:11
--- NOTE | 2018-11-17 16:33 | NUR ---
This advertising writer met with patient, spouse and daughter to discuss Team Conference Summary. Patient and family agreeable to information discussed as well as a continued stay with a review on Wednesday, November 21. Will continue to follow for appropriate discharge planning.
[2018-11-17 17:21] VITALS: BP 105/70
[2018-11-17] MEDS: ACETAMINOPHEN 500 MG TAB (TYLENOL) PO PRN ×2 (18:55→23:55)
[2018-11-17] MEDS: BACLOFEN 10 MG (LIORESAL) TAB PO PRN (23:53)
[2018-11-18] MEDS: HYDROcodone/APAP 5 MG/325 MG (LORTAB) TAB PO PRN ×2 (01:58→08:12)
[2018-11-18 06:31] VITALS: BP 115/74
[2018-11-18] MEDS: TRIM/SULFAMETH 160/800 (SEPTRA DS) TAB PO SCH ×2 (06:46→16:47)
[2018-11-18] MEDS: RT-ADVAIR HFA 115/21 MCG PER PUFF IH SCH ×2 (07:48→18:52)
--- NOTE | 2018-11-18 08:00 | NUR ---
CONTINUES TO FEEL IMPROVEMENT DAILY. STRENGTH INCREASES IN ARMS DAILY - LEFT ARM STRONGER THAN LEFT AND USES LEFT ARM TO HELP PUSH UP RIGHT ARM. IS STILL VERY HAPPY THAT EXPELLED A CONTINENT STOOL YESTERDAY - THE FIRST CONTINENT ONE SINCE SURGERY. STATES SLEPT POORLY LAST NIGHT. TOLERATED LYING ON RIGHT SIDE IN BED WELL, BUT "JUST FELT WIDE AWAKE".
[2018-11-18] MEDS: SENNA W/DOCUSATE (SENOKOT S) TABLET PO SCH ×2 (08:03→21:01)
[2018-11-18] MEDS: FINASTERIDE (PROSCAR) 5 MG TAB PO SCH (08:03)
[2018-11-18] MEDS: TAMSULOSIN 0.4 MG (FLOMAX) CAP PO SCH ×2 (08:03→21:01)
[2018-11-18] MEDS: POLYETHYLENE GLYCOL 17 GM (MIRALAX) PACK PO SCH ×2 (08:12→21:01)
--- NOTE | 2018-11-18 09:32 | Progress Note - Urology ---
Progress Note-Urology Progress Notes/Assess & Plan Progress/Assessment & Plan PLAN TURBT OP IN COUPLE OF WEEKS. DR TORREZ AND PATIENT AGREABLE Final Diagnosis URINE RETENTION, INCONTINENCE, AND BLADDER TUMOR REHANA CASON MD Nov 18, 2018 09:32
--- NOTE | 2018-11-18 11:01 | PM&R Progress Note ---
Subjective HPI/CC On Admission Date Seen by Provider: Nov 18, 2018 Time Seen by Provider: 08:30 Chief complaint: Cervical spine stenosis status post predictable injury with upper extremity weakness History of present illness: This is an 78-year-old white male of Dr. Velarde in [facility] who is known to me from cervical spine surgery by Dr. Starr on 11/02/2018 at [facility] who is had a long wait for insurance approval from [facility] to be admitted to inpatient rehab due to severe cervical spine muscle weakness of the arms and legs. He had such severe stenosis that he has residual neurologic deficit to the upper extremities more than lower extremities. His bowels or not moving well but they did about 4 days ago he has not had any lung problems or prostate problems during his hospital course and [place] [facility]. He thinks that he gets too drowsy with taking 2 of the hydrocodone pain pills in addition for the muscle relaxant so will decrease the dose on both but keep him comfortable nonetheless. His prior level of functioning was independent without the use of assistive devices and he will return home with his and supportive family. Subjective/Events-last exam Bladder tumor discussed and he will need to be discharged from inpatient rehab and have that procedure the following week because that would help his moral overall if he is able to be discharged home then come back for the procedure. First continent bowel since surgery today. Bactrim for ten days BID for incision redness. Post-void residual is only 67. Slept in bed last night. Conferred with RN Checked meds and labs Reviewed therapy notes Review of Systems General: Fatigue Objective Exam Vital Signs Vital Signs Date Time Temp Pulse Resp B/P (MAP) Pulse Ox O2 Delivery O2 Flow Rate FiO2 11/18/18 18:52 92 Room Air 11/18/18 17:09 36.2 81 18 143/80 (101) Capillary Refill : Less Than 3 Seconds General Appearance: No Apparent Distress, WD/WN, Chronically ill, Thin HEENT: PERRL/EOMI, Normal ENT Inspection, Pharynx Normal, Moist Mucous Membranes Neck: Full Range of Motion, Normal Inspection, Non Tender, Supple Respiratory: Chest Non Tender, Lungs Clear, Normal Breath Sounds, No Accessory Muscle Use, No Respiratory Distress Cardiovascular: Regular Rate, Rhythm, No Edema, No Gallop, No JVD, No Murmur Gastrointestinal: No Organomegaly, No Pulsatile Mass, Non Tender, Soft, Abnormal Bowel Sounds, Distended Back: Normal Inspection, No CVA Tenderness, No Vertebral Tenderness Extremity: Normal Capillary Refill, Normal Inspection, Normal Range of Motion, Non Tender, No Calf Tenderness, No Pedal Edema Neurologic/Psychiatric: Alert, Oriented x3, Normal Mood/Affect, casket coverer II-XII Norm as Tested, Motor Weakness (upper extremities 2/5 bilateral, legs 4/5) Skin: Normal Color, Warm/Dry Lymphatic: No Adenopathy Results/Procedures Lab Patient resulted labs reviewed. FIM Transfers Therapy Code Descriptions/Definitions Functional [place] Measure: 0=Not Assessed/NA 4=Minimal Assistance 1=Total Assistance 5=Supervision or Setup 2=Maximal Assistance 6=Modified [place] 3=Moderate Assistance 7=Complete [place] Therapy Quality Codes: 6 Independent with activity with or without an assistive device 5 Patient requires set up or clean up by helper. Patient completes activity by themselves 4 Supervision or touching assist (CGA). [place] provide cues , steadying assist 3 The helper provides less than half the effort to complete the activity 2 The helper provides more than half the effort to complete the activity 1 Dependent. The helper does all the effort to complete an activity 7 Patient refused to complete or attempt activity 9 The patient did not perform the activity before the current illness or injury 88 Not attempted due to Medical conditions or safety concerns Transfers (B, C, W/C) (FIM): 4 (CGA for lowering to toilet. Pt states they have high rise toilet at home.) Scootin Rollin Roll Left to Right (QC): 4 Supine to/from Sit: 4 Sit to/from Stand: 4 Sit to Lying (QC): 4 Sit to Stand (QC): 4 Chair/Lac-en-Dkcfz Xfer(QC): 4 Bed to/from Chair: 4 Car Transfer (QC): 4 Gait Training Does the Patient Walk?: Yes Gait (FIM): 4 Distance (FIM): 3=150 ft Distance: 150' Walk 10 feet (QC): 5 Walk 50 ft with 2 Turns(QC): 5 Walk 150 ft (QC): 5 Walking 10ft/uneven surface-QC: 4 Gait Level of Assist: 5 Gait Persons Needed: 1 Gait Assistive Device: FWW Wheelchair Training Does the Pt Use a Wheelchair?: No Stair Training Stairs (FIM): 1 #of Steps: 1 1 Step (curb) (QC): 3 Level of Assist: 4 Mental Status/Objective Comprehension: 7 Expression: 7 Social Interaction: 7 Problem Solvin Memory: 7 ADL-Treatment Feedin (setup) Eating (QC): 4 (cues and s/u) Groomin (Pt able to complete face hygiene (just reaching from mouth to eyes) with s/u due to decreased coordination and inability to open packaging. ) Oral Hygiene (QC): 4 Bathin Bathing Location: L Upper Leg, R Upper Leg, L Lower Leg (including foot), R Lower Leg (including foot), Chest, Abdomen, Perineal Area Shower/Bathe Self (QC): 3 Upper Extremity Dressin Upper Body Dressing (QC): 3 Lower Extremity Dressin Lower Body Dressing (QC): 3 On/Off Footwear (QC): 4 (cues during task) Toiletin Toileting Hygiene (QC): 3 Toilet/Commode Transfer: 4 (CGA) Toilet Transfer (QC): 4 (CGA) Shower: 4 Assessment/Plan Assessment and Plan Assess & Plan/Chief Complaint Assessment: Cervical spine injury Extremity weakness Constipation resolved but maintained on meds Asthma BPH Bladder mass Plan: Monitor lungs BM regimen to be maintained on regular scheduled basis Urology consultation is appreciated and christina since the cysto dx bladder tumor Feeding self now and doing better Monitor for falls (1) Cervical spinal stenosis Status: Acute (2) Constipation Status: Acute Qualifiers: Constipation type: slow transit constipation Qualified Codes: K59.01 - Slow transit constipation (3) Asthma Status: Chronic Qualifiers: Asthma severity: moderate Asthma persistence: unspecified Asthma complication type: unspecified Qualified Codes: J45.909 - Unspecified asthma, uncomplicated (4) Bilateral arm weakness Status: Acute (5) Injury of cervical spine Status: Acute Qualifiers: Encounter type: subsequent encounter Qualified Codes: S14.109D - Unspecified injury at unspecified level of cervical spinal cord, subsequent encounter (6) BPH (benign prostatic hyperplasia) Status: Chronic Qualifiers: Lower urinary tract symptom presence: symptoms absent Qualified Codes: N40.0 - Benign prostatic hyperplasia without lower urinary tract symptoms (7) Risk for falls Status: Acute (8) Bladder mass MAYRA TORREZ DO Nov 18, 2018 11:01
--- NOTE | 2018-11-18 11:47 | Occupational Ther Daily Note ---
OT Current Status-Daily Note Subjective Pt sitting in chair, agrees to treatment, didn't sleep well last night. Pt reports 4/10 neck pain. Mental Status/Objective Therapy Code Descriptions/Definitions Functional [place] Measure: 0=Not Assessed/NA 4=Minimal Assistance 1=Total Assistance 5=Supervision or Setup 2=Maximal Assistance 6=Modified [place] 3=Moderate Assistance 7=Complete [place] ADL-Treatment Pt declined bathing or changing clothes, but requests to use restroom. Sit to stand with minimal assistance. Gait to restroom with FWW. Transfer to toilet with CGA. Pt able to pull shorts down on left, requires assist for right side. Pt sit to stand with minimal assistance. Able to partially pull shorts up on left, but requires assist on right. Return to chair with FWW. Pt states he would like to practice getting in and out of bed. Transfer to EOB with CGA using FWW. Pt able to complete sit to supine with verbal cues for technique. When attempting supine to sit, pt able to bring LE to EOB, but unable to raise upper body, requires assist to complete. Discussed possible solutions for home and educated on modifications. Pt states understanding of education. Pt performed gait to therapy gym with FWW. Bilateral UE P/AAROM to increase strength and ROM for functional tasks. Pt fatigues quickly and requires rest breaks between exercises. Pt has no report of pain with movement. Pt completed resistance peg activity with bilateral hand to encourage reaching and fine motor coordination/manipulation skills. Pt able to place pegs into pegboard with increased time and effort. Pt has mild difficulty with activity, but does not require any assistance. Pt returned to room, sitting in chair with needs met after session. Therapy Code Descriptions/Definitions Functional [place] Measure: 0=Not Assessed/NA 4=Minimal Assistance 1=Total Assistance 5=Supervision or Setup 2=Maximal Assistance 6=Modified [place] 3=Moderate Assistance 7=Complete [place] Therapy Quality Codes: 6 Independent with activity with or without an assistive device 5 Patient requires set up or clean up by helper. Patient completes activity by themselves 4 Supervision or touching assist (CGA). [place] provide cues , steadying assist 3 The helper provides less than half the effort to complete the activity 2 The helper provides more than half the effort to complete the activity 1 Dependent. The helper does all the effort to complete an activity 7 Patient refused to complete or attempt activity 9 The patient did not perform the activity before the current illness or injury 88 Not attempted due to Medical conditions or safety concerns OT Short Term Goals Short Term Goals Time Frame: Nov 16, 2018 Eating(FIM): 3 (mt) Grooming(FIM): 3 (met) Upper Body Dressing(FIM): 3 Lower Body Dressing(FIM): 3 Toilet/Commode Transfer(FIM): 4 (CGA) Additional Short Term Goals: 1-Demonstrate ADL Tasks, 2-Verbalize Understanding, 3-ImproveStrength/Mann 1=Demonstrate adherence to instructed precautions during ADL tasks. 2=Patient will verbalize/demonstrate understanding of assistive devices/modifications for ADL. 3=Patient will improve strength/tolerance for activity to enable patient to perform ADL's. OT Mend Worker Goals Senior Care Goals Time Frame: Nov 30, 2018 Eating (FIM): 5 (met) Eating (QC): 5 Groomin (met) Oral Hygiene (QC): 5 Bathing(FIM): 5 Shower/Bathe Self (QC): 4 Upper Body Dressing(FIM): 5 Upper Body Dressing (QC): 5 Lower Body Dressing(FIM): 5 Lower Body Dressing (QC): 4 On/Off Footwear (QC): 5 (met) Toileting(FIM): 5 Toileting Hygiene (QC): 5 Toilet/Commode Transfer(FIM): 5 Toilet/Commode Transfer (QC): 5 Shower Transfer(FIM): 5 Additional Goals: 1-Demonstrate ADL Tasks, 2-Verbalize Understanding, 3- ImproveStrength/Mann 1=Demonstrate adherence to instructed precautions during ADL tasks. 2=Patient will verbalize/demonstrate understanding of assistive devices/modifications for ADL. 3=Patient will improve strength/tolerance for activity to enable patient to perform ADL's. OT Education/Plan Discharge Recommendations Plan/Recommendations: Continue POC Treatment Plan/Plan of Care Patient would benefit from OT for education, treatment and training to promote independence in ADL's, mobility, safety and/or upper extremity function for ADL's. Plan of Care: ADL Retraining, Functional Mobility, Group Exercise/Act as Ind, UE Funct Exercise/Act, UE Neuromus Re-Ed/Coord Treatment Duration: Nov 30, 2018 Frequency: At least 5 of 7 days/Wk (IRF) Estimated Hrs Per Day: 1.5 hours per day Agreement: Yes Rehab Potential: Fair Time/GCodes Start Time: 08:00 Stop Time: 09:30 Total Time Billed (hr/min): 90 Billed Treatment Time 1 visit, ADL(15minutes), FAx2(30minutes), EXx3(45minutes) RACHELLE SUAREZ OT Nov 18, 2018 11:47
--- NOTE | 2018-11-18 13:03 | Physical Therapy Daily Note ---
PT Daily Note-Current Subjective Pt sitting in recliner upon arrival. Pt agrees to PT. Pt asks to work on bed mobility. Pain Numeric Pain Scale: 4 Location Body Site: Neck Pain Description: Ache Mental Status Patient Orientation: Person, Place, Time, Situation Attachments: Other-See Comments (Cervical Collar) Transfers Therapy Code Descriptions/Definitions Functional [place] Measure: 0=Not Assessed/NA 4=Minimal Assistance 1=Total Assistance 5=Supervision or Setup 2=Maximal Assistance 6=Modified [place] 3=Moderate Assistance 7=Complete [place] Therapy Quality Codes: 6 Independent with activity with or without an assistive device 5 Patient requires set up or clean up by helper. Patient completes activity by themselves 4 Supervision or touching assist (CGA). [place] provide cues , steadying assi st 3 The helper provides less than half the effort to complete the activity 2 The helper provides more than half the effort to complete the activity 1 Dependent. The helper does all the effort to complete an activity 7 Patient refused to complete or attempt activity 9 The patient did not perform the activity before the current illness or injury 88 Not attempted due to Medical conditions or safety concerns Weight Bearing Weight Bearing/Tolerated Weight Bearing/Tolerated Gait Training Does the Patient Walk?: Yes Gait (FIM): 5 Distance (FIM): 3=150 ft Distance: 175' Walk 10 feet (QC): 5 Walk 50 ft with 2 Turns(QC): 5 Walk 150 ft (QC): 5 Gait Level of Assist: 5 Gait Persons Needed: 1 Gait Assistive Device: FWW DRY MIXER stays at close SBA for ambulation. Wheelchair Training Does the Pt Use a Wheelchair?: No Exercises Seated Therapy Exercises: Ankle pumps, Long arc quads, Hip flexion, Kicking activity Seated Reps: 20 NuStep Minutes: 15 NuStep Workload: 4 Treatments Pt transfers from recliner to standing and uses restroom. Pt then returns to EOB to practice bed mobility and transfers. After a couple of times, pt stands from EOB and needs to use restroom. Pt needs assistance with clean up of BM and doffing/donning new brief. After dressing, pt is able to ambulate in hallway and to Therapy Gym. Pt uses NuStep for 15m at WL 4 (LE only). Pt then ambul ates in hallway and returns to room to rest in recliner. Pt has all needs met, call light in hand. Assessment Current Status: Good Progress Pt is anxious which at times limits tx. PT Short Term Goals Short Term Goals Time Frame: Nov 16, 2018 Gait (FIM): 4 (met) Gait Distance Comment: 200' Gait Level of Assist: 4 Gait Assistive Device: FWW PT Skilled Nursing Goals Skilled Nursing Goals PT Nut Grinder Goals Time Frame: Nov 30, 2018 Transfers (B,C,W/C) (FIM): 5 Sit to Lying (QC): 6 Lying-Sitting on Side/Bed(QC): 6 Sit to Stand (QC): 4 Rollin Roll Left to Right (QC): 6 Chair/Miq-fg-Dbsrc Xfer(QC): 4 Car Transfer (QC): 4 Gait (FIM): 5 Distance: 300' Walk 10 feet (QC): 4 Walk 10ft-Uneven Surface(QC): 4 Walk 50ft with 2 Turns (QC): 4 Walk 150 ft (QC): 4 Gait Level of Assist: 5 Gait Assistive Device: FWW Stairs (FIM): 2 # of Steps: 4 1 Step (curb) (QC): 4 4 Steps (QC): 4 Stairs Level Of Assist: 5 PT Plan Problem List Problem List: Activity Tolerance, Functional Strength, Transfer Treatment/Plan Treatment Plan: Continue Plan of Care Treatment Plan: Bed Mobility, Education, Functional Activity Mann, Functional Strength, Group Therapy, Gait, Safety, Therapeutic Exercise, Transfers Treatment Duration: Nov 30, 2018 Frequency: At least 5 of 7 days/Wk (IRF) Estimated Hrs Per Day: 1.5 hours per day Patient and/or Family Agrees t: Yes Safety Risks/Education Patient Education: Gait Training, Transfer Techniques, Correct Positioning, Safety Issues Teaching Recipient: Patient Teaching Methods: Discussion Response to Teaching: Verbalize Understanding Time/GCodes Time In: 1030 Time Out: 1200 Total Billed Treatment Time: 90 Total Billed Treatment 1, FA x3 (45m), EX x2 (30m) & GT (15m) NADYA STRICKLAND DRY MIXER Nov 18, 2018 13:03
[2018-11-18 17:09] VITALS: BP 143/80
[2018-11-19] MEDS: HYDROcodone/APAP 5 MG/325 MG (LORTAB) TAB PO PRN ×3 (03:33→23:40)
[2018-11-19 05:16] VITALS: BP 134/71
[2018-11-19] MEDS: TRIM/SULFAMETH 160/800 (SEPTRA DS) TAB PO SCH ×2 (06:47→17:29)
[2018-11-19] MEDS: POLYETHYLENE GLYCOL 17 GM (MIRALAX) PACK PO SCH ×2 (09:00→21:18)
[2018-11-19] MEDS: FINASTERIDE (PROSCAR) 5 MG TAB PO SCH (10:07)
[2018-11-19] MEDS: SENNA W/DOCUSATE (SENOKOT S) TABLET PO SCH ×2 (10:07→21:18)
[2018-11-19] MEDS: TAMSULOSIN 0.4 MG (FLOMAX) CAP PO SCH ×2 (10:07→21:18)
--- NOTE | 2018-11-19 11:33 | Physical Therapy Daily Note ---
PT Daily Note-Current Subjective Pt agreeable to PT session, states he feels arm function is coming back a little at a time, feels he is progressing. Pain Numeric Pain Scale: 0-No Pain Appearance upon arrival, pt sitting up in chair awake and alert. At end of session, pt sitting up in chair with call light, phone and bedside table within reach Mental Status Patient Orientation: Person, Place, Time, Eyes Open, Situation Transfers Therapy Code Descriptions/Definitions Functional [place] Measure: 0=Not Assessed/NA 4=Minimal Assistance 1=Total Assistance 5=Supervision or Setup 2=Maximal Assistance 6=Modified [place] 3=Moderate Assistance 7=Complete [place] Therapy Quality Codes: 6 Independent with activity with or without an assistive device 5 Patient requires set up or clean up by helper. Patient completes activity by themselves 4 Supervision or touching assist (CGA). [place] provide cues , steadying assist 3 The helper provides less than half the effort to complete the activity 2 The helper provides more than half the effort to complete the activity 1 Dependent. The helper does all the effort to complete an activity 7 Patient refused to complete or attempt activity 9 The patient did not perform the activity before the current illness or injury 88 Not attempted due to Medical conditions or safety concerns Transfers (B, C, W/C) (FIM): 5 Sit to/from Stand: 5 Pt following skilled instruction for safety and hand placement Weight Bearing Weight Bearing/Tolerated Weight Bearing/Tolerated Gait Training Does the Patient Walk?: Yes Gait (FIM): 5 Distance (FIM): 3=150 ft Distance: 150 x2 Gait Level of Assist: 5 Gait Persons Needed: 1 Gait Assistive Device: FWW knees flexed, R foot drag at times, decreased step height, good step length Exercises NuStep Minutes: 12 NuStep Workload: 5 (seat 11, LE's only) Treatments transfers, safety, gait, balance, strength, activity tolerance, education, functional mobility Assessment Current Status: Good Progress PT Short Term Goals Short Term Goals Time Frame: Nov 16, 2018 Gait (FIM): 4 (met) Gait Distance Comment: 200' Gait Level of Assist: 4 Gait Assistive Device: FWW PT Safety Tech Goals Safety Tech Goals PT Safety Tech Goals Time Frame: Nov 30, 2018 Transfers (B,C,W/C) (FIM): 5 Sit to Lying (QC): 6 Lying-Sitting on Side/Bed(QC): 6 Sit to Stand (QC): 4 Rollin Roll Left to Right (QC): 6 Chair/Kly-wf-Ujltu Xfer(QC): 4 Car Transfer (QC): 4 Gait (FIM): 5 Distance: 300' Walk 10 feet (QC): 4 Walk 10ft-Uneven Surface(QC): 4 Walk 50ft with 2 Turns (QC): 4 Walk 150 ft (QC): 4 Gait Level of Assist: 5 Gait Assistive Device: FWW Stairs (FIM): 2 # of Steps: 4 1 Step (curb) (QC): 4 4 Steps (QC): 4 Stairs Level Of Assist: 5 PT Plan Treatment/Plan Treatment Plan: Continue Plan of Care Treatment Plan: Bed Mobility, Education, Functional Activity Mann, Functional Strength, Group Therapy, Gait, Safety, Therapeutic Exercise, Transfers Treatment Duration: Nov 30, 2018 Frequency: At least 5 of 7 days/Wk (IRF) Estimated Hrs Per Day: 1.5 hours per day Patient and/or Family Agrees t: Yes Safety Risks/Education Patient Education: Gait Training, Transfer Techniques, Safety Issues Teaching Recipient: Patient Teaching Methods: Demonstration, Discussion Response to Teaching: Verbalize Understanding, Return Demonstration Time/GCodes Time In: 735 Time Out: 800 Total Billed Treatment Time: 25 Total Billed Treatment 1 visit, GT x1 unit, EX x1 unit FRANCISCO GILLIS PTA Nov 19, 2018 11:33
--- NOTE | 2018-11-19 11:53 | PM&R Progress Note ---
Subjective HPI/CC On Admission Date Seen by Provider: Nov 19, 2018 Time Seen by Provider: 11:30 Chief complaint: Cervical spine stenosis status post predictable injury with upper extremity weakness History of present illness: This is an 78-year-old white male of Dr. Velarde in [facility] who is known to me from cervical spine surgery by Dr. Starr on 11/02/2018 at [facility] who is had a long wait for insurance approval from [facility] to be admitted to inpatient rehab due to severe cervical spine muscle weakness of the arms and legs. He had such severe stenosis that he has residual neurologic deficit to the upper extremities more than lower extremities. His bowels or not moving well but they did about 4 days ago he has not had any lung problems or prostate problems during his hospital course and [place] at [facility]. He thinks that he gets too drowsy with taking 2 of the hydrocodone pain pills in addition for the muscle relaxant so will decrease the dose on both but keep him comfortable nonetheless. His prior level of functioning was independent without the use of assistive devices and he will return home with his and supportive family. Subjective/Events-last exam Patient getting better every day Thrilled with his results Incision is being monitored and maintained on Bactrim twice daily now Bowels are moving Taking senna only twice daily Able to do more and more every day Conferred with RN Checked meds and labs Reviewed therapy notes Review of Systems General: Fatigue Neurological: Weakness, Numbness, Incoordination Objective Exam Vital Signs Vital Signs Date Time Temp Pulse Resp B/P (MAP) Pulse Ox O2 Delivery O2 Flow Rate FiO2 11/19/18 09:00 Room Air 11/19/18 05:16 36.1 84 16 134/71 (92) 94 Capillary Refill : Less Than 3 Seconds General Appearance: No Apparent Distress, WD/WN, Chronically ill, Thin HEENT: PERRL/EOMI, Normal ENT Inspection, Pharynx Normal, Moist Mucous Membranes Neck: Full Range of Motion, Normal Inspection, Non Tender, Supple Respiratory: Chest Non Tender, Lungs Clear, Normal Breath Sounds, No Accessory Muscle Use, No Respiratory Distress Cardiovascular: Regular Rate, Rhythm, No Edema, No Gallop, No JVD, No Murmur Gastrointestinal: No Organomegaly, No Pulsatile Mass, Non Tender, Soft, Abnormal Bowel Sounds, Distended Back: Normal Inspection, No CVA Tenderness, No Vertebral Tenderness Extremity: Normal Capillary Refill, Normal Inspection, Normal Range of Motion, Non Tender, No Calf Tenderness, No Pedal Edema Neurologic/Psychiatric: Alert, Oriented x3, Normal 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 FIM Transfers Therapy Code Descriptions/Definitions Functional [place] Measure: 0=Not Assessed/NA 4=Minimal Assistance 1=Total Assistance 5=Supervision or Setup 2=Maximal Assistance 6=Modified [place] 3=Moderate Assistance 7=Complete [place] Therapy Quality Codes: 6 Independent with activity with or without an assistive device 5 Patient requires set up or clean up by helper. Patient completes activity by themselves 4 Supervision or touching assist (CGA). [place] provide cues , steadying assist 3 The helper provides less than half the effort to complete the activity 2 The helper provides more than half the effort to complete the activity 1 Dependent. The helper does all the effort to complete an activity 7 Patient refused to complete or attempt activity 9 The patient did not perform the activity before the current illness or injury 88 Not attempted due to Medical conditions or safety concerns Transfers (B, C, W/C) (FIM): 5 Scootin Rollin Roll Left to Right (QC): 4 Supine to/from Sit: 4 Sit to/from Stand: 5 Sit to Lying (QC): 4 Sit to Stand (QC): 4 Chair/Jnd-mm-Efydh Xfer(QC): 4 Bed to/from Chair: 4 Car Transfer (QC): 4 Gait Training Does the Patient Walk?: Yes Gait (FIM): 5 Distance (FIM): 3=150 ft Distance: 150 x2 Walk 10 feet (QC): 5 Walk 50 ft with 2 Turns(QC): 5 Walk 150 ft (QC): 5 Walking 10ft/uneven surface-QC: 4 Gait Level of Assist: 5 Gait Persons Needed: 1 Gait Assistive Device: FWW Wheelchair Training Does the Pt Use a Wheelchair?: No Stair Training Stairs (FIM): 1 #of Steps: 1 1 Step (curb) (QC): 3 Level of Assist: 4 Mental Status/Objective Comprehension: 7 Expression: 7 Social Interaction: 7 Problem Solvin Memory: 7 ADL-Treatment Feedin (setup) Eating (QC): 4 (cues and s/u) Groomin (Pt able to complete face hygiene (just reaching from mouth to eyes) with s/u due to decreased coordination and inability to open packaging. ) Oral Hygiene (QC): 4 Bathin Bathing Location: L Upper Leg, R Upper Leg, L Lower Leg (including foot), R Lower Leg (including foot), Chest, Abdomen, Perineal Area Shower/Bathe Self (QC): 3 Upper Extremity Dressin Upper Body Dressing (QC): 3 Lower Extremity Dressin Lower Body Dressing (QC): 3 On/Off Footwear (QC): 4 (cues during task) Toiletin Toileting Hygiene (QC): 3 Toilet/Commode Transfer: 4 (CGA) Toilet Transfer (QC): 4 (CGA) Shower: 4 Assessment/Plan Assessment and Plan Assess & Plan/Chief Complaint Assessment: Cervical spine injury Extremity weakness Constipation resolved but maintained on meds Asthma BPH Bladder mass Plan: Monitor lungs BM regimen to be maintained on regular scheduled basis Urology consultation is appreciated and christina since the cysto dx bladder tumor Feeding self now and doing better Monitor for falls (1) Cervical spinal stenosis Status: Acute (2) Constipation Status: Acute Qualifiers: Constipation type: slow transit constipation Qualified Codes: K59.01 - Slow transit constipation (3) Asthma Status: Chronic Qualifiers: Asthma severity: moderate Asthma persistence: unspecified Asthma complication type: unspecified Qualified Codes: J45.909 - Unspecified asthma, uncomplicated (4) Bilateral arm weakness Status: Acute (5) Injury of cervical spine Status: Acute Qualifiers: Encounter type: subsequent encounter Qualified Codes: S14.109D - Unspecified injury at unspecified level of cervical spinal cord, subsequent e ncounter (6) BPH (benign prostatic hyperplasia) Status: Chronic Qualifiers: Lower urinary tract symptom presence: symptoms absent Qualified Codes: N40.0 - Benign prostatic hyperplasia without lower urinary tract symptoms (7) Risk for falls Status: Acute (8) Bladder mass MAYRA TORREZ DO Nov 19, 2018 11:53
[2018-11-19] MEDS: RT-ADVAIR HFA 115/21 MCG PER PUFF IH SCH ×2 (15:19→20:00)
[2018-11-19 18:00] VITALS: BP 136/77
[2018-11-19] MEDS: MELATONIN 3 MG TABLET PO PRN (23:40)
[2018-11-20 05:49] VITALS: BP 130/73
[2018-11-20] MEDS: TRIM/SULFAMETH 160/800 (SEPTRA DS) TAB PO SCH ×2 (06:01→16:49)
[2018-11-20] MEDS: TAMSULOSIN 0.4 MG (FLOMAX) CAP PO SCH ×2 (08:32→21:00)
[2018-11-20] MEDS: FINASTERIDE (PROSCAR) 5 MG TAB PO SCH (08:32)
[2018-11-20] MEDS: SENNA W/DOCUSATE (SENOKOT S) TABLET PO SCH ×2 (08:34→21:00)
[2018-11-20] MEDS: POLYETHYLENE GLYCOL 17 GM (MIRALAX) PACK PO SCH ×2 (09:00→21:00)
[2018-11-20] MEDS: RT-ADVAIR HFA 115/21 MCG PER PUFF IH SCH ×2 (09:08→19:30)
--- NOTE | 2018-11-20 09:47 | PM&R Progress Note ---
Subjective HPI/CC On Admission Date Seen by Provider: Nov 20, 2018 Time Seen by Provider: 09:00 Chief complaint: Cervical spine stenosis status post predictable injury with upper extremity weakness History of present illness: This is an 78-year-old white male of Dr. Velarde in [facility] who is known to me from cervical spine surgery by Dr. Starr on 11/02/2018 at [facility] who is had a long wait for insurance approval from [facility] to be admitted to inpatient rehab due to severe cervical spine muscle weakness of the arms and legs. He had such severe stenosis that he has residual neurologic deficit to the upper extremities more than lower extremities. His bowels or not moving well but they did about 4 days ago he has not had any lung problems or prostate problems during his hospital course and [place] at [facility] In the [facility]. He thinks that he gets too drowsy with taking 2 of the hydrocodone pain pills in addition for the muscle relaxant so will decrease the dose on both but keep him comfortable nonetheless. His prior level of functioning was independent without the use of assistive devices and he will return home with his and supportive family. Subjective/Events-last exam Patient getting better every day Thrilled with his results more each day as his family is Incision is being monitored and maintained on Bactrim twice daily now Bowels are moving Taking senna only twice daily Able to do more and more every day UOP good each urination episode Conferred with RN Checked meds and labs Reviewed therapy notes Review of Systems General: Fatigue Neurological: Weakness, Numbness, Incoordination Objective Exam Vital Signs Vital Signs Date Time Temp Pulse Resp B/P (MAP) Pulse Ox O2 Delivery O2 Flow Rate FiO2 11/20/18 09:08 93 Room Air 11/20/18 05:49 36.2 79 16 130/73 (92) Capillary Refill : Less Than 3 Seconds General Appearance: No Apparent Distress, WD/WN, Chronically ill, Thin HEENT: PERRL/EOMI, Normal ENT Inspection, Pharynx Normal, Moist Mucous Membranes Neck: Full Range of Motion, Normal Inspection, Non Tender, Supple Respiratory: Chest Non Tender, Lungs Clear, Normal Breath Sounds, No Accessory Muscle Use, No Respiratory Distress Cardiovascular: Regular Rate, Rhythm, No Edema, No Gallop, No JVD, No Murmur Gastrointestinal: No Organomegaly, No Pulsatile Mass, Non Tender, Soft, Abnormal Bowel Sounds, Distended Back: Normal Inspection, No CVA Tenderness, No Vertebral Tenderness Extremity: Normal Capillary Refill, Normal Inspection, Normal Range of Motion, Non Tender, No Calf Tenderness, No Pedal Edema Neurologic/Psychiatric: Alert, Oriented x3, Normal Mood/Affect, pvc monitor II-XII Norm as Tested, Motor Weakness (upper extremities 2/5 bilateral, legs 4/5) Skin: Normal Color, Warm/Dry Lymphatic: No Adenopathy Results/Procedures Lab Patient resulted labs reviewed. FIM Transfers Therapy Code Descriptions/Definitions Functional [place] Measure: 0=Not Assessed/NA 4=Minimal Assistance 1=Total Assistance 5=Supervision or Setup 2=Maximal Assistance 6=Modified [place] 3=Moderate Assistance 7=Complete [place] Therapy Quality Codes: 6 Independent with activity with or without an assistive device 5 Patient requires set up or clean up by helper. Patient completes activity by themselves 4 Supervision or touching assist (CGA). [place] provide cues , steadying assi st 3 The helper provides less than half the effort to complete the activity 2 The helper provides more than half the effort to complete the activity 1 Dependent. The helper does all the effort to complete an activity 7 Patient refused to complete or attempt activity 9 The patient did not perform the activity before the current illness or injury 88 Not attempted due to Medical conditions or safety concerns Transfers (B, C, W/C) (FIM): 5 Scootin Rollin Roll Left to Right (QC): 4 Supine to/from Sit: 4 Sit to/from Stand: 5 Sit to Lying (QC): 4 Sit to Stand (QC): 4 Chair/Cep-ld-Bhvtw Xfer(QC): 4 Bed to/from Chair: 4 Car Transfer (QC): 4 Gait Training Does the Patient Walk?: Yes Gait (FIM): 5 Distance (FIM): 3=150 ft Distance: 150 x2 Walk 10 feet (QC): 5 Walk 50 ft with 2 Turns(QC): 5 Walk 150 ft (QC): 5 Walking 10ft/uneven surface-QC: 4 Gait Level of Assist: 5 Gait Persons Needed: 1 Gait Assistive Device: FWW Wheelchair Training Does the Pt Use a Wheelchair?: No Stair Training Stairs (FIM): 1 #of Steps: 1 1 Step (curb) (QC): 3 Level of Assist: 4 Mental Status/Objective Comprehension: 7 Expression: 7 Social Interaction: 7 Problem Solvin Memory: 7 ADL-Treatment Feedin (setup) Eating (QC): 4 (cues and s/u) Groomin (Pt able to complete face hygiene (just reaching from mouth to eyes) with s/u due to decreased coordination and inability to open packaging. ) Oral Hygiene (QC): 4 Bathin Bathing Location: L Upper Leg, R Upper Leg, L Lower Leg (including foot), R Lower Leg (including foot), Chest, Abdomen, Perineal Area Shower/Bathe Self (QC): 3 Upper Extremity Dressin Upper Body Dressing (QC): 3 Lower Extremity Dressin Lower Body Dressing (QC): 3 On/Off Footwear (QC): 4 (cues during task) Toiletin Toileting Hygiene (QC): 3 Toilet/Commode Transfer: 4 (CGA) Toilet Transfer (QC): 4 (CGA) Shower: 4 Assessment/Plan Assessment and Plan Assess & Plan/Chief Complaint Assessment: Cervical spine injury Extremity weakness Constipation resolved but maintained on meds Asthma BPH Bladder mass Plan: Monitor lungs BM regimen to be maintained on regular scheduled basis Urology consultation is appreciated and christina since the cysto dx bladder tumor Feeding self now and doing better Monitor for falls (1) Cervical spinal stenosis Status: Acute (2) Constipation Status: Acute Qualifiers: Constipation type: slow transit constipation Qualified Codes: K59.01 - Slow transit constipation (3) Asthma Status: Chronic Qualifiers: Asthma severity: moderate Asthma persistence: unspecified Asthma complication type: unspecified Qualified Codes: J45.909 - Unspecified asthma, uncomplicated (4) Bilateral arm weakness Status: Acute (5) Injury of cervical spine Status: Acute Qualifiers: Encounter type: subsequent encounter Qualified Codes: S14.109D - Unspecified injury at unspecified level of cervical spinal cord, subsequent encounter (6) BPH (benign prostatic hyperplasia) Status: Chronic Qualifiers: Lower urinary tract symptom presence: symptoms absent Qualified Codes: N40.0 - Benign prostatic hyperplasia without lower urinary tract symptoms (7) Risk for falls Status: Acute (8) Bladder mass MAYRA TORREZ DO Nov 20, 2018 09:47
[2018-11-20 17:26] VITALS: BP 142/58
[2018-11-21] MEDS: HYDROcodone/APAP 5 MG/325 MG (LORTAB) TAB PO PRN ×3 (01:05→20:06)
[2018-11-21 04:58] LABS: BASOPHILS % (AUTO) 1 % (0-10); EOSINOPHILS # (AUTO) 0.2 10^3/uL (0.0-0.3); EOSINOPHILS % (AUTO) 3 % (0-10); HEMATOCRIT 38 % (40-54); HEMOGLOBIN 12.5 G/DL (13.3-17.7); LYMPHOCYTES % (AUTO) 31 % (12-44); MEAN CORPUSCULAR HEMOGLOBIN 31 PG (25-34); MEAN CORPUSCULAR HGB CONC 33 G/DL (32-36); MEAN CORPUSCULAR VOLUME 96 FL (80-99); MEAN PLATELET VOLUME 9.5 FL (7.4-10.4); MONOCYTES # (AUTO) 0.6 X 10^3 (0.0-1.0); MONOCYTES % (AUTO) 9 % (0-12); NEUTROPHILS # (AUTO) 3.7 X 10^3 (1.8-7.8); NEUTROPHILS % (AUTO) 57 % (42-75); PLATELET COUNT 293 10^3/uL (130-400); RED CELL DISTRIBUTION WIDTH 12.3 % (10.0-14.5); WHITE BLOOD COUNT 6.5 10^3/uL (4.3-11.0)
[2018-11-21 05:02] VITALS: BP 119/71
[2018-11-21 05:22] LABS: ALANINE AMINOTRANSFERASE 30 U/L (0-55); ALBUMIN 3.6 GM/DL (3.2-4.5); ALKALINE PHOSPHATASE 81 U/L (40-136); BILIRUBIN,TOTAL 0.2 MG/DL (0.1-1.0); BUN/CREATININE RATIO 16; CALCIUM 8.9 MG/DL (8.5-10.1); CARBON DIOXIDE 22 MMOL/L (21-32); CHLORIDE 106 MMOL/L (98-107); CREATININE SERUM 1.06 MG/DL (0.60-1.30); GFR ESTIMATED > 60; GLUCOSE 116 MG/DL (70-105); POTASSIUM 4.4 MMOL/L (3.6-5.0); SODIUM 138 MMOL/L (135-145); TOTAL PROTEIN 6.5 GM/DL (6.4-8.2)
[2018-11-21] MEDS: TRIM/SULFAMETH 160/800 (SEPTRA DS) TAB PO SCH ×2 (05:40→17:48)
[2018-11-21] MEDS: RT-ADVAIR HFA 115/21 MCG PER PUFF IH SCH ×2 (07:11→20:29)
[2018-11-21] MEDS: TAMSULOSIN 0.4 MG (FLOMAX) CAP PO SCH ×2 (08:49→20:06)
[2018-11-21] MEDS: SENNA W/DOCUSATE (SENOKOT S) TABLET PO SCH ×3 (08:49→20:08)
[2018-11-21] MEDS: FINASTERIDE (PROSCAR) 5 MG TAB PO SCH (08:49)
--- NOTE | 2018-11-21 09:02 | PM&R Progress Note ---
Subjective HPI/CC On Admission Date Seen by Provider: Nov 21, 2018 Time Seen by Provider: 08:30 Chief complaint: Cervical spine stenosis status post predictable injury with upper extremity weakness History of present illness: This is an 78-year-old white male of Dr. Velarde in [facility] who is known to me from cervical spine surgery by Dr. Starr on 11/02/2018 at [facility] who is had a long wait for insurance approval from [facility] to be admitted to inpatient rehab due to severe cervical spine muscle weakness of the arms and legs. He had such severe stenosis that he has residual neurologic deficit to the upper extremities more than lower extremities. His bowels or not moving well but they did about 4 days ago he has not had any lung problems or prostate problems during his hospital course and [place] at [facility]. He thinks that he gets too drowsy with taking 2 of the hydrocodone pain pills in addition for the muscle relaxant so will decrease the dose on both but keep him comfortable nonetheless. His prior level of functioning was independent without the use of assistive devices and he will return home with his and supportive family. Subjective/Events-last exam Patient getting better every day Thrilled with his results more each day as his family is Incision is being monitored and maintained on Bactrim twice daily now Bowels are moving Taking senna only twice daily Able to do more and more every day Labs reviewed all normal Conferred with RN Checked meds and labs Reviewed therapy notes Review of Systems Neurological: Weakness, Numbness, Incoordination Objective Exam Vital Signs Vital Signs Date Time Temp Pulse Resp B/P (MAP) Pulse Ox O2 Delivery O2 Flow Rate FiO2 11/21/18 07:13 93 Room Air 11/21/18 05:02 36.5 89 16 119/71 (87) Capillary Refill : Less Than 3 Seconds General Appearance: No Apparent Distress, WD/WN, Chronically ill, Thin HEENT: PERRL/EOMI, Normal ENT Inspection, Pharynx Normal, Moist Mucous Membr anes Neck: Full Range of Motion, Normal Inspection, Non Tender, Supple Respiratory: Chest Non Tender, Lungs Clear, Normal Breath Sounds, No Accessory Muscle Use, No Respiratory Distress Cardiovascular: Regular Rate, Rhythm, No Edema, No Gallop, No JVD, No Murmur Gastrointestinal: No Organomegaly, No Pulsatile Mass, Non Tender, Soft, Abnormal Bowel Sounds, Distended Back: Normal Inspection, No CVA Tenderness, No Vertebral Tenderness Extremity: Normal Capillary Refill, Normal Inspection, Normal Range of Motion, Non Tender, No Calf Tenderness, No Pedal Edema Neurologic/Psychiatric: Alert, Oriented x3, Normal Mood/Affect, 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 FIM Transfers Therapy Code Descriptions/Definitions Functional [place] Measure: 0=Not Assessed/NA 4=Minimal Assistance 1=Total Assistance 5=Supervision or Setup 2=Maximal Assistance 6=Modified [place] 3=Moderate Assistance 7=Complete [place] Therapy Quality Codes: 6 Independent with activity with or without an assistive device 5 Patient requires set up or clean up by helper. Patient completes activity by themselves 4 Supervision or touching assist (CGA). [place] provide cues , steadying assist 3 The helper provides less than half the effort to complete the activity 2 The helper provides more than half the effort to complete the activity 1 Dependent. The helper does all the effort to complete an activity 7 Patient refused to complete or attempt activity 9 The patient did not perform the activity before the current illness or injury 88 Not attempted due to Medical conditions or safety concerns Transfers (B, C, W/C) (FIM): 5 Scootin Rollin Roll Left to Right (QC): 4 Supine to/from Sit: 4 Sit to/from Stand: 5 Sit to Lying (QC): 4 Sit to Stand (QC): 4 Chair/Pph-wd-[place] Xfer(QC): 4 Bed to/from Chair: 4 Car Transfer (QC): 4 Gait Training Does the Patient Walk?: Yes Gait (FIM): 5 Distance (FIM): 3=150 ft Distance: 150 x2 Walk 10 feet (QC): 5 Walk 50 ft with 2 Turns(QC): 5 Walk 150 ft (QC): 5 Walking 10ft/uneven surface-QC: 4 Gait Level of Assist: 5 Gait Persons Needed: 1 Gait Assistive Device: FWW Wheelchair Training Does the Pt Use a Wheelchair?: No Stair Training Stairs (FIM): 1 #of Steps: 1 1 Step (curb) (QC): 3 Level of Assist: 4 Mental Status/Objective Comprehension: 7 Expression: 7 Social Interaction: 7 Problem Solvin Memory: 7 ADL-Treatment Feedin (setup) Eating (QC): 4 (cues and s/u) Groomin (Pt able to complete face hygiene (just reaching from mouth to eyes) with s/u due to decreased coordination and inability to open packaging. ) Oral Hygiene (QC): 4 Bathin Bathing Location: L Upper Leg, R Upper Leg, L Lower Leg (including foot), R Lower Leg (including foot), Chest, Abdomen, Perineal Area Shower/Bathe Self (QC): 3 Upper Extremity Dressin Upper Body Dressing (QC): 3 Lower Extremity Dressin Lower Body Dressing (QC): 3 On/Off Footwear (QC): 4 (cues during task) Toiletin Toileting Hygiene (QC): 3 Toilet/Commode Transfer: 4 (CGA) Toilet Transfer (QC): 4 (CGA) Shower: 4 Assessment/Plan Assessment and Plan Assess & Plan/Chief Complaint Assessment: Cervical spine injury Extremity weakness Constipation resolved but maintained on meds Asthma BPH Bladder mass Plan: Monitor lungs BM regimen to be maintained on regular scheduled basis Urology consultation is appreciated and christina since the cysto dx bladder tumor Feeding self now and doing better Monitor for falls Discharge plan for Wednesday (1) Cervical spinal stenosis Status: Acute (2) Constipation Status: Acute Qualifiers: Constipation type: slow transit constipation Qualified Codes: K59.01 - Sl ow transit constipation (3) Asthma Status: Chronic Qualifiers: Asthma severity: moderate Asthma persistence: unspecified Asthma complication type: unspecified Qualified Codes: J45.909 - Unspecified asthma, uncomplicated (4) Bilateral arm weakness Status: Acute (5) Injury of cervical spine Status: Acute Qualifiers: Encounter type: subsequent encounter Qualified Codes: S14.109D - Unspecified injury at unspecified level of cervical spinal cord, subsequent en counter (6) BPH (benign prostatic hyperplasia) Status: Chronic Qualifiers: Lower urinary tract symptom presence: symptoms absent Qualified Codes: N40.0 - Benign prostatic hyperplasia without lower urinary tract symptoms (7) Risk for falls Status: Acute (8) Bladder mass MAYRA TORREZ DO Nov 21, 2018 09:02
[2018-11-21] MEDS: POLYETHYLENE GLYCOL 17 GM (MIRALAX) PACK PO SCH ×2 (09:03→20:08)
--- NOTE | 2018-11-21 09:28 | Progress Note - Urology ---
Progress Note-Urology Progress Notes/Assess & Plan Progress/Assessment & Plan DISCUSSED PLAN WITH PATIENT AND FAMILY, SEE HIM IN OFFICE TUESDAY 12/05 AND PLAN TURBT WEDNESDAY 12/06 Final Diagnosis BLADDER TUMOR, BPH, OAB REHANA CASON MD Nov 21, 2018 09:28
--- NOTE | 2018-11-21 10:28 | Physical Therapy Daily Note ---
PT Daily Note-Current Subjective Patient in recliner pre tx, agrees to PT, has no complaints of pain. Appearance Patient in recliner post tx with nurse call, phone, tray, family in the room. Mental Status Patient Orientation: Normal For Age cervical collar Transfers Therapy Code Descriptions/Definitions Functional [place] Measure: 0=Not Assessed/NA 4=Minimal Assistance 1=Total Assistance 5=Supervision or Setup 2=Maximal Assistance 6=Modified [place] 3=Moderate Assistance 7=Complete [place] Therapy Quality Codes: 6 Independent with activity with or without an assistive device 5 Patient requires set up or clean up by helper. Patient completes activity by themselves 4 Supervision or touching assist (CGA). [place] provide cues , steadying assist 3 The helper provides less than half the effort to complete the activity 2 The helper provides more than half the effort to complete the activity 1 Dependent. The helper does all the effort to complete an activity 7 Patient refused to complete or attempt activity 9 The patient did not perform the activity before the current illness or injury 88 Not attempted due to Medical conditions or safety concerns Transfers (B, C, W/C) (FIM): 4 Scootin Rollin Roll Left to Right (QC): 6 Supine to/from Sit: 4 Sit to/from Stand: 4 Sit to Lying (QC): 3 Sit to Stand (QC): 3 Chair/Ufp-wl-Grwkk Xfer(QC): 4 Bed to/from Chair: 4 Patient performs supine <-> sit min assist, sit to stand min assist from lower surfaces, transfers SBA. Patient practiced bed mobility and supine to sit, log roll. Weight Bearing Weight Bearing/Tolerated Weight Bearing/Tolerated Gait Training Gait (FIM): 4 Distance: 200'x2 Gait Level of Assist: 4 Gait Persons Needed: 1 Gait Assistive Device: FWW CGA, some unsteadiness but improved, better step placement Stair Training Stair Training: Handrails/: 2 handrails Stairs (FIM): 2 #of Steps: 4 1 Step (curb) (QC): 3 4 Steps (QC): 3 Stairs: Pattern: Step to Level of Assist: 3 min assist, cues for foot placement Exercises LAQ alternating with 2# ankle weights for 5 min, sit to stand 3 sets of 10 NuStep Minutes: 15 NuStep Workload: 5 Treatments bed mobility and transfers, ambulation, LE exercise, stair training Assessment Current Status: Fair Progress improving general mobility and LE strength PT Short Term Goals Short Term Goals Time Frame: Nov 16, 2018 Gait (FIM): 4 (met) Gait Distance Comment: 200' Gait Level of Assist: 4 Gait Assistive Device: FWW PT Senior Health Educator Goals Senior Health Educator Goals PT Jail Goals Time Frame: Nov 30, 2018 Transfers (B,C,W/C) (FIM): 5 Sit to Lying (QC): 6 Lying-Sitting on Side/Bed(QC): 6 Sit to Stand (QC): 4 Rollin Roll Left to Right (QC): 6 Chair/Kjs-bm-Vuwfv Xfer(QC): 4 Car Transfer (QC): 4 Gait (FIM): 5 Distance: 300' Walk 10 feet (QC): 4 Walk 10ft-Uneven Surface(QC): 4 Walk 50ft with 2 Turns (QC): 4 Walk 150 ft (QC): 4 Gait Level of Assist: 5 Gait Assistive Device: FWW Stairs (FIM): 2 # of Steps: 4 1 Step (curb) (QC): 4 4 Steps (QC): 4 Stairs Level Of Assist: 5 PT Plan Problem List Problem List: Activity Tolerance, Functional Strength, Safety, Balance, Gait, Transfer, Bed Mobility Treatment/Plan Treatment Plan: Continue Plan of Care Treatment Plan: Bed Mobility, Education, Functional Activity Mann, Functional Strength, Group Therapy, Gait, Safety, Therapeutic Exercise, Transfers Treatment Duration: Nov 30, 2018 Frequency: At least 5 of 7 days/Wk (IRF) Estimated Hrs Per Day: 1.5 hours per day Patient and/or Family Agrees t: Yes Safety Risks/Education Patient Education: Gait Training, Transfer Techniques, Steps, Correct Positioning, Safety Issues Teaching Recipient: Patient Teaching Methods: Demonstration, Discussion Response to Teaching: Reinforcement Needed Time/GCodes Time In: 0930 Time Out: 1030 Total Billed Treatment 1 visit GT 20' FA 10' EX 30' OSORIO LOCKHART PT Nov 21, 2018 10:28
--- NOTE | 2018-11-21 13:48 | NUR ---
Patient to discharge home this November 23. Patient has chosen to receive home health care services from [facility] in [place]; referral to be made. Patient states he has all equipment needed, e.g., walker and wheelchair; grab bars are to be installed in shower, this Wednesday. Patient has requested to have surgery with Dr. Payan, scheduled for December 05. RN notified. Will continue to follow for discharge planning.
--- NOTE | 2018-11-21 13:49 | Occupational Ther Daily Note ---
OT Current Status-Daily Note Subjective No pain reported. Appearance Pt. up in chair. Family in room for family training. Agrees to OT. Mental Status/Objective Patient Orientation: Person, Place, Time, Situation Therapy Code Descriptions/Definitions Functional [place] Measure: 0=Not Assessed/NA 4=Minimal Assistance 1=Total Assistance 5=Supervision or Setup 2=Maximal Assistance 6=Modified [place] 3=Moderate Assistance 7=Complete [place] ADL-Treatment Therapy Code Descriptions/Definitions Functional [place] Measure: 0=Not Assessed/NA 4=Minimal Assistance 1=Total Assistance 5=Supervision or Setup 2=Maximal Assistance 6=Modified [place] 3=Moderate Assistance 7=Complete [place] Therapy Quality Codes: 6 Independent with activity with or without an assistive device 5 Patient requires set up or clean up by helper. Patient completes activity by themselves 4 Supervision or touching assist (CGA). [place] provide cues , steadying assi st 3 The helper provides less than half the effort to complete the activity 2 The helper provides more than half the effort to complete the activity 1 Dependent. The helper does all the effort to complete an activity 7 Patient refused to complete or attempt activity 9 The patient did not perform the activity before the current illness or injury 88 Not attempted due to Medical conditions or safety concerns Transfers (B, C, W/C) (FIM): 4 (Supine-sit) Pt. and spouse state that spouse assisted pt. yesterday with shower. State that they did well, and pt. agrees to shower tomorrow. Spouse and daughter present for education. Pt. states that his main concerns are for OT to demonstrate to spouse how to perform UE PROM, and for bed mobility. OT demonstrated correct bed mobility techniques to pt. and spouse. Both verbalize that he will not have a bedrail, nor a bed where the head raises. OT demonstrates use of high back chair against back of bed as needed. Also demonstrated ability to get right foot into bed using gait belt for support around foot. Pt. able to complete sit-supine in this manner, but unable to transfer supine-sit. OT provided gentle assist for supine-sit, and educated spouse in correct method of assisting him. Both verbalize understanding. Completed gentle PROM to bilateral UE to shoulders in flexion and abduction. Also provided gentle stretch to pectoral muscles and facilitated scapular glide. Spouse demonstrated ability to do this and daughter took pictures of each position to look back on. All needs met with family for education in regards to continued stretch and UE mobility at home. Education OT Patient Education: Correct positioning, Exercise program, Home exercise program, Modified ADL techniques, Progress toward Goal/Update tx plan, Purpose of tx/functional activities, Reviewed precautions, Rehab process, Transfer techniques Teaching Recipient: Patient Teaching Methods: Demonstration, Discussion Response to Teaching: Verbalize Understanding, Return Demonstration OT Short Term Goals Short Term Goals Time Frame: Nov 16, 2018 Eating(FIM): 3 (mt) Grooming(FIM): 3 (met) Upper Body Dressing(FIM): 3 Lower Body Dressing(FIM): 3 Toilet/Commode Transfer(FIM): 4 (CGA) Additional Short Term Goals: 1-Demonstrate ADL Tasks, 2-Verbalize Understanding, 3-ImproveStrength/Mann 1=Demonstrate adherence to instructed precautions during ADL tasks. 2=Patient will verbalize/demonstrate understanding of assistive devices/modifications for ADL. 3=Patient will improve strength/tolerance for activity to enable patient to perform ADL's. OT Nursing Home Goals Nursing Home Goals Time Frame: Nov 30, 2018 Eating (FIM): 5 (met) Eating (QC): 5 Groomin (met) Oral Hygiene (QC): 5 Bathing(FIM): 5 Shower/Bathe Self (QC): 4 Upper Body Dressing(FIM): 5 Upper Body Dressing (QC): 5 Lower Body Dressing(FIM): 5 Lower Body Dressing (QC): 4 On/Off Footwear (QC): 5 (met) Toileting(FIM): 5 Toileting Hygiene (QC): 5 Toilet/Commode Transfer(FIM): 5 Toilet/Commode Transfer (QC): 5 Shower Transfer(FIM): 5 Additional Goals: 1-Demonstrate ADL Tasks, 2-Verbalize Understanding, 3- ImproveStrength/Mann 1=Demonstrate adherence to instructed precautions during ADL tasks. 2=Patient will verbalize/demonstrate understanding of assistive devices/modifications for ADL. 3=Patient will improve strength/tolerance for activity to enable patient to perform ADL's. OT Education/Plan Problem List/Assessment Assessment: Decreased Activ Tolerance, Decreased UE Strength, Impaired Bed Mobility, Impaired I ADL's, Impaired Self-Care Skills, Restricted Funct UE ROM Discharge Recommendations Plan/Recommendations: Continue POC Therapy Discharge Recommendati: Post Acute OT Treatment Plan/Plan of Care Treatment,Training & Education: Yes Patient would benefit from OT for education, treatment and training to promote independence in ADL's, mobility, safety and/or upper extremity function for ADL's. Plan of Care: ADL Retraining, Functional Mobility, Group Exercise/Act as Ind, UE Funct Exercise/Act, UE Neuromus Re-Ed/Coord Treatment Duration: Nov 30, 2018 Frequency: At least 5 of 7 days/Wk (IRF) Estimated Hrs Per Day: 1.5 hours per day Agreement: Yes Rehab Potential: Good Time/GCodes Start Time: 08:30 Stop Time: 09:30 Total Time Billed (hr/min): 60 Billed Treatment Time 1, FA x 30minutes, Ex x 30minutes NATALIE US OT Nov 21, 2018 13:49
--- NOTE | 2018-11-21 13:52 | Physical Therapy Daily Note ---
PT Daily Note-Current Subjective Agrees to PT. Reports "everyone says I am doing better!" Transfers Therapy Code Descriptions/Definitions Functional [place] Measure: 0=Not Assessed/NA 4=Minimal Assistance 1=Total Assistance 5=Supervision or Setup 2=Maximal Assistance 6=Modified [place] 3=Moderate Assistance 7=Complete [place] Therapy Quality Codes: 6 Independent with activity with or without an assistive device 5 Patient requires set up or clean up by helper. Patient completes activity by themselves 4 Supervision or touching assist (CGA). [place] provide cues , steadying assist 3 The helper provides less than half the effort to complete the activity 2 The helper provides more than half the effort to complete the activity 1 Dependent. The helper does all the effort to complete an activity 7 Patient refused to complete or attempt activity 9 The patient did not perform the activity before the current illness or injury 88 Not attempted due to Medical conditions or safety concerns Weight Bearing Weight Bearing/Tolerated Weight Bearing/Tolerated Treatments Sit to stand x all reps with SBA with intermittent cues for sequencing and safety with stand to sit. Pt able to correct with cues. Pt ambulated 200 ft x 5 reps with FWW with SBA without safety concern. Assessment Current Status: Good Progress Gait pattern much improved since last seen by this therapist. Transfers improved as well; requires intermittent cuing for safety with stand to sit. PT Short Term Goals Short Term Goals Time Frame: Nov 16, 2018 Gait (FIM): 4 (met) Gait Distance Comment: 200' Gait Level of Assist: 4 Gait Assistive Device: FWW PT Usp Goals Usp Goals PT Veneer Splicer Goals Time Frame: Nov 30, 2018 Transfers (B,C,W/C) (FIM): 5 Sit to Lying (QC): 6 Lying-Sitting on Side/Bed(QC): 6 Sit to Stand (QC): 4 Rollin Roll Left to Right (QC): 6 Chair/Ava-lq-Fnrmw Xfer(QC): 4 Car Transfer (QC): 4 Gait (FIM): 5 Distance: 300' Walk 10 feet (QC): 4 Walk 10ft-Uneven Surface(QC): 4 Walk 50ft with 2 Turns (QC): 4 Walk 150 ft (QC): 4 Gait Level of Assist: 5 Gait Assistive Device: FWW Stairs (FIM): 2 # of Steps: 4 1 Step (curb) (QC): 4 4 Steps (QC): 4 Stairs Level Of Assist: 5 PT Plan Problem List Problem List: Activity Tolerance, Functional Strength, Safety, Balance, Gait, Transfer Treatment/Plan Treatment Plan: Continue Plan of Care Treatment Plan: Bed Mobility, Education, Functional Activity Mann, Functional Strength, Group Therapy, Gait, Safety, Therapeutic Exercise, Transfers Treatment Duration: Nov 30, 2018 Frequency: At least 5 of 7 days/Wk (IRF) Estimated Hrs Per Day: 1.5 hours per day Patient and/or Family Agrees t: Yes Safety Risks/Education Patient Education: Transfer Techniques Teaching Recipient: Patient Teaching Methods: Demonstration, Discussion Response to Teaching: Return Demonstration Discharge Recommendations Therapy Discharge Recommendati: Post Acute PT Time/GCodes Time In: 1315 Time Out: 1345 Total Billed Treatment Time: 30 Total Billed Treatment visit GT 30 TIFFANIE VIERA PT Nov 21, 2018 13:52
--- NOTE | 2018-11-21 13:58 | Occupational Ther Daily Note ---
OT Current Status-Daily Note Subjective No pain reported. Mental Status/Objective Patient Orientation: Person, Place, Time, Situation Therapy Code Descriptions/Definitions Functional [place] Measure: 0=Not Assessed/NA 4=Minimal Assistance 1=Total Assistance 5=Supervision or Setup 2=Maximal Assistance 6=Modified [place] 3=Moderate Assistance 7=Complete [place] ADL-Treatment Therapy Code Descriptions/Definitions Functional [place] Measure: 0=Not Assessed/NA 4=Minimal Assistance 1=Total Assistance 5=Supervision or Setup 2=Maximal Assistance 6=Modified [place] 3=Moderate Assistance 7=Complete [place] Therapy Quality Codes: 6 Independent with activity with or without an assistive device 5 Patient requires set up or clean up by helper. Patient completes activity by themselves 4 Supervision or touching assist (CGA). [place] provide cues , steadying assist 3 The helper provides less than half the effort to complete the activity 2 The helper provides more than half the effort to complete the activity 1 Dependent. The helper does all the effort to complete an activity 7 Patient refused to complete or attempt activity 9 The patient did not perform the activity before the current illness or i njury 88 Not attempted due to Medical conditions or safety concerns Transfers (B, C, W/C) (FIM): 5 Pt. ambulated with SBA to therapy gym with walker. Completed balaji system overhead for increased overall PROM. OT placed elastic laces in shoes during this time as well. Pt. attempted to don these specific shoes, and due to swelling, pt. unable to get them on. Pt. and spouse educated on getting bigger laces if needed when swelling goes down, if shoes are still difficult for him to don. Pt. and OT ambulated back to room. All needs met. Education OT Patient Education: Correct positioning, Exercise program, Modified ADL techniques, Progress toward Goal/Update tx plan, Purpose of tx/functional activities, Reviewed precautions, Rehab process, Transfer techniques Teaching Recipient: Patient, Family Teaching Methods: Demonstration, Discussion Response to Teaching: Verbalize Understanding, Return Demonstration OT Short Term Goals Short Term Goals Time Frame: Nov 16, 2018 Eating(FIM): 3 (mt) Grooming(FIM): 3 (met) Upper Body Dressing(FIM): 3 Lower Body Dressing(FIM): 3 Toilet/Commode Transfer(FIM): 4 (CGA) Additional Short Term Goals: 1-Demonstrate ADL Tasks, 2-Verbalize Understanding, 3-ImproveStrength/Mann 1=Demonstrate adherence to instructed precautions during ADL tasks. 2=Patient will verbalize/demonstrate understanding of assistive devices /modifications for ADL. 3=Patient will improve strength/tolerance for activity to enable patient to perform ADL's. OT Retirement Goals Retirement Goals Time Frame: Nov 30, 2018 Eating (FIM): 5 (met) Eating (QC): 5 Groomin (met) Oral Hygiene (QC): 5 Bathing(FIM): 5 Shower/Bathe Self (QC): 4 Upper Body Dressing(FIM): 5 Upper Body Dressing (QC): 5 Lower Body Dressing(FIM): 5 Lower Body Dressing (QC): 4 On/Off Footwear (QC): 5 (met) Toileting(FIM): 5 Toileting Hygiene (QC): 5 Toilet/Commode Transfer(FIM): 5 Toilet/Commode Transfer (QC): 5 Shower Transfer(FIM): 5 Additional Goals: 1-Demonstrate ADL Tasks, 2-Verbalize Understanding, 3- ImproveStrength/Mann 1=Demonstrate adherence to instructed precautions during ADL tasks. 2=Patient will verbalize/demonstrate understanding of assistive devices/modifications for ADL. 3=Patient will improve strength/tolerance for activity to enable patient to perform ADL's. OT Education/Plan Problem List/Assessment Assessment: Decreased Activ Tolerance, Decreased UE Strength, Impaired I ADL's, Impaired Self-Care Skills, Restricted Funct UE ROM Discharge Recommendations Plan/Recommendations: Continue POC Therapy Discharge Recommendati: Post Acute OT Treatment Plan/Plan of Care Treatment,Training & Education: Yes Patient would benefit from OT for education, treatment and training to promote independence in ADL's, mobility, safety and/or upper extremity function for ADL's. Plan of Care: ADL Retraining, Functional Mobility, Group Exercise/Act as Ind, UE Funct Exercise/Act, UE Neuromus Re-Ed/Coord Treatment Duration: Nov 30, 2018 Frequency: At least 5 of 7 days/Wk (IRF) Estimated Hrs Per Day: 1.5 hours per day Agreement: Yes Rehab Potential: Good Time/GCodes Start Time: 11:00 Stop Time: 11:30 Total Time Billed (hr/min): 30 Billed Treatment Time 1, ADL x 15minutes, Ex x 15minutes NATALIE US OT Nov 21, 2018 13:58
[2018-11-21 17:45] VITALS: BP 110/71
--- NOTE | 2018-11-21 19:11 | NUR ---
bedside report received from TODD TAVARES, assume care of pt
--- NOTE | 2018-11-21 20:06 | NUR ---
c/o pain level 5/10 on numeric scale, lortab 5 1 tab po given, pt refused miralax & Senokot
--- NOTE | 2018-11-21 20:45 | NUR ---
rates pain level 2/10 on numeric scale
[2018-11-22] MEDS: BACLOFEN 10 MG (LIORESAL) TAB PO PRN ×2 (02:20→20:52)
--- NOTE | 2018-11-22 02:20 | NUR ---
pt requesting Lioresal 5mg & given
[2018-11-22 05:52] VITALS: BP 122/73
[2018-11-22] MEDS: TRIM/SULFAMETH 160/800 (SEPTRA DS) TAB PO SCH ×2 (06:56→16:27)
--- NOTE | 2018-11-22 07:19 | NUR ---
bedside report given to TODD TAVARES
[2018-11-22] MEDS: RT-ADVAIR HFA 115/21 MCG PER PUFF IH SCH ×2 (07:31→20:17)
[2018-11-22] MEDS: FINASTERIDE (PROSCAR) 5 MG TAB PO SCH (08:16)
[2018-11-22] MEDS: SENNA W/DOCUSATE (SENOKOT S) TABLET PO SCH ×3 (08:16→20:51)
[2018-11-22] MEDS: TAMSULOSIN 0.4 MG (FLOMAX) CAP PO SCH ×2 (08:16→20:51)
[2018-11-22] MEDS: POLYETHYLENE GLYCOL 17 GM (MIRALAX) PACK PO SCH ×2 (08:20→20:50)
[2018-11-22] MEDS: ACETAMINOPHEN 500 MG TAB (TYLENOL) PO PRN ×3 (08:33→20:53)
--- NOTE | 2018-11-22 09:56 | Physical Therapy Daily Note ---
PT Daily Note-Current Subjective Patient in recliner pre tx, agrees to PT, has no complaints of pain. Appearance Patient in chair in common area with his family post tx. Mental Status Patient Orientation: Normal For Age cervical collar Transfers Therapy Code Descriptions/Definitions Functional [place] Measure: 0=Not Assessed/NA 4=Minimal Assistance 1=Total Assistance 5=Supervision or Setup 2=Maximal Assistance 6=Modified [place] 3=Moderate Assistance 7=Complete [place] Therapy Quality Codes: 6 Independent with activity with or without an assistive device 5 Patient requires set up or clean up by helper. Patient completes activity by themselves 4 Supervision or touching assist (CGA). [place] provide cues , steadying assist 3 The helper provides less than half the effort to complete the activity 2 The helper provides more than half the effort to complete the activity 1 Dependent. The helper does all the effort to complete an activity 7 Patient refused to complete or attempt activity 9 The patient did not perform the activity before the current illness or injury 88 Not attempted due to Medical conditions or safety concerns Transfers (B, C, W/C) (FIM): 5 Scootin Rollin Roll Left to Right (QC): 6 Supine to/from Sit: 6 Sit to/from Stand: 5 Sit to Lying (QC): 6 Sit to Stand (QC): 4 Chair/Kkc-th-Koxxt Xfer(QC): 4 Bed to/from Chair: 5 Car Transfer (QC): 4 Patient performs bed mobility with mod I, supine <-> sit with mod I, sit <-> stand with SBA, transfers SBA, car transfer SBA. Occasional cues for hand placement or direction. Weight Bearing Weight Bearing/Tolerated Weight Bearing/Tolerated Gait Training Gait (FIM): 5 Distance: 220', 150' Walk 10 feet (QC): 4 Walk 50 ft with 2 Turns(QC): 4 Walk 150 ft (QC): 4 Walking 10ft/uneven surface-QC: 4 Gait Level of Assist: 5 Gait Persons Needed: 1 Gait Assistive Device: FWW Patient can ambulate 220' with a rolling walker with SBA (including 50' with at least 2 turns of 90 degrees and 10' over an uneven surface). Occasional moments of unsteadiness but improved steadiness overall. Stair Training Stair Training: Handrails/: 2 handrails Stairs (FIM): 5 (household exception) #of Steps: 8 1 Step (curb) (QC): 4 4 Steps (QC): 4 Stairs: Pattern: Step to Level of Assist: 5 Patient can go up and down 8 steps using 2 handrails with SBA. Cues for safety and positioning. Exercises Standing: Hip Abduction, Heel/toe raises, Mini squats, Step-ups (x10) Standing Reps: 15 LAQ alternating for 5 min NuStep Minutes: 15 NuStep Workload: 5 Treatments bed mobility and transfers, ambulation, stair training, LE exercise Assessment Current Status: Fair Progress improved supine to sit and stability during activity PT Short Term Goals Short Term Goals Time Frame: Nov 16, 2018 Gait (FIM): 4 (met) Gait Distance Comment: 200' Gait Level of Assist: 4 Gait Assistive Device: FWW PT Half-Way Goals Half-Way Goals PT Half-Way Goals Time Frame: Nov 30, 2018 Transfers (B,C,W/C) (FIM): 5 Sit to Lying (QC): 6 Lying-Sitting on Side/Bed(QC): 6 Sit to Stand (QC): 4 Rollin Roll Left to Right (QC): 6 Chair/Fwx-kw-Epjeo Xfer(QC): 4 Car Transfer (QC): 4 Gait (FIM): 5 Distance: 300' Walk 10 feet (QC): 4 Walk 10ft-Uneven Surface(QC): 4 Walk 50ft with 2 Turns (QC): 4 Walk 150 ft (QC): 4 Gait Level of Assist: 5 Gait Assistive Device: FWW Stairs (FIM): 2 # of Steps: 4 1 Step (curb) (QC): 4 4 Steps (QC): 4 Stairs Level Of Assist: 5 PT Plan Problem List Problem List: Activity Tolerance, Functional Strength, Safety, Balance, Gait, Transfer Treatment/Plan Treatment Plan: Continue Plan of Care Treatment Plan: Bed Mobility, Education, Functional Activity Mann, Functional Strength, Group Therapy, Gait, Safety, Therapeutic Exercise, Transfers Treatment Duration: Nov 30, 2018 Frequency: At least 5 of 7 days/Wk (IRF) Estimated Hrs Per Day: 1.5 hours per day Patient and/or Family Agrees t: Yes Safety Risks/Education Patient Education: Gait Training, Transfer Techniques, Steps, Correct Positioning, Safety Issues Teaching Recipient: Patient Teaching Methods: Demonstration, Discussion Response to Teaching: Reinforcement Needed Time/GCodes Time In: 0900 Time Out: 1000 Total Billed Treatment Time: 60 Total Billed Treatment 1 visit EX 30' FA 10' GT 20' OSORIO LOCKHART PT Nov 22, 2018 09:56
[2018-11-22] MEDS ORDERED: HYDROCORTISONE 1% TP PRN (10:00)
--- NOTE | 2018-11-22 10:23 | PM&R Progress Note ---
Subjective HPI/CC On Admission Date Seen by Provider: Nov 22, 2018 Time Seen by Provider: 09:00 Chief complaint: Cervical spine stenosis status post predictable injury with upper extremity weakness History of present illness: This is an 78-year-old white male of Dr. Velarde in [facility] who is known to me from cervical spine surgery by Dr. Starr on 11/02/2018 at [facility] who is had a long wait for insurance approval from [facility] to be admitted to inpatient rehab due to severe cervical spine muscle weakness of the arms and legs. He had such severe stenosis that he has residual neurologic deficit to the upper extremities more than lower extremities. His bowels or not moving well but they did about 4 days ago he has not had any lung problems or prostate problems during his hospital course and [place] [facility] [place] [facility] [place]. He thinks that he gets too drowsy with taking 2 of the hydrocodone pain pills in addition for the muscle relaxant so will decrease the dose on both but keep him comfortable nonetheless. His prior level of functioning was independent without the use of assistive devices and he will return home with his and supportive family. Subjective/Events-last exam Discharge is planned for tomorrow. Right shoulder rash, he uses Hydrocortisone at home so will order that. Decreased Lortab use noted so that is really good that he is relying on Tylenol. Has a BM on 11/20. Dr. Payan will perform bladder tumor resection on 12/06/18. Conferred with RN Checked meds and labs Reviewed therapy notes Review of Systems Neurological: Weakness Objective Exam Vital Signs Vital Signs Date Time Temp Pulse Resp B/P (MAP) Pulse Ox O2 Delivery O2 Flow Rate FiO2 11/22/18 17:18 36.4 81 20 114/73 (87) 97 Room Air Capillary Refill : Less Than 3 Seconds General Appearance: No Apparent Distress, WD/WN, Chronically ill, Thin HEENT: PERRL/EOMI, Normal ENT Inspection, Pharynx Normal, Moist Mucous Membranes Neck: Full Range of Motion, Normal Inspection, Non Tender, Supple Respiratory: Chest Non Tender, Lungs Clear, Normal Breath Sounds, No Accessory Muscle Use, No Respiratory Distress Cardiovascular: Regular Rate, Rhythm, No Edema, No Gallop, No JVD, No Murmur Gastrointestinal: No Organomegaly, No Pulsatile Mass, Non Tender, Soft, Abnormal Bowel Sounds, Distended Back: Normal Inspection, No CVA Tenderness, No Vertebral Tenderness Extremity: Normal Capillary Refill, Normal Inspection, Normal Range of Motion, Non Tender, No Calf Tenderness, No Pedal Edema Neurologic/Psychiatric: Alert, Oriented x3, Normal Mood/Affect, signal wirer II-XII Norm as Tested, Motor Weakness (upper extremities 2/5 bilateral, legs 4/5) Skin: Normal Color, Warm/Dry Lymphatic: No Adenopathy Results/Procedures Lab Patient resulted labs reviewed. FIM Transfers Therapy Code Descriptions/Definitions Functional [place] Measure: 0=Not Assessed/NA 4=Minimal Assistance 1=Total Assistance 5=Supervision or Setup 2=Maximal Assistance 6=Modified [place] 3=Moderate Assistance 7=Complete [place] Therapy Quality Codes: 6 Independent with activity with or without an assistive device 5 Patient requires set up or clean up by helper. Patient completes activity by themselves 4 Supervision or touching assist (CGA). [place] provide cues , steadying assist 3 The helper provides less than half the effort to complete the activity 2 The helper provides more than half the effort to complete the activity 1 Dependent. The helper does all the effort to complete an activity 7 Patient refused to complete or attempt activity 9 The patient did not perform the activity before the current illness or injury 88 Not attempted due to Medical conditions or safety concerns Transfers (B, C, W/C) (FIM): 5 Scootin Rollin Roll Left to Right (QC): 6 Supine to/from Sit: 6 Sit to/from Stand: 5 Sit to Lying (QC): 6 Sit to Stand (QC): 4 Chair/Pko-ae-Mdlvd Xfer(QC): 4 Bed to/from Chair: 5 Car Transfer (QC): 4 Gait Training Does the Patient Walk?: Yes Gait (FIM): 5 Distance (FIM): 3=150 ft Distance: 220', 150' Walk 10 feet (QC): 4 Walk 50 ft with 2 Turns(QC): 4 Walk 150 ft (QC): 4 Walking 10ft/uneven surface-QC: 4 Gait Level of Assist: 5 Gait Persons Needed: 1 Gait Assistive Device: FWW Wheelchair Training Does the Pt Use a Wheelchair?: No Stair Training Stair Training: Handrails/: 2 handrails Stairs (FIM): 5 (household exception) #of Steps: 8 1 Step (curb) (QC): 4 4 Steps (QC): 4 Stairs: Pattern: Step to Level of Assist: 5 Mental Status/Objective Comprehension: 7 Expression: 7 Social Interaction: 7 Problem Solvin Memory: 7 ADL-Treatment Feedin (setup) Eating (QC): 4 (cues and s/u) Groomin (Pt able to complete face hygiene (just reaching from mouth to eyes) with s/u due to decreased coordination and inability to open packaging. ) Oral Hygiene (QC): 4 Bathin Bathing Location: L Upper Leg, R Upper Leg, L Lower Leg (including foot), R Lower Leg (including foot), Chest, Abdomen, Perineal Area Shower/Bathe Self (QC): 3 Upper Extremity Dressin Upper Body Dressing (QC): 3 Lower Extremity Dressin Lower Body Dressing (QC): 3 On/Off Footwear (QC): 4 (cues during task) Toiletin Toileting Hygiene (QC): 3 Toilet/Commode Transfer: 4 (CGA) Toilet Transfer (QC): 4 (CGA) Shower: 4 Assessment/Plan Assessment and Plan Assess & Plan/Chief Complaint Assessment: Cervical spine injury Extremity weakness Constipation resolved but maintained on meds Asthma BPH Bladder mass Plan: Monitor lungs BM regimen to be maintained on regular scheduled basis Urology consultation is appreciated and christina since the cysto dx bladder tumor Feeding self now and doing better Monitor for falls Discharge plan for Wednesday (1) Cervical spinal stenosis Status: Acute (2) Constipation Status: Acute Qualifiers: Constipation type: slow transit constipation Qualified Codes: K59.01 - Slow transit constipation (3) Asthma Status: Chronic Qualifiers: Asthma severity: moderate Asthma persistence: unspecified Asthma complication type: unspecified Qualified Codes: J45.909 - Unspecified asthma, uncomplicated (4) Bilateral arm weakness Status: Acute (5) Injury of cervical spine Status: Acute Qualifiers: Encounter type: subsequent encounter Qualified Codes: S14.109D - Unspecified injury at unspecified level of cervical spinal cord, subsequent encounter (6) BPH (benign prostatic hyperplasia) Status: Chronic Qualifiers: Lower urinary tract symptom presence: symptoms absent Qualified Codes: N40.0 - Benign prostatic hyperplasia without lower urinary tract symptoms (7) Risk for falls Status: Acute (8) Bladder mass MAYRA TORREZ DO Nov 22, 2018 10:23
--- NOTE | 2018-11-22 10:52 | Progress Note ---
[facility] LEE [facility] 11/22/18 1052: Progress Note Pt is excited about the improvement he has made since being in the inpatient rehab unit. * He is unable to lift his arms above the mid chest region without assistance which has been his main obstacle to recovery. * He is able to drop his pants and pull them up again for the first time today. * He moves around using a walker currently and is able to stand from seated unassisted. * The patient and his family states they have a walker at home and the home is one floor with a ramp to the front door. * He was able to get out of the bed by himself today during his OT session. Pt states he does still have a few limitations * He is not able to get dressed without some assistance. * He needs some assistance bathing, but states they have a walk in shower and have ordered hand rails to be installed. * He is unable to use the telephone at this time due to not being able to dial the numbers accurately. * He complains of loss of strength and dexterity in his hands. CALISTA TORREZ DO 11/22/18 2003: Supervisory-Addendum Brief Verification & Attestation Participated in pt care: history, MDM, physical Personally performed: exam, history, MDM, supervision of care Care discussed with: Medical Student Procedures: n/a Results interpretation: Verified all documentation Verification and Attestation of Medical Student E/M Service A medical student performed and documented this service in my presence. I reviewed and verified all information documented by the medical student and made modifications to such information, when appropriate. I personally performed the physical exam and medical decision making. Calista Torrez, Nov 22, 2018,20:03 CORBY LEE Nov 22, 2018 10:52 CALISTA TORREZ DO Nov 22, 2018 20:03
[2018-11-22] MEDS ORDERED: HYDROCORTISONE 1% CREAM 30 GM TUBE TOP PRN (12:00)
--- NOTE | 2018-11-22 13:58 | NUR ---
Referral submitted to [facility] for PT/OT/RN. Forge Operator Helper states she will have to receive authorization from patient's primary insurance provider, [employer]. Clinical information and discharge plan information submitted to [place], for rehabilitation stay. Will continue to follow.
--- NOTE | 2018-11-22 14:06 | Occupational Ther Daily Note ---
OT Current Status-Daily Note Subjective No pain reported. Appearance Pt. up in chair. Agrees to work with OT. Mental Status/Objective Patient Orientation: Person, Place, Time, Situation Therapy Code Descriptions/Definitions Functional [place] Measure: 0=Not Assessed/NA 4=Minimal Assistance 1=Total Assistance 5=Supervision or Setup 2=Maximal Assistance 6=Modified [place] 3=Moderate Assistance 7=Complete [place] ADL-Treatment Therapy Code Descriptions/Definitions Functional [place] Measure: 0=Not Assessed/NA 4=Minimal Assistance 1=Total Assistance 5=Supervision or Setup 2=Maximal Assistance 6=Modified [place] 3=Moderate Assistance 7=Complete [place] Therapy Quality Codes: 6 Independent with activity with or without an assistive device 5 Patient requires set up or clean up by helper. Patient completes activity by themselves 4 Supervision or touching assist (CGA). [place] provide cues , steadying assist 3 The helper provides less than half the effort to complete the activity 2 The helper provides more than half the effort to complete the activity 1 Dependent. The helper does all the effort to complete an activity 7 Patient refused to complete or attempt activity 9 The patient did not perform the activity before the current illness or injury 88 Not attempted due to Medical conditions or safety concerns Eating (FIM): 5 (Set up with AE.) Eating (QC): 5 Grooming (FIM): 3 (Assist from spouse.) Oral Hygiene (QC): 3 Bathing (FIM): 3 (Assist from spouse. Spouse assisted with shower, to simulate as it will be at home.) Shower/Bathe Self (QC): 3 Upper Body (FIM): 3 Upper Body Dressing (QC): 3 Lower Body Dressing (FIM): 3 Lower Body Dressing (QC): 3 On/Off Footwear (QC): 4 Toileting (FIM): 3 (Assist from his spouse.) Toileting Hygiene (QC): 3 Transfers (B, C, W/C) (FIM): 6 Toilet/Commode Transfer (FIM): 6 Toilet Transfer (QC): 6 Shower Transfer(FIM): 5 Other Treatment Spouse assists pt. in shower with ADLS, as she will be assisting him at home. Spouse assists with tasks that pt. is unable to complete, but allows pt. to do for himself for those tasks that he can. After ADLs, pt. ambulated to therapy gym. Completed bilateral UE PROM with pt. in all planes, and available ranges. Pt. able to tolerate gentle full range. Completed balaji system for AAROM to bilateral shoulders. Tolerated fine motor task of therapy pegs into peg board. Pt. verbalizes that coordination is difficult. Pt. educated on multiple activi ties that he can complete at home for increased fine motor coordination and strengthening. These tasks included tip pinch activities, lateral pinch, and coordination tasks with paperclips and beads. Pt. verbalizes understanding of fine motor coordination skills and activities. All needs met back in room. Education OT Patient Education: Correct positioning, Exercise program, Modified ADL techniques, Progress toward Goal/Update tx plan, Purpose of tx/functional activities, Reviewed precautions, Rehab process, Transfer techniques, Use of adapted equipment Teaching Recipient: Patient, Family Teaching Methods: Demonstration, Discussion Response to Teaching: Verbalize Understanding, Return Demonstration OT Short Term Goals Short Term Goals Time Frame: Nov 16, 2018 Eating(FIM): 3 (mt) Grooming(FIM): 3 (met) Upper Body Dressing(FIM): 3 Lower Body Dressing(FIM): 3 Toilet/Commode Transfer(FIM): 4 (CGA) Additional Short Term Goals: 1-Demonstrate ADL Tasks, 2-Verbalize Understanding, 3-ImproveStrength/Mann 1=Demonstrate adherence to instructed precautions during ADL tasks. 2=Patient will verbalize/demonstrate understanding of assistive devices/modifications for ADL. 3=Patient will improve strength/tolerance for activity to enable patient to perform ADL's. OT Fci Goals Inverform Machine Operator Goals Time Frame: Nov 30, 2018 Eating (FIM): 5 (met) Eating (QC): 5 Groomin (met) Oral Hygiene (QC): 5 Bathing(FIM): 5 Shower/Bathe Self (QC): 4 Upper Body Dressing(FIM): 5 Upper Body Dressing (QC): 5 Lower Body Dressing(FIM): 5 Lower Body Dressing (QC): 4 On/Off Footwear (QC): 5 (met) Toileting(FIM): 5 Toileting Hygiene (QC): 5 Toilet/Commode Transfer(FIM): 5 Toilet/Commode Transfer (QC): 5 Shower Transfer(FIM): 5 Additional Goals: 1-Demonstrate ADL Tasks, 2-Verbalize Understanding, 3- ImproveStrength/Mann 1=Demonstrate adherence to instructed precautions during ADL tasks. 2=Patient will verbalize/demonstrate understanding of assistive devices/modifications for ADL. 3=Patient will improve strength/tolerance for activity to enable patient to perform ADL's. OT Education/Plan Problem List/Assessment Assessment: Decreased Activ Tolerance, Impaired I ADL's, Impaired Self-Care Skills, Restricted Funct UE ROM Discharge Recommendations Plan/Recommendations: Continue POC Therapy Discharge Recommendati: Post Acute OT Treatment Plan/Plan of Care Treatment,Training & Education: Yes Patient would benefit from OT for education, treatment and training to promote independence in ADL's, mobility, safety and/or upper extremity function for ADL's. Plan of Care: ADL Retraining, Functional Mobility, Group Exercise/Act as Ind, UE Funct Exercise/Act, UE Neuromus Re-Ed/Coord Treatment Duration: Nov 30, 2018 Frequency: At least 5 of 7 days/Wk (IRF) Estimated Hrs Per Day: 1.5 hours per day Agreement: Yes Rehab Potential: Good Time/GCodes Start Time: 10:30 Stop Time: 12:00 Total Time Billed (hr/min): 90 Billed Treatment Time 1, ADL x 45minutes, Ex x 45minutes NATALIE US OT Nov 22, 2018 14:06
--- NOTE | 2018-11-22 14:36 | Physical Therapy Daily Note ---
PT Daily Note-Current Subjective Patient needs to use the restroom for BM and does so but needs assist with wiping. Patient has no complaints of pain, agrees to PT. Appearance Patient in recliner post tx with nurse call, phone, tray, all needs met. Mental Status Patient Orientation: Normal For Age cervical collar Transfers Therapy Code Descriptions/Definitions Functional [place] Measure: 0=Not Assessed/NA 4=Minimal Assistance 1=Total Assistance 5=Supervision or Setup 2=Maximal Assistance 6=Modified [place] 3=Moderate Assistance 7=Complete [place] Therapy Quality Codes: 6 Independent with activity with or without an assistive device 5 Patient requires set up or clean up by helper. Patient completes activity by themselves 4 Supervision or touching assist (CGA). [place] provide cues , steadying assist 3 The helper provides less than half the effort to complete the activity 2 The helper provides more than half the effort to complete the activity 1 Dependent. The helper does all the effort to complete an activity 7 Patient refused to complete or attempt activity 9 The patient did not perform the activity before the current illness or injury 88 Not attempted due to Medical conditions or safety concerns Sit to Stand (QC): 4 Chair/Gbb-bd-Dglpz Xfer(QC): 4 SBA even from lower surfaces Weight Bearing Weight Bearing/Tolerated Weight Bearing/Tolerated Gait Training Walk 10 feet (QC): 4 Walk 50 ft with 2 Turns(QC): 4 Walk 150 ft (QC): 4 Gait Level of Assist: 5 Gait Persons Needed: 1 Gait Assistive Device: FWW Patient ambulated 200'x2 with a rolling walker with SBA, improving stability and balance Exercises sit to stands from chair 2 sets of 10 Treatments LE exercise, ambulation, toileting Assessment Current Status: Fair Progress improving LE strength PT Short Term Goals Short Term Goals Time Frame: Nov 16, 2018 Gait (FIM): 4 (met) Gait Distance Comment: 200' Gait Level of Assist: 4 Gait Assistive Device: FWW PT Small Parts Shaper Operator Goals Jail Goals PT Small Parts Shaper Operator Goals Time Frame: Nov 30, 2018 Transfers (B,C,W/C) (FIM): 5 Sit to Lying (QC): 6 Lying-Sitting on Side/Bed(QC): 6 Sit to Stand (QC): 4 Rollin Roll Left to Right (QC): 6 Chair/Kmf-hl-Uzxkz Xfer(QC): 4 Car Transfer (QC): 4 Gait (FIM): 5 Distance: 300' Walk 10 feet (QC): 4 Walk 10ft-Uneven Surface(QC): 4 Walk 50ft with 2 Turns (QC): 4 Walk 150 ft (QC): 4 Gait Level of Assist: 5 Gait Assistive Device: FWW Stairs (FIM): 2 # of Steps: 4 1 Step (curb) (QC): 4 4 Steps (QC): 4 Stairs Level Of Assist: 5 PT Plan Problem List Problem List: Activity Tolerance, Functional Strength, Safety, Balance, Gait, Transfer, Bed Mobility Treatment/Plan Treatment Plan: Continue Plan of Care Treatment Plan: Bed Mobility, Education, Functional Activity Mann, Functional Strength, Group Therapy, Gait, Safety, Therapeutic Exercise, Transfers Treatment Duration: Nov 30, 2018 Frequency: At least 5 of 7 days/Wk (IRF) Estimated Hrs Per Day: 1.5 hours per day Patient and/or Family Agrees t: Yes Safety Risks/Education Patient Education: Gait Training, Transfer Techniques, Correct Positioning, Safety Issues Teaching Recipient: Patient Teaching Methods: Demonstration, Discussion Response to Teaching: Reinforcement Needed Time/GCodes Time In: 1400 Time Out: 1430 Total Billed Treatment Time: 30 Total Billed Treatment 1 visit FA 15' GT 15' OSORIO LOCKHART PT Nov 22, 2018 14:36
[2018-11-22 17:18] VITALS: BP 114/73
[2018-11-22] MEDS ORDERED: TAMS0.4C98 PO (20:07)
[2018-11-22] MEDS ORDERED: FINA5TAB PO (20:08)
[2018-11-22] MEDS ORDERED: SENN-20 PO (20:08)
[2018-11-22] MEDS ORDERED: DICL100G18 TOP (20:08)
[2018-11-22] MEDS ORDERED: ACHD5005 PO (20:08)
[2018-11-22] MEDS ORDERED: SULF1TAB35 PO (20:08)
[2018-11-22] MEDS ORDERED: BACL10TA PO (20:08)
--- NOTE | 2018-11-22 20:10 | Discharge Summary ---
Discharge Summary Reconcile Patient Problems Problems Reviewed?: Yes Instructions for Patient Home Health Assessment/Instructions Dr Payan pre op 12/05/18 and surgery 12/06/18 Physician to follow Patient: PCP Discharge Diet for Home: No Restrictions Hospital Course Date of Admission: Nov 08, 2018 at 17:48 Admission Diagnosis : Family Physician/Provider: No,Local Physician Date of Discharge: 11/22/18 Discharge Diagnosis: cervical spine injury non-traumatic, asthma, bladder nodule Labs and Pending Lab Test: Home Meds Active Reported Tylenol Extra Strength (Acetaminophen) 500 Mg Tablet 500 Mg PO BID Advair 250-50 Diskus (Fluticasone/Salmeterol) 1 Each Blst.w.dev 1 Puff IH DAILY Colace (Docusate Sodium) 100 Mg Capsule 100 Mg PO DAILY Flomax (Tamsulosin HCl) 0.4 Mg Cap 0.4 Mg PO BID Patient Allergies: Coded Allergies: No Known Drug Allergies (Unverified , 11/08/18) Home Health Need/Face to Face Date of Face to Face: Nov 22, 2018 Clinical Findings: Generalized weakness and fatigue, Instability, Muscle weakness, Unsteady gait I have seen Pt [id number]: Yes Discharged To: Home Diagnosis/Conditions: Cervical spine injury Fall risk Bladder nodule Patient is Homebound due to: Mathew fall risk due to instabilty, Muscle weakness Homebound Status Due to the above stated illness, injury or surgical procedure (medical condition or diagnosis) and associated clinical findings, the patient is homebound because of his/her inability to leave home except with aid of a supportive device and/or person AND leaving the home requires a considerable and taxing effort or is medically contraindicated. Pt req the following assistanc: Walker Home Health Nursing Orders Home Health Services Order: Special Events Coordinator-Evaluate & Treat, Physical Therapy-Evaluate & Treat Certify Stmt I certify that this patient is under my care and that I, a nurse practitioner or a physician; a certified teacher assistant working with me, had a face to face encounter that - meets the physician face to face encounter requirements with this patient as dated. MAYRA TORREZ DO Nov 22, 2018 20:10
[2018-11-22] MEDS: HYDROcodone/APAP 5 MG/325 MG (LORTAB) TAB PO PRN (23:40)
[2018-11-23 05:12] VITALS: BP 138/78
[2018-11-23] MEDS: TRIM/SULFAMETH 160/800 (SEPTRA DS) TAB PO SCH (06:47)
[2018-11-23] MEDS: HYDROcodone/APAP 5 MG/325 MG (LORTAB) TAB PO PRN (06:56)
[2018-11-23] MEDS: TAMSULOSIN 0.4 MG (FLOMAX) CAP PO SCH (08:29)
[2018-11-23] MEDS: FINASTERIDE (PROSCAR) 5 MG TAB PO SCH (08:29)
[2018-11-23] MEDS: POLYETHYLENE GLYCOL 17 GM (MIRALAX) PACK PO SCH (08:31)
[2018-11-23] MEDS: SENNA W/DOCUSATE (SENOKOT S) TABLET PO SCH (08:31)
--- NOTE | 2018-11-23 08:37 | PM&R Progress Note ---
Subjective HPI/CC On Admission Date Seen by Provider: Nov 23, 2018 Time Seen by Provider: 07:00 Chief complaint: Cervical spine stenosis status post predictable injury with upper extremity weakness History of present illness: This is an 78-year-old white male of Dr. Velarde in [facility] who is known to me from cervical spine surgery by Dr. Starr on 11/02/2018 at [facility] who is had a long wait for insurance approval from [facility] to be admitted to inpatient rehab due to severe cervical spine muscle weakness of the arms and legs. He had such severe stenosis that he has residual neurologic deficit to the upper extremities more than lower extremities. His bowels or not moving well but they did about 4 days ago he has not had any lung problems or prostate problems during his hospital course and [facility] at [facility] [place]. He thinks that he gets too drowsy with taking 2 of the hydrocodone pain pills in addition for the muscle relaxant so will decrease the dose on both but keep him comfortable nonetheless. His prior level of functioning was independent without the use of assistive devices and he will return home with his and supportive family. Subjective/Events-last exam Discharge is planned for tomorrow. Right shoulder rash, he uses Hydrocortisone at home so will order that. Decreased Lortab use noted so that is really good that he is relying on Tylenol. Has a BM on 11/20. Dr. Payan will perform bladder tumor resection on 12/06/18. Conferred with RN Checked meds and labs Reviewed therapy notes Objective Exam Vital Signs Vital Signs Date Time Temp Pulse Resp B/P (MAP) Pulse Ox O2 Delivery O2 Flow Rate FiO2 11/23/18 10:12 36.8 81 20 138/78 97 Room Air Capillary Refill : Less Than 3 Seconds General Appearance: No Apparent Distress, WD/WN, Chronically ill, Thin HEENT: PERRL/EOMI, Normal ENT Inspection, Pharynx Normal, Moist Mucous Membranes Neck: Full Range of Motion, Normal Inspection, Non Tender, Supple Respiratory: Chest Non Tender, Lungs Clear, Normal Breath Sounds, No Accessory Muscle Use, No Respiratory Distress Cardiovascular: Regular Rate, Rhythm, No Edema, No Gallop, No JVD, No Murmur Gastrointestinal: No Organomegaly, No Pulsatile Mass, Non Tender, Soft, Abnormal Bowel Sounds, Distended Back: Normal Inspection, No CVA Tenderness, No Vertebral Tenderness Extremity: Normal Capillary Refill, Normal Inspection, Normal Range of Motion, Non Tender, No Calf Tenderness, No Pedal Edema Neurologic/Psychiatric: Alert, Oriented x3, Normal Mood/Affect, garnett feeder II-XII Norm as Tested, Motor Weakness (upper extremities 2/5 bilateral, legs 4/5) Skin: Normal Color, Warm/Dry Lymphatic: No Adenopathy Results/Procedures Lab Patient resulted labs reviewed. FIM Transfers Therapy Code Descriptions/Definitions Functional [place] Measure: 0=Not Assessed/NA 4=Minimal Assistance 1=Total Assistance 5=Supervision or Setup 2=Maximal Assistance 6=Modified [place] 3=Moderate Assistance 7=Complete [place] Therapy Quality Codes: 6 Independent with activity with or without an assistive device 5 Patient requires set up or clean up by helper. Patient completes activity by themselves 4 Supervision or touching assist (CGA). [place] provide cues , steadying assist 3 The helper provides less than half the effort to complete the activity 2 The helper provides more than half the effort to complete the activity 1 Dependent. The helper does all the effort to complete an activity 7 Patient refused to complete or attempt activity 9 The patient did not perform the activity before the current illness or injury 88 Not attempted due to Medical conditions or safety concerns Transfers (B, C, W/C) (FIM): 6 Scootin Rollin Roll Left to Right (QC): 6 Supine to/from Sit: 6 Sit to/from Stand: 5 Sit to Lying (QC): 6 Sit to Stand (QC): 4 Chair/Kpp-sm-Uixal Xfer(QC): 4 Bed to/from Chair: 5 Car Transfer (QC): 4 Gait Training Does the Patient Walk?: Yes Gait (FIM): 5 Distance (FIM): 3=150 ft Distance: 220', 150' Walk 10 feet (QC): 4 Walk 50 ft with 2 Turns(QC): 4 Walk 150 ft (QC): 4 Walking 10ft/uneven surface-QC: 4 Gait Level of Assist: 5 Gait Persons Needed: 1 Gait Assistive Device: FWW Wheelchair Training Does the Pt Use a Wheelchair?: No Stair Training Stair Training: Handrails/: 2 handrails Stairs (FIM): 5 (household exception) #of Steps: 8 1 Step (curb) (QC): 4 4 Steps (QC): 4 Stairs: Pattern: Step to Level of Assist: 5 Mental Status/Objective Comprehension: 7 Expression: 7 Social Interaction: 7 Problem Solvin Memory: 7 ADL-Treatment Feedin (Set up with AE.) Eating (QC): 5 Groomin (Assist from spouse.) Oral Hygiene (QC): 3 Bathin (Assist from spouse. Spouse assisted with shower, to simulate as it will be at home.) Bathing Location: L Upper Leg, R Upper Leg, L Lower Leg (including foot), R Lower Leg (including foot), Chest, Abdomen, Perineal Area Shower/Bathe Self (QC): 3 Upper Extremity Dressin Upper Body Dressing (QC): 3 Lower Extremity Dressin Lower Body Dressing (QC): 3 On/Off Footwear (QC): 4 Toiletin (Assist from his spouse.) Toileting Hygiene (QC): 3 Toilet/Commode Transfer: 6 Toilet Transfer (QC): 6 Shower: 5 Assessment/Plan Assessment and Plan Assess & Plan/Chief Complaint Assessment: Cervical spine injury Extremity weakness Constipation resolved but maintained on meds Asthma BPH Bladder mass Plan: Monitor lungs BM regimen to be maintained on regular scheduled basis Urology consultation is appreciated and christina since the cysto dx bladder tumor Feeding self now and doing better Monitor for falls Discharge plan for Wednesday (1) Cervical spinal stenosis Status: Acute (2) Constipation Status: Acute Qualifiers: Constipation type: slow transit constipation Qualified Codes: K59.01 - Slow transit constipation (3) Asthma Status: Chronic Qualifiers: Asthma severity: moderate Asthma persistence: unspecified Asthma complication type: unspecified Qualified Codes: J45.909 - Unspecified asthma, uncomplicated (4) Bilateral arm weakness Status: Acute (5) Injury of cervical spine Status: Acute Qualifiers: Encounter type: subsequent encounter Qualified Codes: S14.109D - Unspecified injury at unspecified level of cervical spinal cord, subsequent encounter (6) BPH (benign prostatic hyperplasia) Status: Chronic Qualifiers: Lower urinary tract symptom presence: symptoms absent Qualified Codes: N40.0 - Benign prostatic hyperplasia without lower urinary tract symptoms (7) Risk for falls Status: Acute (8) Bladder mass MAYRA TORREZ DO Nov 23, 2018 08:37
[2018-11-23] MEDS: RT-ADVAIR HFA 115/21 MCG PER PUFF IH SCH (09:07)
--- NOTE | 2018-11-23 10:07 | Therapy Team Discharge Summary ---
Therapy Discharge Summary Discharge Recommendations Date of Discharge 11-23-18 Therapy D/C Recommendations: Home w/ Family Support, Occupational Therapy Home Care Occupational Therapy Pt. has been seen by occupational therapy to increase overall strength and independence with daily tasks. Pt. did not meet most goals for independence on his own, but did meet the goal of being independent with spouse support at home. Spouse and pt. have demonstrated ability to perform tasks together for safety during ADL skills. Pt. has been educated on HEP, and spouse has been educated on performing UE PROM. All equipment has been obtained. Recommend further OT treatment for increased UE ROM and independence with ADL skills. Impaired I ADL's, Impaired Self-Care Skills, Restricted Funct UE ROM PT Snf Goals Hand Cell Tuber Goals PT Hand Cell Tuber Goals Time Frame: Nov 30, 2018 Transfers (B,C,W/C) (FIM): 5 Roll Left to Right (QC): 6 Sit to Lying (QC): 6 Lying-Sitting on Side/Bed(QC): 6 Sit to Stand (QC): 4 Chair/Dgi-ut-Slmxt Xfer(QC): 4 Car Transfer (QC): 4 Gait (FIM): 5 Distance: 300' Walk 10 feet (QC): 4 Walk 10ft-Uneven Surface(QC): 4 Walk 50ft with 2 Turns (QC): 4 Walk 150 ft (QC): 4 Gait Level of Assist: 5 Gait Assistive Device: FWW Stairs (FIM): 2 # of Steps: 4 1 Step (curb) (QC): 4 4 Steps (QC): 4 Stairs Level Of Assist: 5 OT Hand Cell Tuber Goals Hand Cell Tuber Goals Time Frame: Nov 30, 2018 Eating (FIM): 5 (met) Eating (QC): 5 (met) Oral Hygiene (QC): 5 (not met) Grooming(FIM): 5 (not met) Bathing(FIM): 5 (not met) Shower/Bathe Self (QC): 4 (not met) Upper Body Dressing(FIM): 5 (not met) Upper Body Dressing (QC): 5 (not met) Lower Body Dressing(FIM): 5 (not met) Lower Body Dressing (QC): 4 (not met) On/Off Footwear (QC): 5 (not met) Toileting(FIM): 5 (not met) Toileting Hygiene (QC): 5 (not met) Toilet/Commode Transfer(FIM): 5 (not met) Toilet/Commode Transfer (QC): 5 (not met) Shower Transfer(FIM): 5 (not met) Additional Goals: 1-Demonstrate ADL Tasks, 2-Verbalize Understanding, 3- ImproveStrength/Mann 1=Demonstrate adherence to instructed precautions during ADL tasks. 2=Patient will verbalize/demonstrate understanding of assistive devices/modifications for ADL. 3=Patient will improve strength/tolerance for activity to enable patient to perform ADL's. NATALIE US OT Nov 23, 2018 10:07
[2018-11-23 10:12] VITALS: BP 138/78
--- NOTE | 2018-11-23 10:15 | Progress Note ---
[facility] 11/23/18 1015: Subjective Date Seen by a Provider: Nov 23, 2018 Time Seen by a Provider: 08:10 Subjective/Events-last exam The pt is excited to be going home and both he and his family are extremely thankful for the help the staff has been giving them. He has no significant changes from yesterday. He has PT/OT set up to come to his house to continue his therapy. His stated that a nurse will be coming to their house to inspect it in the next 48hrs. They have a wire coating machine operator coming on Wednesday to install a hand rail and new shower head. They have a walker at home and have obtained a few utensils that make eating easier as well. He is planning to be discharged at 10am with his and daughter. Objective Exam Last Set of Vital Signs Vital Signs Date Time Temp Pulse Resp B/P (MAP) Pulse Ox O2 Delivery O2 Flow Rate FiO2 11/23/18 09:07 96 Room Air 11/23/18 05:12 36.8 81 20 138/78 (98) Capillary Refill : Less Than 3 Seconds I&O Intake and Output 11/23/18 00:00 Intake Total 1700 ml Output Total 1700 ml Balance 0 ml Intake Oral 1700 ml Output Urine Total 1700 ml # Bowel Movements 1 Clinical Quality Measures DVT/VTE Risk/Contraindication: Risk Factor Score Per Nursin RFS Level Per Nursing on Admit: 4+=Very High CALISTA TORREZ DO 11/23/18 2101: Assessment/Plan Assessment/Plan Assess & Plan/Chief Complaint Debility Supervisory-Addendum Brief Verification & Attestation Participated in pt care: history, MDM, physical Personally performed: exam, history, MDM, supervision of care Care discussed with: Medical Student Procedures: n/a Results interpretation: Verified all documentation Verification and Attestation of Medical Student E/M Service A medical student performed and documented this service in my presence. I reviewed and verified all information documented by the medical student and made modifications to such information, when appropriate. I personally performed the physical exam and medical decision making. Calista Torrez, Nov 23, 2018,21:00 [facility] Nov 23, 2018 10:15 CALISTA TORREZ DO Nov 23, 2018 21:01
--- NOTE | 2018-11-23 13:51 | Therapy Team Discharge Summary ---
Therapy Discharge Summary Discharge Recommendations Date of Discharge Nov 23, 2018 at 09:45 Therapy D/C Recommendations: Home w/ Family Support, Occupational Therapy Home Care Physical Therapy This patient was seen on ARU post acute hospital stay after cervical surgery. Before surgery, pt was indep with all mobility. Upon admit to this unit, pt was min assist with transfers and gait and went up/down 1 step with assist. Treatment has consisted of funcional strength and balance activities to promote improved transfers and gait. At discharge he is SBA with gait and transfers and up/down 4 steps mod indep. PT has made excellent progress and is to discharge home this date with recommended HHC to follow. Occupational Therapy Impaired I ADL's, Impaired Self-Care Skills, Restricted Funct UE ROM PT Senior Living Goals Senior Living Goals PT Golf Stud Riveter Goals Time Frame: Nov 30, 2018 Transfers (B,C,W/C) (FIM): 5 (met) Roll Left to Right (QC): 6 Sit to Lying (QC): 6 Lying-Sitting on Side/Bed(QC): 6 Sit to Stand (QC): 4 Chair/Bkc-hh-Ygyup Xfer(QC): 4 Car Transfer (QC): 4 Gait (FIM): 5 (mwet) Distance: 300' Walk 10 feet (QC): 4 Walk 10ft-Uneven Surface(QC): 4 Walk 50ft with 2 Turns (QC): 4 Walk 150 ft (QC): 4 Gait Level of Assist: 5 Gait Assistive Device: FWW Stairs (FIM): 2 (exceeded) # of Steps: 4 1 Step (curb) (QC): 4 4 Steps (QC): 4 Stairs Level Of Assist: 5 All goals met to a satisfactory level. OT Senior Living Goals Senior Living Goals Time Frame: Nov 30, 2018 Eating (FIM): 5 (met) Eating (QC): 5 (met) Oral Hygiene (QC): 5 (not met) Grooming(FIM): 5 (not met) Bathing(FIM): 5 (not met) Shower/Bathe Self (QC): 4 (not met) Upper Body Dressing(FIM): 5 (not met) Upper Body Dressing (QC): 5 (not met) Lower Body Dressing(FIM): 5 (not met) Lower Body Dressing (QC): 4 (not met) On/Off Footwear (QC): 5 (not met) Toileting(FIM): 5 (not met) Toileting Hygiene (QC): 5 (not met) Toilet/Commode Transfer(FIM): 5 (not met) Toilet/Commode Transfer (QC): 5 (not met) Shower Transfer(FIM): 5 (not met) Additional Goals: 1-Demonstrate ADL Tasks, 2-Verbalize Understanding, 3- ImproveStrength/Mann 1=Demonstrate adherence to instructed precautions during ADL tasks. 2=Patient will verbalize/demonstrate understanding of assistive devices/modifications for ADL. 3=Patient will improve strength/tolerance for activity to enable patient to perform ADL's. TIFFANIE VIERA PT Nov 23, 2018 13:51
--- NOTE | 2018-11-23 21:04 | Discharge Summary ---
Diagnosis/Chief Complaint Date of Admission Nov 08, 2018 at 17:48 Date of Discharge Nov 23, 2018 at 09:45 Discharge Date: Nov 23, 2018 Discharge Diagnosis Assessment: Cervical spine injury Extremity weakness Constipation resolved but maintained on meds Asthma BPH Bladder mass Plan: Monitor lungs BM regimen to be maintained on regular scheduled basis Urology consultation is appreciated and christina since the cysto dx bladder tumor Feeding self now and doing better Monitor for falls Discharge plan for Wednesday (1) Cervical spinal stenosis Status: Acute (2) Constipation Status: Acute Qualifiers: Constipation type: slow transit constipation Qualified Codes: K59.01 - Slow transit constipation (3) Asthma Status: Chronic Qualifiers: Asthma severity: moderate Asthma persistence: unspecified Asthma complication type: unspecified Qualified Codes: J45.909 - Unspecified asthma, uncomplicated (4) Bilateral arm weakness Status: Acute (5) Injury of cervical spine Status: Acute Qualifiers: Encounter type: subsequent encounter Qualified Codes: S14.109D - Unspecified injury at unspecified level of cervical spinal cord, subsequent encounter (6) BPH (benign prostatic hyperplasia) Status: Chronic Qualifiers: Lower urinary tract symptom presence: symptoms absent Qualified Codes: N40.0 - Benign prostatic hyperplasia without lower urinary tract symptoms (7) Risk for falls Status: Acute (8) Bladder mass Discharge Summary Discharge Physical Examination Allergies: Coded Allergies: No Known Drug Allergies (Unverified , 11/08/18) Vitals & I&Os Vital Signs Date Time Temp Pulse Resp B/P (MAP) Pulse Ox O2 Delivery O2 Flow Rate FiO2 11/23/18 10:12 36.8 81 20 138/78 97 Room Air General Appearance: Alert, Oriented X3, Cooperative Respiratory: Clear to Auscultation Cardiovascular: Regular Rate Neuro: Normal Speech, Other (muscle strength upper arms 4/5) Psych/Mental Status: Mental Status NL, Mood NL Hospital Course Was the Problem List Reviewed?: Yes Hospital Course: Pt had [facility] inpatient rehab stay for 16 days when he was transferred after insurance approved from [facility] on Dr. Starr's service due to cervical spine surgery was such severe stenosis he was classified as having a cervical spinal cord injury. Weakness in the upper extremities was much renita matically improved at time of DC along with walking without fall risk but he does use a walker. Bowels returned back to normal and he will be working on that with laxatives as an outpatient. Bladder tumor noted by Dr. Payan during cystoscopy for urinary incontinence and retention and he will have that removed on 12/06/18 and all plans were organized by Dr. Payan. Overall very grateful for the care he received in inpatient rehab, family very pleased with the results and feels very confident with returning home today. Labs (last 24 hrs) Laboratory Tests 11/09/18 04:40: White Blood Count 9.0, Red Blood Count 4.35, Hemoglobin 14.0, Hematocrit 41, Mean Corpuscular Volume 95, Mean Corpuscular Hemoglobin 32, Mean Corpuscular Hemoglobin Concent 34, Red Cell Distribution Width 12.4, Platelet Count 257, Mean Platelet Volume 9.9, Neutrophils (%) (Auto) 69, Lymphocytes (%) (Auto) 23, Monocytes (%) (Auto) 6, Eosinophils (%) (Auto) 1, Basophils (%) (Auto) 0, Neutrophils # (Auto) 6.2, Lymphocytes # (Auto) 2.1, Monocytes # (Auto) 0.6, Eosinophils # (Auto) 0.1, Basophils # (Auto) 0.0, Sodium Level 131L, Potassium Level 4.5, Chloride Level 97L, Carbon Dioxide Level 26, Anion Gap 8, Blood Urea Nitrogen 22H, Creatinine 0.89, Estimat Glomerular Filtration Rate > 60, BUN/Creatinine Ratio 25, Glucose Level 172H, Calcium Level 9.1, Corrected Calcium 9.2, Total Bilirubin 0.5, Aspartate Amino Transf (AST/SGOT) 19, Alanine Aminotransferase (ALT/SGPT) 34, Alkaline Phosphatase 106, Total Protein 6.5, Albumin 3.9 11/14/18 04:55: White Blood Count 10.8, Red Blood Count 4.14L, Hemoglobin 13.6, Hematocrit 40, Mean Corpuscular Volume 95, Mean Corpuscular Hemoglobin 33, Mean Corpuscular Hemoglobin Concent 34, Red Cell Distribution Width 12.1, Platelet Count 265, Mean Platelet Volume 9.8, Neutrophils (%) (Auto) 77H, Lymphocytes (%) (Auto) 16, Monocytes (%) (Auto) 6, Eosinophils (%) (Auto) 1, Basophils (%) (Auto) 0, Neutrophils # (Auto) 8.3H, Lymphocytes # (Auto) 1.8, Monocytes # (Auto) 0.6, Eosinophils # (Auto) 0.1, Basophils # (Auto) 0.0, Sodium Level 135, Potassium Level 4.4, Chloride Level 101, Carbon Dioxide Level 24, Anion Gap 10, Blood Urea Nitrogen 20H, Creatinine 0.98, Estimat Glomerular Filtration Rate > 60, B UN/Creatinine Ratio 20, Glucose Level 151H, Calcium Level 9.2, Corrected Calcium 9.3, Total Bilirubin 0.5, Aspartate Amino Transf (AST/SGOT) 17, Alanine Aminotransferase (ALT/SGPT) 32, Alkaline Phosphatase 86, Total Protein 6.2L, Albumin 3.9 11/21/18 04:45: White Blood Count 6.5, Red Blood Count 3.98L, Hemoglobin 12.5L, Hematocrit 38L, Mean Corpuscular Volume 96, Mean Corpuscular Hemoglobin 31, Mean Corpuscular Hemoglobin Concent 33, Red Cell Distribution Width 12.3, Platelet Count 293, Mean Platelet Volume 9.5, Neutrophils (%) (Auto) 57, Lymphocytes (%) (Auto) 31, Monocytes (%) (Auto) 9, Eosinophils (%) (Auto) 3, Basophils (%) (Auto) 1, Neutrophils # (Auto) 3.7, Lymphocytes # (Auto) 2.0, Monocytes # (Auto) 0.6, Eosinophils # (Auto) 0.2, Basophils # (Auto) 0.0, Sodium Level 138, Potassium Level 4.4, Chloride Level 106, Carbon Dioxide Level 22, Anion Gap 10, Blood Urea Nitrogen 17, Creatinine 1.06, Estimat Glomerular Filtration Rate > 60, BUN/Creatinine Ratio 16, Glucose Level 116H, Calcium Level 8.9, Corrected Calcium 9.2, Total Bilirubin 0.2, Aspartate Amino Transf (AST/SGOT) 22, Alanine Aminotransferase (ALT/SGPT) 30, Alkaline Phosphatase 81, Total Protein 6.5, Albumin 3.6 Pending Labs Laboratory Tests 11/09/18 04:40: White Blood Count 9.0, Red Blood Count 4.35, Hemoglobin 14.0, Hematocrit 41, Mean Corpuscular Volume 95, Mean Corpuscular Hemoglobin 32, Mean Corpuscular Hemoglobin Concent 34, Red Cell Distribution Width 12.4, Platelet Count 257, Lena n Platelet Volume 9.9, Neutrophils (%) (Auto) 69, Lymphocytes (%) (Auto) 23, Monocytes (%) (Auto) 6, Eosinophils (%) (Auto) 1, Basophils (%) (Auto) 0, Neutrophils # (Auto) 6.2, Lymphocytes # (Auto) 2.1, Monocytes # (Auto) 0.6, Eosinophils # (Auto) 0.1, Basophils # (Auto) 0.0, Sodium Level 131, Potassium Level 4.5, Chloride Level 97, Carbon Dioxide Level 26, Anion Gap 8, Blood Urea Nitrogen 22, Creatinine 0.89, Estimat Glomerular Filtration Rate > 60, BUN/Creatinine Ratio 25, Glucose Level 172, Calcium Level 9.1, Corrected Calcium 9.2, Total Bilirubin 0.5, Aspartate Amino Transf (AST/SGOT) 19, Alanine Aminotransferase (ALT/SGPT) 34, Alkaline Phosphatase 106, Total Protein 6.5, Albumin 3.9 11/14/18 04:55: White Blood Count 10.8, Red Blood Count 4.14, Hemoglobin 13.6, Hematocrit 40, Mean Corpuscular Volume 95, Mean Corpuscular Hemoglobin 33, Mean Corpuscular Hemoglobin Concent 34, Red Cell Distribution Width 12.1, Platelet Count 265, Mean Platelet Volume 9.8, Neutrophils (%) (Auto) 77, Lymphocytes (%) (Auto) 16, Monocytes (%) (Auto) 6, Eosinophils (%) (Auto) 1, Basophils (%) (Auto) 0, Neutrophils # (Auto) 8.3, Lymphocytes # (Auto) 1.8, Monocytes # (Auto) 0.6, Eosinophils # (Auto) 0.1, Basophils # (Auto) 0.0, Sodium Level 135, Potassium Level 4.4, Chloride Level 101, Carbon Dioxide Level 24, Anion Gap 10, Blood Urea Nitrogen 20, Creatinine 0.98, Estimat Glomerular Filtration Rate > 60, BUN/Creatinine Ratio 20, Glucose Level 151, Calcium Level 9.2, Corrected Calcium 9.3, Total Bilirubin 0.5, Aspartate Amino Transf (AST/SGOT) 17, Alanine Aminotransferase (ALT/SGPT) 32, Alkaline Phosphatase 86, Total Protein 6.2, Albumin 3.9 11/21/18 04:45: White Blood Count 6.5, Red Blood Count 3.98, Hemoglobin 12.5, Hematocrit 38, Mean Corpuscular Volume 96, Mean Corpuscular Hemoglobin 31, Mean Corpuscular Hemoglobin Concent 33, Red Cell Distribution Width 12.3, Platelet Count 293, Mean Platelet Volume 9.5, Neutrophils (%) (Auto) 57, Lymphocytes (%) (Auto) 31, Monocytes (%) (Auto) 9, Eosinophils (%) (Auto) 3, Basophils (%) (Auto) 1, Neutrophils # (Auto) 3.7, Lymphocytes # (Auto) 2.0, Monocytes # (Auto) 0.6, Eosinophils # (Auto) 0.2, Basophils # (Auto) 0.0, Sodium Level 138, Potassium Level 4.4, Chloride Level 106, Carbon Dioxide Level 22, Anion Gap 10, Blood Urea Nitrogen 17, Creatinine 1.06, Estimat Glomerular Filtration Rate > 60, BUN/Creatinine Ratio 16, Glucose Level 116, Calcium Level 8.9, Corrected Calcium 9.2, Total Bilirubin 0.2, Aspartate Amino Transf (AST/SGOT) 22, Alanine Aminotransferase (ALT/SGPT) 30, Alkaline Phosphatase 81, Total Protein 6.5, Albumin 3.6 Discharge Home Medications: Active Scripts Active Proscar (Finasteride) 5 Mg Tablet 5 Mg PO DAILY Bactrim Ds Tablet (Sulfamethoxazole/Trimethoprim) 1 Each Tablet 1 Each PO BID Senna-Time S Tablet (Sennosides/Docusate Sodium) 1 Each Tablet 2 Ea PO BID Hydrocodone/Acetaminophen 5/325mg Tablet (Acetaminophen/Hydrocodone Bitart) 1 Tab Tab 1 Tab PO Q4H PRN Voltaren (Diclofenac Sodium) 100 Gm Gel..gram. 0 Gm TOP Q6H PRN Baclofen 10 Mg Tablet 5 Mg PO BID PRN Flomax (Tamsulosin HCl) 0.4 Mg Cap 0.4 Mg PO BID Reported Tylenol Extra Strength (Acetaminophen) 500 Mg Tablet 500 Mg PO BID Advair 250-50 Diskus (Fluticasone/Salmeterol) 1 Each Blst.w.dev 1 Puff IH DAILY Colace (Docusate Sodium) 100 Mg Capsule 100 Mg PO DAILY Instructions to patient/family Please see electronic discharge instructions given to patient. Diagnosis/Problems Diagnosis/Problems (1) Cervical spinal stenosis Status: Acute (2) Constipation Status: Acute Qualifiers: Qualified Codes: K59.01 - Slow transit constipation (3) Asthma Status: Chronic Qualifiers: Qualified Codes: J45.909 - Unspecified asthma, uncomplicated (4) Bilateral arm weakness Status: Acute (5) Injury of cervical spine Status: Acute Qualifiers: Qualified Codes: S14.109D - Unspecified injury at unspecified level of cervical spinal cord, subsequent encounter (6) BPH (benign prostatic hyperplasia) Status: Chronic Qualifiers: Qualified Codes: N40.0 - Benign prostatic hyperplasia without lower urinary tract symptoms (7) Risk for falls Status: Acute (8) Bladder mass Clinical Quality Measures DVT/VTE Risk/Contraindication: Risk Factor Score Per Nursin RFS Level Per Nursing on Admit: 4+=Very High MAYRA TORREZ DO Nov 23, 2018 21:04
--- NOTE | 2018-11-24 09:02 | Discharge Summary ---
Discharge Summary Reconcile Patient Problems Problems Reviewed?: Yes Instructions for Patient Home Health Assessment/Instructions PCP in 1 week Physician to follow Patient: PCP Discharge Diet for Home: No Restrictions Hospital Course Date of Admission: Nov 08, 2018 at 17:48 Admission Diagnosis : Family Physician/Provider: NurisLocal Physician Date of Discharge: 11/24/18 Discharge Diagnosis: [ ] Hospital Course: [ ] Labs and Pending Lab Test: Home Meds Active Proscar (Finasteride) 5 Mg Tablet 5 Mg PO DAILY Bactrim Ds Tablet (Sulfamethoxazole/Trimethoprim) 1 Each Tablet 1 Each PO BID Senna-Time S Tablet (Sennosides/Docusate Sodium) 1 Each Tablet 2 Ea PO BID Hydrocodone/Acetaminophen 5/325mg Tablet (Acetaminophen/Hydrocodone Bitart) 1 Tab Tab 1 Tab PO Q4H PRN Voltaren (Diclofenac Sodium) 100 Gm Gel..gram. 0 Gm TOP Q6H PRN Baclofen 10 Mg Tablet 5 Mg PO BID PRN Flomax (Tamsulosin HCl) 0.4 Mg Cap 0.4 Mg PO BID Reported Tylenol Extra Strength (Acetaminophen) 500 Mg Tablet 500 Mg PO BID Advair 250-50 Diskus (Fluticasone/Salmeterol) 1 Each Blst.w.dev 1 Puff IH DAILY Colace (Docusate Sodium) 100 Mg Capsule 100 Mg PO DAILY Patient Allergies: Coded Allergies: No Known Drug Allergies (Unverified , 11/08/18) Home Health Need/Face to Face Date of Face to Face: Nov 22, 2018 Clinical Findings: Generalized weakness and fatigue, Instability, Muscle weakness, Unsteady gait I have seen Pt [id number]: Yes Discharged To: Home Diagnosis/Conditions: Cervical spine injury Fall risk Bladder nodule Patient is Homebound due to: Mathew fall risk due to instabilty, Muscle weakness Homebound Status Due to the above stated illness, injury or surgical procedure (medical condition or diagnosis) and associated clinical findings, the patient is homebound because of his/her inability to leave home except with aid of a supportive device and/or person AND leaving the home requires a considerable and taxing effort or is medically contraindicated. Pt req the following assistanc: [facility] Nursing Orders Home Health Services Order: Plastic Surgery Specialist-Evaluate & Treat, Physical Therapy-Evaluate & Treat Certify Stmt I certify that this patient is under my care and that I, a nurse practitioner or a physician; a medical practice assistant working with me, had a face to face encounter that - meets the physician face to face encounter requirements with this patient as dated. MAYRA TORREZ DO Nov 24, 2018 09:02
--- OUTSIDE RECORDS SUMMARY | 2018-11-29 20:25 | XMS REPORT | Continuity of Care Document ---
Author Author [facility] Address [address] [place] [address] Phone Unavailable Care Team Providers Care Chief Environmental Commitment Officer Name Role Phone Oscar Maldonado PP Unavailable Payers Payer name Insurance type Covered green party ID Authorization(s) Unknown Problems Condition Effective Dates (start - stop) Clinical Status Influenza Vaccine - Diabetes Mellitus Type 2, Uncomplicated - *Chronic Unspecified dermatitis due to sun - *Acute Other seborrheic keratosis - *Acute Unspecified hearing loss - *Acute Actinic keratosis - *Acute Influenza Vaccine - *Routine Pure hypercholesterolemia - *Chronic Unspecified acquired hypothyroidism - *Chronic ASTHMA,UNSPECIFIED TYPE, UNSPECIFIED - *Chronic Diabetes mellitus without mention of complication, type II or unspecified type, not stated as uncontrolled - *Chronic Actinic keratosis - *Acute Contact dermatitis and other eczema, unspecified cause - *Acute Localized superficial swelling, mass, or lump - *Acute Diabetes Mellitus Type 2, Uncomplicated - *Chronic Hypercholesterolemia - *Acute Therapeutic Drug Monitoring - *Acute Asthma - *Chronic Screening for malignant neoplasms of the prostate - *Routine Unspecified arthropathy involving lower leg - *Chronic Pain in joint involving lower leg - *Chronic Actinic keratosis - *Acute Actinic keratosis - *Acute Sebaceous cyst - *Acute Sebaceous cyst - *Acute Pain in thoracic spine - *Chronic Hypothyroidism - *Chronic Family History Family Member Diagnosis Age At Onset Status Family h/o (Unknown) Diabetes Yes Family h/o (Unknown) Heart disease Yes Social History Social History Element Description Quantity alcohol Allergies, Adverse Reactions, Alerts Substance Reaction Severity Status Unknown Medications Medication Instructions Dosage Effective Dates (start - stop) Status oxybutynin chloride ER 5 mg tablet,extended release 24 hr take 1 tablet (5MG) by ORAL route every day 5 MG - Active Aleve 220 mg tablet take 1 tablet (220MG) by ORAL route every 12 hours as needed 220 MG - Active Vitamin B-6 50 mg tablet take by Oral route every day 0 - Active triamcinolone acetonide 0.1 % Topical Cream take by Oral route every day 0 - Active Vesicare 5 mg tablet take 1 tablet (5MG) by oral route every day 5 MG - Active simvastatin 40 mg tablet take 0.5 tablet (20MG) by ORAL route every day in the evening 20 MG - Active diclofenac sodium 75 mg tablet,delayed release take 1 tablet (75MG) by oral route 2 times every day 75 MG - Active triamcinolone acetonide 0.5 % Topical Cream apply by TOPICAL route 2 times every day a thin film to the affected skin areas 0 - Active ProAir HFA 90 mcg/actuation Aerosol Inhaler inhale 1 - 2 puff by INHALATION route every 4 - 6 hours as needed 0 - Active Synthroid 75 mcg tablet take 0.5 Tablet (37.5MCG) by oral route every day 37.5 MCG - Active metformin ER 500 mg tablet,extended release 24 hr take 1 tablet by oral route twice daily - Active Immunizations Vaccine Date Status Comments Fluzone HD 0.5 completed flu (split) (3 yrs or older) completed - Completed reason: Previously given Results Test Name Date and Time Measure Units Reference Range Abnormal Flag Comments Unknown Vital Signs Date / Time: Height Weight Pulse Rate Blood Pressure Temperature :57:00 218.20 lbs 115/78 mm[Hg] 98.1 F Oct-25-2013/13:58:00 122/70 mm[Hg] Procedures Procedure Date FLU VACC PRSV FREE INC ANTIG ADMINISTRATION OF FLU SHOT Encounters Encounter Location Date Patient Visit [facility] [place] Patient Visit [facility] [place] Patient Visit [facility] [place] Patient Visit [facility] [place] Patient [facility] [place] Patient [facility] [place] Patient [facility] [place] [facility] [place] Patient [facility] [place] [facility] [place] [facility] [place] [facility] [place] [facility] [place] [facility] [place] Patient [facility] [place] Patient Visit [facility] [place] Patient Visit [facility] [place] Advance Directives Directive Effective Date Unknown
--- OUTSIDE RECORDS SUMMARY | 2018-11-29 20:25 | XMS REPORT | Referral Summary ---
Author Author [facility] Organization [facility] Address Unknown Phone Unavailable Care Team Providers Care Airport Driver Name Role Phone Oscar Maldonado PCP Encounter [facility] [id number] Date(s): 10/08/14 - 10/08/14 [facility] [place] [address] [place] [address]- Discharge Diagnosis: Annual physical exam Discharge Diagnosis: History of prostatitis Discharge Diagnosis: Hyperlipidemia Discharge Diagnosis: Arthritis Discharge Diagnosis: Benign prostatic hypertrophy Discharge Diagnosis: Type 2 diabetes mellitus Discharge Diagnosis: Reactive airway disease Discharge Diagnosis: AK (actinic keratosis) Discharge Disposition: 01-Home or Self Care Attending Physician: Oscar Maldonado MD Admitting Physician: Oscar Maldonado MD Referring Physician: Oscar Maldonado MD Vital Signs Most recent to 1 oldest [Reference Range]: Blood Pressure 124/70 mmHg [90-140/60-90 mmHg] (10/08/14 11:07 AM) Problem List Condition Effective Dates Status Health Status Informant Asthma without Active status asthmaticus (disorder)(Confirmed ) Diabetes mellitus Active without mention of complication, type II or unspecified type, not stated as uncontrolled(Confirm ed) 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 ) Hypothyroidism Active (disorder)(Confirmed ) Pure Active hypercholesterolemia (disorder)(Confirmed ) Allergies, Adverse Reactions, Alerts No Known Medication Allergies Medications Advair Diskus 250 mcg-50 mcg inhalation powder 1 puffs, Inhalation, BID, # 28 Each, 0 Refill(s) Start Date: 02/06/14 Status: Ordered levothyroxine 75 mcg (0.075 mg) oral tablet See Instructions, TAKE ONE TABLET BY MOUTH EVERY DAY, # 90 tabs, 2 Refill(s), [facility], TAKE ONE TABLET BY MOUTH EVERY DAY Start Date: 02/18/15 Status: Ordered meloxicam 15 mg oral tablet See Instructions, TAKE ONE TABLET BY MOUTH EVERY DAY, # 90 tabs, 2 Refill(s), eR x: [facility], TAKE ONE TABLET BY MOUTH EVERY DAY Start Date: 07/05/14 Status: Ordered metFORMIN 500 mg oral tablet, extended release See Instructions, TAKE ONE TABLET BY MOUTH TWICE DAILY, # 180 tabs, 1 Refill(s), Pharmacy: [facility]50, TAKE ONE TABLET BY MOUTH TWICE DAILY Start Date: 02/27/15 Status: Ordered simvastatin 40 mg oral tablet See Instructions, TAKE ONE-HALF TABLET BY MOUTH EVERY DAY IN THE EVENING, # 45 t abs, 5 Refill(s), eRx: [facility] 4850, TAKE ONE-HALF TABLET BY MOUTH E VERY DAY IN THE EVENING Start Date: 01/14/15 Status: Ordered tamsulosin 0.4 mg oral capsule See Instructions, TAKE ONE CAPSULE BY MOUTH ONCE DAILY, # 30 caps, 5 Refill(s), eRx: [facility] 4850, TAKE ONE CAPSULE BY MOUTH ONCE DAILY Start Date: 04/18/15 Status: Ordered Results No data available for this section Immunizations Vaccine Date Refusal Reason influenza virus vaccine, live 12/16/12 influenza virus vaccine, live 12/22/07 Procedures Procedure Date Related Diagnosis Body Site Destruction (eg, laser surgery, 10/08/14 electrosurgery, cryosurgery, chemosurgery, surgical curettement), premalignant lesions (eg, actinic keratoses); first lesion Destruction (eg, laser surgery, 10/08/14 electrosurgery, cryosurgery, chemosurgery, surgical curettement), premalignant lesions (eg, actinic keratoses); second through 14 lesions, each (List separately in addition to code for first lesion).. Destruction (eg, laser surgery, 10/08/14 electrosurgery, cryosurgery, chemosurgery, surgical curettement), premalignant lesions (eg, actinic keratoses); second through 14 lesions, each (List separately in addition to code for first lesion).. Destruction (eg, laser surgery, 10/08/14 electrosurgery, cryosurgery, chemosurgery, surgical curettement), premalignant lesions (eg, actinic keratoses); second through 14 lesions, each (List separately in addition to code for first lesion).. H/O hernia repair Tonsillectomy Social History Social History Type Response Smoking Status Former smoker; Type: Cigarettes Assessment and Plan Extracted from: Title: Office Visit Note Author: Oscar Maldonado MD Date: 10/08/14 Assessment/Plan 1.Annual physical exam Labs were done prior to appointment results were reviewed with patient. Ordered: Periodic Comp Preventive Med 65+ years Est 35305 2.History of prostatitis Patient has finished Cipro, denies any pain or decreased flow. Ordered: Periodic Comp Preventive Med 65+ years Est 16907 3.Arthritis Stable at this time. Ordered: Periodic Comp Preventive Med 65+ years Est 85866 4.Benign prostatic hypertrophy Flomax refilled. Ordered: Periodic Comp Preventive Med 65+ years Est 53957 5.Type 2 diabetes mellitus Continue current medication. Ordered: Periodic Comp Preventive Med 65+ years Est 06884 6.Hyperlipidemia Stable with current medication. Ordered: Periodic Comp Preventive Med 65+ years Est 70837 7.Reactive airway disease Stable with current medication. Ordered: Periodic Comp Preventive Med 65+ years Est 08357 8.AK (actinic keratosis) Cryo x4 right holiness, x3 left holiness. Will recheck in 6 weeks. Orders: tamsulosin, 0.4 mg 1 caps, Oral, Daily, # 30 caps, 3 Refill(s), [id number], 1 caps Oral Daily
--- OUTSIDE RECORDS SUMMARY | 2018-11-29 20:25 | XMS REPORT | Referral Summary ---
Author Author [facility] Medicine Organization [facility] Address Unknown Phone Unavailable Care Team Providers Care Horse Doctor Name Role Phone Oscar Maldonado PCP Encounter [facility] [id number] Date(s): 02/19/15 - 02/19/15 [facility] [address] [address]- Discharge Diagnosis: Hypothyroid Discharge Diagnosis: Type 2 diabetes mellitus Discharge Diagnosis: Hyperlipidemia Discharge Diagnosis: History of prostatitis Discharge Diagnosis: Chronic neck pain Discharge Diagnosis: History of elevated PSA Discharge Diagnosis: Asthma Discharge Diagnosis: Benign prostatic hypertrophy Discharge Disposition: 01-Home or Self Care Attending Physician: Oscar Maldonado MD Admitting Physician: Oscar Maldonado MD Vital Signs Most recent to 1 oldest [Reference Range]: Blood Pressure 134/80 mmHg [90-140/60-90 mmHg] (02/19/15 8:05 AM) Problem List Condition Effective Dates Status Health Status Informant Asthma without Active status asthmaticus (disorder)(Confirmed ) Diabetes mellitus Active without mention of complication, type II or unspecified type, not stated as uncontrolled(Confirm ed) Hypothyroidism Active (disorder)(Confirmed ) Pure Active hypercholesterolemia (disorder)(Confirmed ) Allergies, Adverse Reactions, Alerts No Known Medication Allergies Medications Advair Diskus 250 mcg-50 mcg inhalation powder 1 puffs, Inhalation, BID, # 28 Each, 0 Refill(s) Start Date: 02/06/14 Status: Ordered levothyroxine 75 mcg (0.075 mg) oral tablet See Instructions, TAKE ONE TABLET BY MOUTH EVERY DAY, # 90 tabs, 2 Refill(s), Ph armacy: [facility] 4090, TAKE ONE TABLET BY MOUTH EVERY DAY Start Date: 02/18/15 Status: Ordered meloxicam 15 mg oral tablet See Instructions, TAKE ONE TABLET BY MOUTH EVERY DAY, # 90 tabs, 2 Refill(s), eR x: [facility] 6415, TAKE ONE TABLET BY MOUTH EVERY DAY Start Date: 07/05/14 Status: Ordered metFORMIN 500 mg oral tablet, extended release See Instructions, TAKE ONE TABLET BY MOUTH TWICE DAILY, # 180 tabs, eRx: [facility] 6415, TAKE ONE TABLET BY MOUTH TWICE DAILY Start Date: 06/16/14 Status: Ordered simvastatin 40 mg oral tablet See Instructions, TAKE ONE-HALF TABLET BY MOUTH EVERY DAY IN THE EVENING, # 45 t abs, 5 Refill(s), eRx: [facility] 4850, TAKE ONE-HALF TABLET BY MOUTH E VERY DAY IN THE EVENING Start Date: 01/14/15 Status: Ordered tamsulosin 0.4 mg oral capsule 0.4 mg 1 caps, Oral, Daily, # 30 caps, 3 Refill(s), Pharmacy: [facility], 1 caps Oral Daily Start Date: 10/08/14 Status: Ordered Results Chemistry Most recent to 1 oldest [Reference Range]: Sodium Lvl [135-144 141 mEq/L mEq/L] (02/19/15 9:01 AM) Potassium Lvl 4.5 mEq/L [3.5-5.2 mEq/L] (02/19/15 9:01 AM) Chloride [99-111 106 mEq/L mEq/L] (02/19/15 9:01 AM) CO2 [23-31 mEq/L] 28 mEq/L (02/19/15 9:01 AM) AGAP [3-20] 7 (02/19/15 9:01 AM) BUN [8-26 mg/dL] 22 mg/dL (02/19/15 9:01 AM) Glucose Lvl [70-99 129 mg/dL mg/dL] *HI* (02/19/15 9:01 AM) Creatinine Lvl 1.16 mg/dL [0.72-1.25 mg/dL] (02/19/15 9:01 AM) eGFR [>60 mL/min] >60 mL/min 1 (02/19/15 9:01 AM) Calcium Lvl 9.5 mg/dL [8.9-10.5 mg/dL] (02/19/15 9:01 AM) Albumin Lvl [3.4-4.8 4.3 gm/dL gm/dL] (02/19/15 9:01 AM) Total Protein 6.3 gm/dL [6.2-8.1 gm/dL] (02/19/15 9:01 AM) Globulin [1.8-4.0 2.0 gm/dL gm/dL] (02/19/15 9:01 AM) ALT [0-55 U/L] 26 U/L (02/19/15 9:01 AM) AST [5-34 U/L] 20 U/L (02/19/15 9:01 AM) Alk Phos [40-150 67 U/L U/L] (02/19/15 9:01 AM) Bili Total [0.2-1.2 0.6 mg/dL mg/dL] (02/19/15 9:01 AM) PSA Total with 1.5 ng/mL 2 Reflex Free [0.0-6.5 (02/19/15 9:01 AM) ng/mL] Hgb A1c [4.1-5.6 %] 6.3 % *HI* (02/19/15 9:01 AM) eAvg Glucose 134.1 mg/dL (02/19/15 9:01 AM) 1Result Comment: Multiply eGFR results by 1.21 for race. 2Result Comment: AUA PSA Best Practice Guidelines: Age-Adjusted PSA Values by Ethnic Group Age Range Asians - Caucasians Americans 40-49 0-2.0 0-2.0 0-2.5 50-59 0-3.0 0-4.0 0-3.5 60-69 0-4.0 0-4.5 0-4.5 70-79 0-5.0 0-5.5 0-6.5 Urinalysis Most recent to 1 oldest [Reference Range]: UA Color Yellow (02/19/15 9:02 AM) UA Appear Clear (02/19/15 9:02 AM) UA pH [5.0-8.0] 5.5 (02/19/15 9:02 AM) UA Leuk Est Negative [Negative] (02/19/15 9:02 AM) UA Nitrite Negative [Negative] (02/19/15 9:02 AM) UA Protein Negative [Negative] (02/19/15 9:02 AM) UA Glucose Negative [Negative] (02/19/15 9:02 AM) UA Ketones Negative [Negative] (02/19/15 9:02 AM) UA Urobilinogen 0.2 mg/dL [<=1.0 mg/dL] (02/19/15 9:02 AM) UA Bili [Negative] Negative (02/19/15 9:02 AM) UA Blood [Negative] Negative (02/19/15 9:02 AM) UA Spec Grav 1.025 [1.003-1.030] (02/19/15 9:02 AM) Type Clean Catch (02/19/15 9:02 AM) UA RBC [0-2] None seen (02/19/15 9:02 AM) Epithelial Cells 0-2 (02/19/15 9:02 AM) UA Bacteria Rare (02/19/15 9:02 AM) UA Mucous Present (02/19/15 9:02 AM) Immunizations Vaccine Date Refusal Reason influenza virus vaccine, live 12/16/12 influenza virus vaccine, live 12/22/07 Procedures Procedure Date Related Diagnosis Body Site H/O hernia repair Tonsillectomy Social History Social History Type Response Smoking Status Former smoker; Type: Cigarettes Assessment and Plan Extracted from: Title: Office Visit Note Author: Oscar Maldonado MD Date: 02/19/15 Assessment/Plan 1.Type 2 diabetes mellitus Continue current medication, lab pending. Needs to work on getting diet back under control. Ordered: Albumin Level Urine Comprehensive Metabolic Panel Hemoglobin A1c Office Visit Level 4 Est 29468 Urinalysis Microscopic Urine Dipstick 2.History of elevated PSA PSA pending. Ordered: Office Visit Level 4 Est 09271 PSA Total with Reflex Free 3.History of prostatitis Doing well with Flomax continue current dose. Ordered: Office Visit Level 4 Est 68423 4.Hyperlipidemia Continue current medication. Ordered: Office Visit Level 4 Est 66354 5.Asthma Stable with current medication. 6.Benign prostatic hypertrophy Doing well with current dose of Flomax. 7.Hypothyroid Continue current dose. 8.Chronic neck pain XR shows bridging arthritis. If symptoms worsen may need to schedule for MRI and NCT/EMG. Patient is unable to schedule at this time he lives [place] of start for the [place]. Ordered: XR Spine Cervical 2 or 3 Views Orders: levothyroxine, See Instructions, TAKE ONE TABLET BY MOUTH EVERY DAY, # 90 tabs, 2 Refill(s), Pharmacy: [facility]26, TAKE ONE TABLET BY MOUTH EVERY DAY
--- OUTSIDE RECORDS SUMMARY | 2018-11-29 20:25 | XMS REPORT | Referral Summary ---
Author Author [facility] Address Unknown Phone Unavailable Care Team Providers Care Luncheonette Manager Name Role Phone Oscar Maldonado PCP Encounter [facility] Date(s): 02/19/15 - 02/19/15 [facility] [place] [address] [place] [address]- [place] Discharge Disposition: 01-Home or Self Care Attending Physician: Rakel Wallace OD Admitting Physician: Rakel Wallace OD Vital Signs No data available for this section Problem List Condition Effective Dates Status Health [...] # 90 tabs, 2 Refill(s), Ph armacy: [facility]253, TAKE ONE TABLET BY MOUTH EVERY DAY Start Date: 02/18/15 Status: Ordered meloxicam 15 mg oral tablet See Instructions, TAKE ONE TABLET BY MOUTH EVERY DAY, # 90 tabs, 2 Refill(s), eR x: [facility] 6115, TAKE ONE TABLET BY MOUTH EVERY DAY Start Date: 07/05/14 Status: Ordered metFORMIN 500 mg oral tablet, extended release See Instructions, TAKE ONE TABLET BY MOUTH TWICE DAILY, # 180 tabs, eRx: [facility] 6415, TAKE ONE TABLET BY MOUTH TWICE DAILY Start Date: 06/16/14 Status: Ordered simvastatin 40 mg oral tablet See Instructions, TAKE ONE-HALF TABLET BY MOUTH EVERY DAY IN THE EVENING, # 45 t abs, 5 Refill(s), eRx: [facility]50, TAKE ONE-HALF TABLET BY MOUTH E VERY DAY IN THE EVENING Start Date: 01/14/15 Status: Ordered tamsulosin 0.4 mg oral capsule 0.4 mg 1 caps, Oral, Daily, # 30 caps, 3 Refill(s), [facility], 1 caps Oral Daily Start Date: 10/08/14 Status: Ordered Results No data available for this section Immunizations Vaccine Date Refusal Reason influenza virus vaccine, live 12/16/12 influenza virus vaccine, live 12/22/07 Procedures Procedure Date Related Diagnosis Body Site H/O hernia repair Tonsillectomy Social History Social History Type Response Smoking Status Former smoker; Type: Cigarettes Assessment and Plan No data available for this section
--- OUTSIDE RECORDS SUMMARY | 2018-11-29 20:25 | XMS REPORT | Referral Summary ---
Author Author [facility] Address Unknown Phone Unavailable Care Team Providers Care Painter Barrel Name Role Phone Oscar Maldonado PCP Encounter Date(s): 10/05/14 - 10/05/14 [facility] [place] [address] [place], [place] [address] Discharge Disposition: 01-Home or Self Care Attending Physician: Oscar Maldonado MD Admitting Physician: Oscar Maldonado MD Vital Signs No data available for this [...] # 90 tabs, 2 Refill(s), [facility], TAKE ONE TABLET BY MOUTH EVERY DAY Start Date: 02/18/15 Status: Ordered meloxicam 15 mg oral tablet See Instructions, TAKE ONE TABLET BY MOUTH EVERY DAY, # 90 tabs, 2 Refill(s), eR x: [facility] 5706, TAKE ONE TABLET BY MOUTH EVERY DAY Start Date: 07/05/14 Status: Ordered metFORMIN 500 mg oral tablet, extended release See Instructions, TAKE ONE TABLET BY MOUTH TWICE DAILY, # 180 tabs, 1 Refill(s), Pharmacy: [facility] 4850, TAKE ONE TABLET BY MOUTH TWICE DAILY Start Date: 02/27/15 Status: Ordered simvastatin 40 mg oral tablet See Instructions, TAKE ONE-HALF TABLET BY MOUTH EVERY DAY IN THE EVENING, # 45 t abs, 5 Refill(s), eRx: [facility] 4850, TAKE ONE-HALF TABLET BY MOUTH E VERY DAY IN THE EVENING Start Date: 01/14/15 Status: Ordered tamsulosin 0.4 mg oral capsule 0.4 mg 1 caps, Oral, Daily, # 30 caps, 3 Refill(s), Pharmacy: [facility] 6415, 1 caps Oral Daily Start Date: 10/08/14 Status: Ordered tamsulosin 0.4 mg oral capsule See Instructions, TAKE ONE CAPSULE BY MOUTH ONCE DAILY, # 30 caps, eRx: [facility] 4850, TAKE ONE CAPSULE BY MOUTH ONCE DAILY Start Date: 02/27/15 Status: Ordered Results No data available for this section Immunizations Vaccine Date Refusal Reason influenza virus vaccine, live 12/16/12 influenza virus vaccine, live 12/22/07 Procedures Procedure Date Related Diagnosis Body Site H/O hernia repair Tonsillectomy Social History Social History Type Response Smoking Status Former smoker; Type: Cigarettes Assessment and Plan No data available for this section
== END 2018-11-23 09:45 | disposition home health service (06) | DRG 561 ==
PROVIDERS: ADMIT Internal Medicine; ATTEND Internal Medicine
DX: Z47.89 Encounter for other orthopedic aftercare (principal); R29.898 Other symptoms and signs involving the musculoskeletal system; N40.1 Benign prostatic hyperplasia with lower urinary tract symptoms; N39.41 Urge incontinence; N32.81 Overactive bladder; R33.9 Retention of urine, unspecified; K59.01 Slow transit constipation; D49.4 Neoplasm of unspecified behavior of bladder; R21 Rash and other nonspecific skin eruption; J45.909 Unspecified asthma, uncomplicated; Z87.891 Personal history of nicotine dependence
CPT/HCPCS: 36415; 80053; 85025; 94640; 94760

== ENCOUNTER → 2018-11-17 | Day surgery (SDC) | payer MEDICARE ==
[~2018-11-17] MED LIST: ACET-2267 PO; ACHD5005 PO; BACL10TA PO; DICL100G18 TOP; DOCU-143 PO; FINA5TAB PO; FLUT1DIS26 IH; LIDOCAINE UROJET 2% GEL 10 ML PKG ONE; SENN-20 PO; SULF1TAB35 PO; TAMS0.4C98 PO
--- NOTE | 2018-11-17 18:12 | OPERATIVE REPORT ---
DATE OF SERVICE: 11/17/2018 PREOPERATIVE DIAGNOSIS: Urinary retention and incontinence. POSTOPERATIVE DIAGNOSES: Urinary retention and incontinence and medium sized bladder tumor. SURGEON: Armen Cason MD ANESTHESIA: Local. COMPLICATIONS: None. OPERATION PERFORMED: Cystoscopy. DESCRIPTION OF PROCEDURE: With the patient supine in his bed genitalia were prepped and draped in the usual sterile fashion. The urethra was infiltrated with 2% lidocaine jelly and a penile clamp was applied. This was then removed and a flexible cystoscope introduced under vision. The urethra was normal. The prostate revealed enlargement of the lateral lobe meeting in the midline causing bladder neck obstruction. Bladder was entered, revealed trabeculation and a medium sized bladder tumor at the top on the more so to the left side of the patient and looked superficial. There was no further bladder tumor visualized. Cystoscopy was confirmed in an antegrade fashion and the cystoscope was removed. The patient tolerated the procedure and anesthesia well and remained in his bed in stable condition. I had a lengthy discussion with him and his about the plan for both BPH and retention and incontinence as well as the tumor. Foe the BPH he started voiding pattern, good stream, he is emptying bladder after we stopped the Sanctura. We are going to leave him on the Flomax twice a day for now. I will add Proscar and manage accordingly. We may try him later on when he becomes more ambulatory and back to his activity on Myrbetriq and see if that helps his incontinence without causing retention and we will start with 25 mg dose. This was explained to them. For the bladder tumor depending on the medical condition and the postoperative condition if there is no contraindication to a TURBT. I could perform that next Wednesday or Wednesday before the patient goes home. The procedure was fully explained to them. I will discuss that with Dr. Mercado and decide accordingly. Job ID: [id number] DocumentID: [id number] Dictated Date: 11/17/2018 11:08:05 Review Manager Date: 11/17/2018 18:11:11 Dictated By: ARMEN CASON MD
== END | disposition home or self-care (01) ==
LOC: SDC 09:53
PROVIDERS: ATTEND Urology
DX: N40.1 Benign prostatic hyperplasia with lower urinary tract symptoms (principal); N32.0 Bladder-neck obstruction; R33.8 Other retention of urine; R32 Unspecified urinary incontinence; D49.4 Neoplasm of unspecified behavior of bladder; N32.81 Overactive bladder; Z98.890 Other specified postprocedural states

== ENCOUNTER 2018-12-06 06:28 | Day surgery (SDC) | payer MEDICARE ==
[~2018-12-06] VITALS: Ht 180.3 cm; Wt 89.8 kg
[2018-12-06] VITALS (10 sets, daily range): BP systolic 122–149; BP diastolic 56–80
[~2018-12-06 06:28] MED LIST changes: -LIDOCAINE UROJET 2% GEL 10 ML PKG ONE
--- NOTE | 2018-12-06 07:10 | Progress Note-Pre Operative ---
Pre-Operative Progress Note H&P Reviewed The H&P was reviewed, patient examined and no changes noted. Date Seen by Provider: Dec 06, 2018 Time Seen by Provider: 07:09 Date H&P Reviewed: Dec 06, 2018 Time H&P Reviewed: 07:09 Pre-Operative Diagnosis: BLADDER TUMOR (MEDIUM) REHANA CASON MD Dec 06, 2018 07:10
--- NOTE | 2018-12-06 07:11 | Progress Note-Post Operative ---
Post-Operative Progess Note Surgeon (s)/Accounts Receivable Administrator (s) Surgeon REHANA CASON MD Accounts Receivable Administrator: NONE Pre-Operative Diagnosis BLADDER TUMOR (MEDIUM) Post-Operative Diagnosis BLADDER TUMOR (LARGE) Procedure & Operative Findings Date of Procedure 12/06/18 Procedure Performed/Findings TURBT Anesthesia Type GENERAL Estimated Blood Loss Estimated blood loss (mL): NEGLIGIBLE Specimens/Packing Specimens Removed BLADDER TUMOR AND BASE Packing: NONE REHANA CASON MD Dec 06, 2018 07:11
--- NOTE | 2018-12-06 07:12 | Discharge Inst-Urology ---
Discharge Inst-Urology Reconcile Patient Problems Problems Reviewed?: Yes Final Diagnosis LARGE BLADDER TUMOR Patient Instructions/Follow Up Plan/Assessment/Instructions Please make appointment to been seen in office in 2 weeks. Increase oral fluids for 48 hours and then as needed. Diet and Activity as tolerated. If questions or concerns contact your physician Or seek help at emergency department. REHANA CASON MD Dec 06, 2018 07:12
[2018-12-06] MEDS ORDERED: ONDANSETRON 4 MG/2 ML (SDV) Z0FRAN ONE (07:14)
[2018-12-06] MEDS ORDERED: fentaNYL INJECTION 100 MCG/2 ML AMP ONE (07:14)
[2018-12-06] MEDS ORDERED: proPOfol 200 MG/20 ML (DIPRIVAN) VIAL IV ONE (07:14)
[2018-12-06] MEDS ORDERED: DEXAMETHASONE 10 MG/ML (DECADRON) 1 ML VIAL ONE (07:14)
[2018-12-06] MEDS ORDERED: LIDOCAINE PF 2% 5 ML (XYLOCAINE) VIAL ONE (07:14)
[2018-12-06] MEDS ORDERED: SEVOFLURANE (ULTANE) 15 ML INHAL SOLN ONE ×3 (07:14→08:53)
[2018-12-06] MEDS ORDERED: LACTATED RINGERS 1,000 ML IV PRN (07:21)
[2018-12-06] MEDS ORDERED: cefTRIAXone 1,000 MG/SWFI 10 ML IV PUSH IV ONE ×2 (07:45)
[2018-12-06] MEDS ORDERED: GENTAMICIN 40 MG/ML 2 ML INJ SDV ONE (08:05)
[2018-12-06] MEDS ORDERED: ROCURONIUM 10 MG/ML 5 ML SYRINGE IV ONE (08:15)
[2018-12-06] MEDS ORDERED: NEOSTIGMINE 3 MG/3 ML VIAL ONE (08:23)
[2018-12-06] MEDS ORDERED: GLYCOPYRROLATE 0.2 MG/ML (ROBINUL) 2 ML VIAL ONE (08:23)
[2018-12-06] MEDS ORDERED: morphine INJ 10 MG/ML 1ML (SYR OR VIAL) IVP ONE (09:15)
[2018-12-06] MEDS ORDERED: ONDANSETRON 4 MG/2 ML (SDV) Z0FRAN IVP PRN (09:15)
[2018-12-06] MEDS ORDERED: FINA5TAB PO (10:16)
[2018-12-06] MEDS ORDERED: PHEN-640 PO (10:16)
[2018-12-06] MEDS ORDERED: SULF1TAB35 PO (10:16)
--- NOTE | 2018-12-06 10:43 | Anesthesia-General Post-Op ---
General Patient Condition Mental Status/LOC: Same as Preop Cardiovascular: Satisfactory Nausea/Vomiting: Absent Respiratory: Satisfactory Pain: Controlled Complications: Absent Post Op Complications Complications None Follow Up Care/Instructions Patient Instructions None needed. Anesthesia/Patient Condition Patient Condition Patient is doing well, no complaints, stable vital signs, no apparent adverse anesthesia problems. No complications reported per nursing. MINDA ARRIAGA CRNA Dec 06, 2018 10:43
--- NOTE | 2018-12-06 11:05 | NUR ---
THIS RN PHONED DR. CASON TO INFORM THAT PATIENT IRRIGATION LINE IS TO SLOW DRIP AND LINE IS PINK TINGED WITH NO COMPLAINTS OF PAIN. INFORMED TO ASK PATIENT IF THEY WANT TO PULL CATHETER OR TO LEAVE IN AND GO TO OFFICE TOMORROW AND HAVE REMOVED. PATIENT DECIDED TO HAVE PULLED TODAY. THIS RN INFORMED DR. CASON AT 1125. PATIENT HAS BEEN EDUCATED TO LET DR. CASON KNOW IF ANY PROBLEMS ARISE AND TO GO TO NEAREST EMERGENCY ROOM AFTER HOURS IF NECESSARY. THIS RN TO REMOVE COREAS AND DISCHARGE PATIENT.
--- NOTE | 2018-12-06 14:25 | OPERATIVE REPORT ---
DATE OF SERVICE: 12/06/2018 PREOPERATIVE DIAGNOSIS: Medium sized bladder tumor. POSTOPERATIVE DIAGNOSIS: Large sized bladder tumor. OPERATION PERFORMED: Transurethral resection of bladder tumor. SURGEON: Rehana Cason MD ANESTHESIA: General. COMPLICATIONS: None. DESCRIPTION OF PROCEDURE: Under satisfactory general anesthesia, the patient in lithotomy position, genitalia were prepped and draped in the usual sterile fashion. Urethra was dilated with Comfort sound to accommodate a 27-Lao Garcia resectoscope, visualized the large bladder tumor present in the anterior wall of the bladder extending from the left size to pass the midline close to the bladder neck. It was first papillary, but as we got into it that showed more solid consistency. I was able to resect the tumor completely despite the size and the position of the tumor. I obtained several cuts from the base of the tumor across it cauterized all the bleeders. Hemostasis was complete. All the chips were sent to pathology separately from the basis. I went ahead and inserted a 30 mL balloon catheter into the bladder, inflated the balloon to 30 mL, connected to continuous bladder irrigation, the return of which was clear. We will leave the catheter until he is fully awake and then according to the color of the urine and wish of the patient because of history of retention, we will send him with or without a catheter . This was fully explained to the later will be explained to the patient. Job ID: [id number] DocumentID: [id number] Dictated Date: 12/06/2018 09:15:15 Video Production Specialist Date: 12/06/2018 14:23:32 Dictated By: REHANA CASON MD
== END 2018-12-06 12:15 | disposition home or self-care (01) ==
LOC: SDC 06:28
PROVIDERS: ATTEND Urology
DX: C67.9 Malignant neoplasm of bladder, unspecified (principal); J45.909 Unspecified asthma, uncomplicated; G62.9 Polyneuropathy, unspecified; Z79.891 Long term (current) use of opiate analgesic
CPT/HCPCS: 87081